=== PATIENT | male | born 1965 | race Caucasian/White ===

== ENCOUNTER 2022-04-07 00:26 | Inpatient (IN) | payer MEDICARE ==
[~2022-04-07] VITALS: Ht 172.7 cm; Wt 123.1 kg
[2022-04-07] MEDS ORDERED: LABETALOL HCL 5 MG/ML 4ML SYRINGE IV ONE ×3 (01:30→03:15)
[2022-04-07] MEDS ORDERED: FUROSEMIDE 100 MG/10ML VIAL IV ONE (01:30)
[2022-04-07 02:12] LABS: Basophils # (auto) 0.1 10 ^3/uL (0-0.2); Basophils % (auto) 0.8 % (0.0-2.0); Eosinophils # (auto) 0.1 10 ^3/uL (0-0.8); Eosinophils % (auto) 1.2 % (0.0-7.0); Hemoglobin 14.5 g/dL (13.5-17.5); Lymphocytes # (auto) 1.3 10 ^3/uL (0.4-5.4); Lymphocytes % (auto) 12.7 % (10.0-50.0); Mean Corpuscular Hemoglobin 31.2 pg (28.0-32.0); Mean Corpuscular Hgb Conc. 33.6 g/dL (32.0-36.0); Mean Corpuscular Volume 92.7 fL (80.0-100.0); Monocytes # (auto) 0.8 10 ^3/uL (0-1.3); Monocytes % (auto) 8.4 % (0.0-12.0); Neutrophils # (auto) 7.6 10 ^3/uL (1.6-8.6); Neutrophils % (auto) 76.9 % (37.0-80.0); Nucleated Red Blood Cells % 0.1 %; Red Blood Cells 4.64 10^6/uL (4.5-5.90); Red Cell Distribution Width 13.9 % (11.8-14.3); White Blood Cell 9.9 10^3/uL (4.4-10.8)
[2022-04-07 02:33] LABS: Albumin 3.2 g/dL (3.4-5.0); Calcium 8.9 mg/dL (8.5-10.1); Potassium 4.3 mmol/L (3.5-5.1)
[2022-04-07 02:35] LABS: BUN/Creatinine Ratio 17.5
[2022-04-07 02:38] LABS: Bilirubin, Total 0.9 mg/dL (0.2-1.0); Total Protein 6.8 g/dL (6.4-8.2)
[2022-04-07] MEDS ORDERED: cloNIDine HCL 0.1 MG TAB PO ONE (03:15)
[2022-04-07] MEDS ORDERED: hydrALAZINE HCL 20 MG/ML VL IV ONE (03:15)
[2022-04-07] MEDS ORDERED: ASPirin-EC 325mg tab PO ONE (03:30)
[2022-04-07] MEDS ORDERED: MORPHINE SULFATE INJ 2 MG/ml SYRG IV PRN (04:15)
[2022-04-07] MEDS ORDERED: ONDANSETRON HCL 4 MG/2 ML VIAL IV PRN (04:15)
[2022-04-07] MEDS ORDERED: cloNIDine HCL 0.1 MG TAB PO PRN (04:15)
[2022-04-07] MEDS ORDERED: NITROGLYCERIN 0.4 MG SL TAB SL PRN (04:15)
[2022-04-07 05:02] LABS: Urine Bacteria FEW /hpf (None Seen); Urine Blood Negative /uL (Negative); Urine Specific Gravity 1.008 (1.001-1.035); Urine Sperm PRESENT /hpf (None Seen); Urine WBC 1 /hpf (0 - 3)
[2022-04-07] MEDS: FUROSEMIDE 20 MG/2 ML VIAL IV SCH ×2 (09:02→17:58)
[2022-04-07] MEDS: ENOXAPARIN SOD 40 MG/0.4 ML SYRINGE SC SCH (10:26)
[2022-04-07] MEDS: LISINOPRIL 10 MG TAB PO SCH (10:27)
[2022-04-07] MEDS: PANTOPRAZOLE 40 MG TAB PO SCH (10:27)
[2022-04-07] MEDS: ASPirin 81 mg TAB PO SCH (10:27)
[2022-04-07] MEDS: CARVEDILOL 3.125 MG TAB PO SCH ×2 (10:28→22:32)
[2022-04-07 18:08] VITALS: BP 138/82
[2022-04-07 22:00] VITALS: BP 134/69
[2022-04-07] MEDS ORDERED: ATORVASTATIN 20 MG TAB PO SCH (22:00)
[2022-04-08 05:00] VITALS: BP 149/117
[2022-04-08] MEDS: FUROSEMIDE 20 MG/2 ML VIAL IV SCH (05:29)
[2022-04-08 06:03] LABS: Basophils # (auto) 0.1 10 ^3/uL (0-0.2); Eosinophils # (auto) 0.2 10 ^3/uL (0-0.8); Eosinophils % (auto) 1.9 % (0.0-7.0); Hematocrit 43.7 % (41.0-53.0); Hemoglobin 14.3 g/dL (13.5-17.5); Lymphocytes # (auto) 1.3 10 ^3/uL (0.4-5.4); Lymphocytes % (auto) 14.4 % (10.0-50.0); Mean Corpuscular Hemoglobin 30.4 pg (28.0-32.0); Mean Corpuscular Hgb Conc. 32.8 g/dL (32.0-36.0); Mean Corpuscular Volume 92.7 fL (80.0-100.0); Monocytes # (auto) 0.8 10 ^3/uL (0-1.3); Monocytes % (auto) 8.5 % (0.0-12.0); Neutrophils # (auto) 6.8 10 ^3/uL (1.6-8.6); Neutrophils % (auto) 74.2 % (37.0-80.0); Nucleated Red Blood Cells % 0.1 %; Red Blood Cells 4.72 10^6/uL (4.5-5.90); Red Cell Distribution Width 14.1 % (11.8-14.3); White Blood Cell 9.1 10^3/uL (4.4-10.8)
[2022-04-08 06:18] LABS: Magnesium 2.1 mg/dL (1.6-2.6)
[2022-04-08 06:21] LABS: BUN/Creatinine Ratio 19.8; Calcium 8.3 mg/dL (8.5-10.1); Potassium 3.8 mmol/L (3.5-5.1)
[2022-04-08 06:24] LABS: Bilirubin, Total 0.6 mg/dL (0.2-1.0); Total Protein 6.5 g/dL (6.4-8.2)
[2022-04-08 08:00] VITALS: BP 175/131
[2022-04-08] MEDS: PANTOPRAZOLE 40 MG TAB PO SCH (08:19)
[2022-04-08] MEDS: ENOXAPARIN SOD 40 MG/0.4 ML SYRINGE SC SCH (08:19)
[2022-04-08] MEDS: ASPirin 81 mg TAB PO SCH (08:19)
[2022-04-08] MEDS: LISINOPRIL 10 MG TAB PO SCH (08:20)
[2022-04-08] MEDS: CARVEDILOL 3.125 MG TAB PO SCH (08:22)
[2022-04-08 09:20] VITALS: BP 175/131
[2022-04-08 12:50] VITALS: BP 121/79
[2022-04-08] MEDS ORDERED: ATORVASTATIN 20 MG TAB PO SCH (22:00)
[2022-04-09] MEDS ORDERED: LISINOPRIL 20 MG TAB PO SCH (10:00)
== END 2022-04-08 16:00 | disposition left against medical advice (07) | DRG 291 ==
LOC: ER 00:29 → TELE 05:22 → TELE-CENTR 16:45
PROVIDERS: ADMIT Nurse Practitioner; ATTEND Nurse Practitioner Acute Care
DX: I11.0 Hypertensive heart disease with heart failure (principal); I50.23 Acute on chronic systolic (congestive) heart failure; J96.01 Acute respiratory failure with hypoxia; Z68.41 Body mass index [BMI] 40.0-44.9, adult; Z53.29 Procedure and treatment not carried out because of patient's decision for other reasons; Z20.822 Contact with and (suspected) exposure to COVID-19; E66.9 Obesity, unspecified; F17.210 Nicotine dependence, cigarettes, uncomplicated; G47.33 Obstructive sleep apnea (adult) (pediatric); Z91.14 Patient's other noncompliance with medication regimen
CPT/HCPCS: 36415; 71045; 80053; 80061; 81001; 82962; 83735; 83880; 84484; 85025; 87426; 93005; 93306; 96372; 96374; 96375; 96376; 99291; G0378; J3490

== ENCOUNTER 2022-06-17 07:11 | Day surgery (SDC) | payer MEDICARE ==
[~2022-06-17] VITALS: Ht 172.7 cm; Wt 104.3 kg
[2022-06-17] VITALS (7 sets, daily range): BP systolic 118–147; BP diastolic 79–99
[~2022-06-17 07:11] MED LIST: AMLO-489 PO; ATOR20TA50 PO; CLON0.1T PO; FURO40TA4 PO; LISI-706 PO; LORA-622 PO; METF-370 PO; METO-159 PO; MONT-8 PO; POTA-180 PO; QUET1TAB11 PO
[2022-06-17] MEDS ORDERED: ANGIOMAX 250 MG VIAL IV ONE (09:09)
[2022-06-17] MEDS ORDERED: fentaNYL CITRATE 100 MCG/2 ML VL ONE (09:09)
[2022-06-17] MEDS ORDERED: MIDAZOLAM HCL 2MG/2ML 2ml VIAL (1mg/ml) ONE (09:09)
[2022-06-17] MEDS ORDERED: HEPARIN SODIUM (PORCINE) 5000 UNITS/ML 1ML VIAL ONE (09:09)
[2022-06-17] MEDS ORDERED: VERAPAMIL 2.5MG/ML INJ 2ML VIAL IV ONE (09:09)
[2022-06-17] MEDS ORDERED: SODIUM CHL 0.9% 0 ML ONE (09:09)
[2022-06-17] MEDS ORDERED: LIDOCAINE 2%HCL (LOCAL ANESTH.) INJ 10ml MDV ONE (09:10)
[2022-06-17] MEDS ORDERED: IODIXANOL 320MG/ML 100ML BTL IV ONE (09:10)
== END 2022-06-17 12:05 | disposition home or self-care (01) ==
LOC: CATH 07:11
PROVIDERS: ATTEND Internal Medicine Cardiovascular Disease
DX: I25.10 Atherosclerotic heart disease of native coronary artery without angina pectoris (principal); I42.8 Other cardiomyopathies; I50.20 Unspecified systolic (congestive) heart failure; J44.9 Chronic obstructive pulmonary disease, unspecified; E66.01 Morbid (severe) obesity due to excess calories; Z98.890 Other specified postprocedural states; Z79.899 Other long term (current) drug therapy; E11.9 Type 2 diabetes mellitus without complications; Z79.84 Long term (current) use of oral hypoglycemic drugs; Z20.822 Contact with and (suspected) exposure to COVID-19
CPT/HCPCS: 93458; C1769; C1887; C1894; C9803; J1644; J2001; J2250; J3010; J7030; Q9967; U0003; 99152

== ENCOUNTER 2024-07-31 19:38 | Inpatient (IN) | payer MEDICARE ==
[~2024-07-31] VITALS: Ht 167.6 cm; Wt 116.8 kg
[~2024-07-31 19:38] MED LIST changes: -AMLO-489 PO; +AMLO1TAB22 PO
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
[2024-07-31 20:26] LABS: Basophils # (auto) 0.1 10 ^3/uL (0-0.2); Basophils % (auto) 0.4 % (0.0-2.0); Eosinophils # (auto) 0.1 10 ^3/uL (0-0.8); Eosinophils % (auto) 0.6 % (0.0-7.0); Hematocrit 40.3 % (41.0-53.0); Lymphocytes # (auto) 0.4 10 ^3/uL (0.4-5.4); Lymphocytes % (auto) 2.3 % (10.0-50.0); Mean Corpuscular Hemoglobin 27.6 pg (28.0-32.0); Mean Corpuscular Hgb Conc. 32.1 g/dL (32.0-36.0); Mean Corpuscular Volume 85.8 fL (80.0-100.0); Monocytes # (auto) 1.4 10 ^3/uL (0-1.3); Neutrophils # (auto) 13.8 10 ^3/uL (1.6-8.6); Neutrophils % (auto) 87.7 % (37.0-80.0); Nucleated Red Blood Cells % 0.1 %; Platelet Count (auto) 292 10^3/uL (140-450); Red Cell Distribution Width 16.4 % (11.8-14.3); White Blood Cell 15.8 10^3/uL (4.4-10.8)
[2024-07-31] MEDS: ACETAMINOPHEN 325 MG TAB PO ONE (20:30)
[2024-07-31 20:41] LABS: INR 1.19 (0.9-1.15); Partial Thromboplastin Time 26.9 SEC (24.5-34.5); Prothrombin Time 12.4 sec (9.3-11.8)
[2024-07-31 20:42] LABS: Alanine Aminotransferase 28 U/L (7-40); Albumin 3.8 g/dL (3.2-4.8); Anion Gap 5 (5-15); Aspartate Aminotransferase 34 U/L (13-40); BUN/Creatinine Ratio 23.5 (10.0-20.0); Calcium 8.9 mg/dL (8.7-10.4); Potassium 4.1 mmol/L (3.5-5.1)
[2024-07-31 20:43] LABS: Alkaline Phosphatase 162 U/L (46-116); Blood Alcohol < 3.0 mg/dL (<10); Blood Urea Nitrogen 23 mg/dL (9-23); Carbon Dioxide 32 mmol/L (20-31); Chloride 94 mmol/L (98-107); Glucose 192 mg/dL (74-106); Sodium 131 mmol/L (136-145); Total Protein 6.8 g/dL (5.7-8.2)
--- NOTE | 2024-07-31 20:56 | DVH ---
CHEST RADIOGRAPH Indication: sob Technique: Single frontal view of the chest was obtained COMPARISON: EKG on DOS: 04/07/22, EKG on DOS: 04/07/22, CXRP on DOS: 04/07/22, CHEST PORTABLE on DOS: 04/07/22, EKG on DOS: 04/06/22 FINDINGS: Lines and Tubes: None Lungs: Low lung volumes. Bibasilar atelectasis/consolidation. Pleura: No effusion. No pneumothorax. Cardiomediastinal contours: Moderate cardiomegaly. IMPRESSION: Low lung volumes. Bibasilar atelectasis/consolidation. Moderate cardiomegaly.
--- NOTE | 2024-07-31 21:13 | DVH ---
Exam: CT CT AB PEL WO CON-NO ORAL OR IV History: abd pain Comparison Study: None available at time of dictation. TECHNIQUE: Multidetector CT of the abdomen and pelvis without contrast. Axial, coronal and sagittal m ultiplanar reformats were obtained from the axial data set by the technologist. Radiation Dose Information: CT Dose: CTDI volume is 24.86 mGy. Dose-length product is 1393.05 mGy*cm FINDINGS: Partially imaged right lower lobe consolidation with trace right-sided pleural effusion. Ogxr-na-qyrd rate cardiomegaly. Mild ascites. Mild hepatomegaly. No focal hepatic lesion. Spleen, pancreas and adrenal glands are u nremarkable. Gallbladder is decompressed with mild nonspecific wall thickening and surrounding ascite s limiting evaluation for acute cholecystitis. Mild to moderate nonspecific bilateral perirenal fat stranding. No hydronephrosis bilaterally. Punct ate nonobstructing left renal calculus. Urinary bladder is unremarkable. Prostate measures 3.6 x 3.7 by 3.4 cm. Mild gastric wall thickening. Mild wall thickening of proximal small bowel loops. The remainder of t he small bowel loops unremarkable. Appendix is not definitely visualized. Mild distal rectal wall thi ckening colonic diverticulosis with limited evaluation for diverticulitis given ascites. Moderate marianne unt of fecal material within the colon. No evidence of intraperitoneal free air. No evidence of aortic aneurysm. Cevw-qs-idyrnelr atheroscler otic calcification of the aorta and bilateral iliacs. Shotty para-aortic lymph nodes. Small to moderate fat containing bilateral inguinal hernias. Multiple small and moderate sized fat an d ascitic fluid containing periumbilical hernias. Mild soft tissue edema. Appears to be old fracture deformity of the left pelvic bone. No evidence of acute fractures. Punctate hyperdensities within th e soft tissues of the left posterior pelvic region. IMPRESSION: Mild ascites. Mild gastric and proximal small bowel wall thickening which may be due to inadequate distention with/ gastroenteritis. Dayu-ox-[id number] nonspecific bilateral perinephric fat stranding. Infectious process can not be excl uded. Decompressed gallbladder with no evidence of cholelithiasis and nonspecific gallbladder wall thickeni ng. Right upper quadrant ultrasound may be considered for further evaluation if clinically indicated . Punctate nonobstructing left renal calculus. Moderate amount of fecal material within the colon. Colonic diverticulosis without diverticulitis. Mild distal rectal wall thickening which may be due to inadequate distention with neoplasm not exclud ed. Right lower lobe pneumonia with trace ascites. Additional findings as above.
[2024-07-31 21:30] VITALS: PULSE 71; RESP 18; O2SAT 92
[2024-07-31] MEDS: cefTRIAXone 1GM/50ML D5W 50 ML IV ONE (22:04)
[2024-07-31 22:50] LABS: Base Excess 4.5 mmol/L (-2.0-3.0)
[2024-07-31 23:08] VITALS: PULSE 78; O2SAT 98
[2024-07-31 23:12] VITALS: BP 169/94; PULSE 93; RESP 16; TEMP 100.9; O2SAT 98
--- NOTE | 2024-07-31 23:27 | DVH ---
CT HEAD WITHOUT CONTRAST INDICATION: LETHARGY COMPARISON: None TECHNIQUE: CT of the head without intravenous contrast. RADIATION DOSE: CTDIvol: 69.01 mGy, DLP: 2265.47 mGy*cm FINDINGS: There is no evidence of intracranial hemorrhage, infarct, extra-axial collection, mass effect, midli ne shift, herniation or hydrocephalus. The ventricles, sulci and cisterns are normal. The luque-whit e differentiation is normal. Probable old fracture of inferior wall of left orbit. No calvarial abnormality/fracture. Circumferent ial mucosal thickening in bilateral maxillary sinuses, mild mucosal thickening in left sphenoid sinus . Nonspecific right-sided mastoid effusion. IMPRESSION: No intracranial abnormality identified.
[2024-08-01] VITALS (7 sets, daily range): BP systolic 97–148; BP diastolic 73–87; PULSE 64–77; RESP 20; TEMP 97.6; O2SAT 96–100
[2024-08-01] MEDS ORDERED: CLON0.1T PO (03:49)
[2024-08-01] MEDS ORDERED: AMLO1TAB22 PO (03:49)
[2024-08-01] MEDS ORDERED: BUME1TAB3 PO (03:49)
[2024-08-01] MEDS ORDERED: POTA-220 PO (03:49)
[2024-08-01] MEDS ORDERED: CARV12.544 PO (03:49)
[2024-08-01] MEDS ORDERED: LOSA-535 PO (03:49)
[2024-08-01 06:18] LABS: Amphetamine Screen, Urine Pos (NEGATIVE); Barbiturate Scree,Urine Neg (NEGATIVE); Benzodiazephine Screen, Urine Neg (NEGATIVE); Cannabinoid Screen, Urine Neg (NEGATIVE); Cocaine Screen, Urine Neg (NEGATIVE); Opiate Scree,Urine Neg (NEGATIVE); Phencyclidine Screen, Urine Neg (NEGATIVE)
[2024-08-01 08:07] LABS: Basophils # (auto) 0.1 10 ^3/uL (0-0.2); Basophils % (auto) 0.5 % (0.0-2.0); Eosinophils # (auto) 0.1 10 ^3/uL (0-0.8); Eosinophils % (auto) 0.3 % (0.0-7.0); Hematocrit 39.5 % (41.0-53.0); Lymphocytes # (auto) 0.7 10 ^3/uL (0.4-5.4); Lymphocytes % (auto) 4.7 % (10.0-50.0); Mean Corpuscular Hemoglobin 28.1 pg (28.0-32.0); Mean Corpuscular Hgb Conc. 32.9 g/dL (32.0-36.0); Mean Corpuscular Volume 85.5 fL (80.0-100.0); Monocytes # (auto) 1.2 10 ^3/uL (0-1.3); Monocytes % (auto) 7.8 % (0.0-12.0); Neutrophils # (auto) 12.9 10 ^3/uL (1.6-8.6); Neutrophils % (auto) 86.7 % (37.0-80.0); Nucleated Red Blood Cells % 0.1 %; Platelet Count (auto) 269 10^3/uL (140-450); Red Blood Cells 4.62 10^6/uL (4.5-5.90); Red Cell Distribution Width 16.3 % (11.8-14.3); White Blood Cell 14.9 10^3/uL (4.4-10.8)
[2024-08-01 08:10] LABS: Alanine Aminotransferase 24 U/L (7-40); Albumin 3.6 g/dL (3.2-4.8); Anion Gap 2 (5-15); Aspartate Aminotransferase 24 U/L (13-40); BUN/Creatinine Ratio 22.7 (10.0-20.0); Blood Urea Nitrogen 20 mg/dL (9-23); Calcium 9.1 mg/dL (8.7-10.4); Potassium 4.5 mmol/L (3.5-5.1)
[2024-08-01 08:11] LABS: Total Protein 6.4 g/dL (5.7-8.2)
[2024-08-01 08:15] LABS: Alkaline Phosphatase 141 U/L (46-116); Carbon Dioxide 38 mmol/L (20-31); Chloride 96 mmol/L (98-107); Glucose 161 mg/dL (74-106); Sodium 136 mmol/L (136-145)
[2024-08-01] MEDS ORDERED: DOCUSATE SOD 100 MG CAP PO PRN (09:00)
[2024-08-01] MEDS ORDERED: HYDROcodone-ACET 5/325MG TAB PO PRN (09:00)
[2024-08-01] MEDS ORDERED: NITROGLYCERIN 0.4 MG SL TAB SL PRN (09:00)
[2024-08-01] MEDS ORDERED: ONDANSETRON HCL 4 MG/2 ML VIAL IV PRN (09:00)
--- NOTE | 2024-08-01 09:13 | DVHHP2 ---
History of Present Illness Reason for Visit: Shortness of breath History of Present Illness Howard Sanders Jr is a 58-year-old male with past medical history of CHF, hypertension, diabetes, and COPD with home oxygen use, who came in due to shortness of breath. Patient states has had shortness of breath for years, but it worsened over the last 2 days prompting him to come to the hospital. Patient appears to have sever sleep apnea. BiPAP orders for while sleeping in place, patient tolerates it well. Cardiovascular: CHF, HTN Pulmonary: COPD Endocrine: Diabetes Smoke: Quit (1 month ago) ALCOHOL: none Drugs: Other (Denies drug use, UDS positive for methamphetamines) Lives: with Family Domestic Violence: Neg Review of Systems Constitutional: Yes: Malaise; No: Fever, Chills, Sweats, Weakness, Other Eyes: No: Pain, Vision change, Conjunctivae inflammation, Eyelid inflammation, Other, Redness ENT: No: Ear pain, Ear discharge, Nose pain, Nose discharge, Nose congestion, Mouth pain, Mouth swelling, Throat pain, Throat swelling, Other Respiratory: Cough, Shortness of breath, SOB with excertion, Wheezing; No: Dry, Hemoptysis, Pleuritic Pain, Sputum, Wheezing, Other Cardiovascular: No: Chest Pain, Palpitations, Orthopnea, Paroxysmal Noc. Dyspnea, Edema, Lt Headedness, Other Gastrointestinal: No: Nausea, Vomiting, Abdominal Pain, Diarrhea, Constipation, Melena, Hematochezia, Other Genitourinary: No Dysuria, No Frequency, No Incontinence, No Hematuria, No Retention, No Other Musculoskeletal: No: other, neck pain, shoulder pain, arm pain, back pain, hand pain, leg pain, foot pain Skin: No: Rash, Lesions, Jaundice, Bruising, Other Neurological: No: Weakness, Numbness, Incoordination, Change in speech, Confusion, Seizures, Other Allergies: Coded Allergies: Gabapentin (Verified Allergy, Severe, 04/07/22) Hydrocodone (Verified Allergy, Severe, 06/13/22) Pt states he can take [place] no problem. It's only the brand name vicodin, also no problem with tylenol. Medications Current Medications Medications Dose Ordered Sig/Carlos Alberto Route Start Time Stop Time Status Last Admin Dose Admin Sodium Chloride 10 ml Q8HR IV 08/01/24 14:00 UNV Acetaminophen/ Hydrocodone Bitart 1 tab Q4HP PRN PO 08/01/24 09:00 UNV Ondansetron HCl 4 mg Q4HP PRN IV 08/01/24 09:00 UNV Docusate Sodium 100 mg BIDPRN PRN PO 08/01/24 09:00 UNV Acetaminophen 650 mg Q6HP PRN PO 08/01/24 09:00 UNV Nitroglycerin 0.4 mg Q5MINP PRN SL 08/01/24 09:00 UNV Morphine Sulfate 2 mg Q30M PRN IV 08/01/24 09:00 UNV Amlodipine Besylate 5 mg DAILY PO 08/01/24 10:00 UNV Atorvastatin Calcium 20 mg HS PO 08/01/24 22:00 UNV Bumetanide 1 mg BID PO 08/01/24 10:00 UNV Carvedilol 12.5 mg BID PO 08/01/24 10:00 UNV Patient Own Medication 100 mg DAILY PO 08/01/24 10:00 UNV Exam Vital Signs Vital Signs Date Time Temp Pulse Resp B/P (MAP) Pulse Ox O2 Delivery O2 Flow Rate FiO2 08/01/24 08:00 97.4 76 24 128/66 (86) 95 97.4 08/01/24 07:54 Nasal Cannula* 5 40 General Appearance: Alert, Oriented X3, Cooperative, moderate distress HEENT: Atraumatic, PERRLA Respiratory: Other (bilateral diminshed breath sounds, bilateral wheezing) Cardiovascular: Regular rate, Normal S1, Normal S2 Abdominal: Normal bowel sounds, Soft, No tenderness Extremities: No clubbing, No cyanosis, Other (Bilateral lower extremity edema. Left lower extremity +4 edema, discolored, diminished cap refill, dry flaky skin) Skin: No rashes, No breakdown Neuro: Normal speech Psych/Mental Status: Mental status NL, Mood NL Labs/Xrays Labs Test 08/01/24 07:40 08/01/24 05:00 07/31/24 22:41 07/31/24 20:16 Range/Units White Blood Count 14.9 H 4.4-10.8 10^3/uL Red Blood Count 4.62 4.5-5.90 10^6/uL Hemoglobin 13.0 L 13.5-17.5 g/dL Hematocrit 39.5 L 41.0-53.0 % Mean Corpuscular Volume 85.5 80.0-100.0 fL Mean Corpuscular Hemoglobin 28.1 28.0-32.0 pg Mean Corpuscular Hemoglobin Concent 32.9 32.0-36.0 g/dL Red Cell Distribution Width 16.3 H 11.8-14.3 % Platelet Count 269 140-450 10^3/uL Mean Platelet Volume 7.9 6.9-10.8 fL Neutrophils (%) (Auto) 86.7 H 37.0-80.0 % Lymphocytes (%) (Auto) 4.7 L 10.0-50.0 % Monocytes (%) (Auto) 7.8 0.0-12.0 % Eosinophils (%) (Auto) 0.3 0.0-7.0 % Basophils (%) (Auto) 0.5 0.0-2.0 % Neutrophils # (Auto) 12.9 H 1.6-8.6 10 ^3/uL Lymphocytes # (Auto) 0.7 0.4-5.4 10 ^3/uL Monocytes # (Auto) 1.2 0-1.3 10 ^3/uL Eosinophils # (Auto) 0.1 0-0.8 10 ^3/uL Basophils # (Auto) 0.1 0-0.2 10 ^3/uL Nucleated Red Blood Cells 0.1 % Sodium Level 136 # 136-145 mmol/L Potassium Level 4.5 3.5-5.1 mmol/L Chloride Level 96 L 98-107 mmol/L Carbon Dioxide Level 38 H 20-31 mmol/L Anion Gap 2 L 5-15 Blood Urea Nitrogen 20 9-23 mg/dL Creatinine 0.88 0.700-1.30 mg/dL Glomerular Filtration Rate Calc 98 >90 mL/min BUN/Creatinine Ratio 22.7 H 10.0-20.0 Serum Glucose 161 H 74-106 mg/dL Calcium Level 9.1 8.7-10.4 mg/dL Total Bilirubin 1.0 0.2-1.0 mg/dL Aspartate Amino Transferase (AST) 24 13-40 U/L Alanine Aminotransferase (ALT) 24 7-40 U/L Alkaline Phosphatase 141 H 46-116 U/L Total Protein 6.4 5.7-8.2 g/dL Albumin 3.6 3.2-4.8 g/dL Urine Opiates Screen Neg NEGATIVE Urine Fentanyl Screen Neg NEGATIVE Urine Barbiturates Screen Neg NEGATIVE Urine Phencyclidine Screen Neg NEGATIVE Urine Amphetamines Screen Pos NEGATIVE Urine Benzodiazepines Screen Neg NEGATIVE Urine Cocaine Screen Neg NEGATIVE Urine Cannabinoids Screen Neg NEGATIVE Blood Gas Specimen Type Arterial Blood Gas Sample Site Right radial Blood Gas Patient Temperature 37.0 Arterial Blood Date Drawn [id number] Arterial Blood pH 7.366 7.350-7.450 Arterial Blood Partial Pressure CO2 56.0 H 35.0-48.0 mmHg Arterial Blood Partial Pressure O2 66.7 L 83.0-108.0 mmHg Arterial Blood HCO3 31.4 H 21.0-28.0 mmol/L Arterial Blood Oxygen Saturation 91.8 L 94.0-98.0 % Arterial Blood Base Excess 4.5 H -2.0-3.0 mmol/L Arterial Blood Oxyhemoglobin 90.1 L 94.0-98.0 % Arterial Blood Carboxyhemoglobin 1.7 H 0.5-1.5 % Arterial Blood Methemoglobin 0.2 0.0-1.5 % Sumeet Test Modified Blood Gas Total Hemoglobin 13.80 13.5-17.5 g/dL Blood Gas Liter Flow 10.00 Blood Gas Modality Mask - simple FiO2 % 60.0 Prothrombin Time 12.4 H 9.3-11.8 sec Prothrombin Time INR 1.19 H 0.9-1.15 Activated Partial Thromboplast Time 26.9 24.5-34.5 SEC Lactic Acid Level 1.7 0.4-2.0 mmol/L Ammonia 32 11-32 umol/L Plasma/Serum Blood Alcohol < 3.0 <10 mg/dL Exam: CT CT AB PEL WO CON-NO ORAL OR IV FINDINGS: Partially imaged right lower lobe consolidation with trace right-sided pleural effusion. Akre-yw-hmoflnne cardiomegaly. Mild ascites. Mild hepatomegaly. No focal hepatic lesion. Spleen, pancreas and adrenal glands are unremarkable. Gallbladder is decompressed with mild nonspecific wall thickening and surrounding ascites limiting evaluation for acute cholecystitis. Mild to moderate nonspecific bilateral perirenal fat stranding. No hyd ronephrosis bilaterally. Punctate nonobstructing left renal calculus. Urinary bladder is unremarkable. Prostate measures 3.6 x 3.7 by 3.4 cm. Mild gastric wall thickening. Mild wall thickening of proximal small bowel loops. The remainder of the small bowel loops unremarkable. Appendix is not definitely visualized. Mild distal rectal wall thickening colonic diverticulosis with limited evaluation for diverticulitis given ascites. Moderate amount of fecal material within the colon. No evidence of intraperitoneal free air. No evidence of aortic aneurysm. Atzq-au-fkbbrxxl atherosclerotic calcification of the aorta and bilateral iliac s. Shotty para-aortic lymph nodes. Small to moderate fat containing bilateral inguinal hernias. Multiple small and moderate sized fat and ascitic fluid containing periumbilical hernias. Mild soft tissue edema. Appears to be old fracture deformity of the left pelvic bone. No evidence of acute fractures. Punctate hyperdensities within the soft tissues of the left posterior pelvic region. IMPRESSION: Mild ascites. Mild gastric and proximal small bowel wall thickening which may be due to inadequate distention with/gastroenteritis. Yxqi-jm-keolftek nonspecific bilateral perinephric fat stranding. Infectious process can not be excluded. Decompressed gallbladder with no evidence of cholelithiasis and nonspecific gallbladder wall thickening. Right upper quadrant ultrasound may be considered for further evaluation if clinically indicated. Punctate nonobstructing left renal calculus. Moderate amount of fecal material within the colon. Colonic diverticulosis without diverticulitis. Mild distal rectal wall thickening which may be due to inadequate distention with neoplasm not excluded. Right lower lobe pneumonia with trace ascites. Additional findings as above. CHEST RADIOGRAPH FINDINGS: Lines and Tubes: None Lungs: Low lung volumes. Bibasilar atelectasis/consolidation. Pleura: No effusion. No pneumothorax. Cardiomediastinal contours: Moderate cardiomegaly. IMPRESSION: Low lung volumes. Bibasilar atelectasis/consolidation. Moderate cardiomegaly. CT HEAD WITHOUT CONTRAST FINDINGS: There is no evidence of intracranial hemorrhage, infarct, extra-axial collection, mass effect, midline shift, herniation or hydrocephalus. The ventricles, sulci and cisterns are normal. The luque-white differentiation is normal. Probable old fracture of inferior wall of left orbit. No calvarial abnormality/fracture. Circumferential mucosal thickening in bilateral maxillary sinuses, mild mucosal thickening in left sphenoid sinus. Nonspecific right-sided mastoid effusion. IMPRESSION: No intracranial abnormality identified. Assessment/Plan Assessment/Plan Assessment: Right lower lobe pneumonia, Diabetes, COPD, Hypertension, Hyperglycemia, Plan: Admit to Tele, BiPAP when sleeping, Supplemental oxygen as needed, IV antibiotics, IV hydration, Follow up X-ray in am, A1c in am, Home medications reconciled, Plan discussed with: Patient My Orders Orders - LUIS PAIZ Procedure Category Date Status Time Admit ADMIT 08/01/24 Transmitted 08:54 Code Status CODE 08/01/24 Transmitted 08:54 Sodium Chloride Lock PHA 08/01/24 Logged (Saline Lock Ns) 14:00 Hydrocodone-Acet PHA 08/01/24 Logged 5/325mg Tab ([place] 09:00 Ondansetron Hcl PHA 08/01/24 Logged (Zofran) 09:00 Docusate Sodium PHA 08/01/24 Logged Capsule (Colace 09:00 Complete Blood Count LAB 08/02/24 Verified 04:00 Comprehensive LAB 08/02/24 Verified Metabolic Panel 04:00 Cardiac DIET 08/01/24 Transmitted Diet-2gna,Lofat,Lochol Breakfast Condition: Serious LUIS 08/01/24 In Process 08:54 Acetaminophen Tablet PHA 08/01/24 Logged (Tylenol Tablet) 09:00 Nitroglycerin PHA 08/01/24 Logged Sublingual (Ntrostat 09:00 Morphine Sulfate PHA 08/01/24 Logged Injection 09:00 Stat Ekg For Chest LUIS 08/01/24 In Process Pain 08:54 Notify Md Of Changes LUIS 08/01/24 In Process From Base 08:54 Duplex Trimmer For LUIS 08/01/24 In Process 24 Hours 08:54 Emergency Dysrhythmia LUIS 08/01/24 In Process Protocol 08:54 Rhythm Strips Once LUIS 08/01/24 In Process Every Shift 08:54 Oxygen By Nasal RT 08/01/24 Transmitted Cannula 08:54 Amlodipine Tablet PHA 08/01/24 Logged (Norvasc Tablet) 10:00 Atorvastatin (Lipitor) PHA 08/01/24 Logged 22:00 Bumetanide Tablet PHA 08/01/24 Logged (Bumex Tablet) 10:00 Carvedilol Tablet PHA 08/01/24 Logged (Coreg Tablet) 10:00 (Nf) Losartan PHA 08/01/24 Logged Potassium 10:00 Chest Portable XY 08/02/24 Verified 04:00 Date of Service: Aug 01, 2024 Billing Provider: LUIS PAIZ Common Visit Codes: [id number] INP/OBS CARE (MOD) LUIS PAIZ Aug 01, 2024 09:13
[2024-08-01] MEDS ORDERED: DEXTROSE (50%) 50ML SYRG IV PRN (09:15)
[2024-08-01] MEDS: BUMETANIDE 1 MG TAB PO SCH (11:03)
[2024-08-01] MEDS: amLODIPine BESYLATE 5 MG TAB PO SCH (11:04)
[2024-08-01] MEDS: LOSARTAN POTASSIUM 50 MG TAB PO SCH (11:04)
[2024-08-01] MEDS: CARVEDILOL 12.5 MG TAB PO SCH (11:05)
[2024-08-01] MEDS: ACCU-CHEK COMFORT CURVE STRIP VI SCH (11:30)
[2024-08-01] MEDS: InsuLIN REG 1unit/0.01ml Soln (100units/ml) SC SCH ×2 (12:12→22:27)
--- NOTE | 2024-08-01 13:44 | ECG ---
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
[2024-08-01] MEDS: SODIUM CHLOR 0.9% PF (SALINE LOCK) 10ML VIAL/SYR IV SCH (14:00)
[2024-08-01] MEDS: ACETAMINOPHEN 325 MG TAB PO PRN (16:44)
[2024-08-01] MEDS: MORPHINE SULFATE INJ 2 MG/ml SYRG IV PRN (18:41)
[2024-08-01] MEDS: ATORVASTATIN 20 MG TAB PO SCH (22:25)
[2024-08-02] VITALS (13 sets, daily range): BP systolic 100–126; BP diastolic 72–87; PULSE 65–77; RESP 17–20; TEMP 97.5–98.1; O2SAT 93–100
--- NOTE | 2024-08-02 06:56 | DVH ---
EXAM: XR Chest, 1 View CLINICAL INDICATION: SOB TECHNIQUE: Frontal view of the chest. COMPARISON: None FINDINGS: LUNGS AND PLEURAL SPACES: See below. HEART: Cardiomegaly with pulmonary congestion and edema. Superimposed pneumonia cannot be excluded. MEDIASTINUM: Unremarkable. Normal mediastinal contour. BONES/JOINTS: Unremarkable. No acute fracture. OTHER FINDINGS: . None. . .. IMPRESSION: Cardiomegaly with pulmonary congestion and edema. Superimposed pneumonia cannot be excluded.
[2024-08-02 07:51] LABS: Alanine Aminotransferase 24 U/L (7-40); Albumin 3.4 g/dL (3.2-4.8); Anion Gap 6 (5-15); Aspartate Aminotransferase 26 U/L (13-40); BUN/Creatinine Ratio 25.7 (10.0-20.0); Bilirubin, Total 0.7 mg/dL (0.2-1.0); Calcium 9.4 mg/dL (8.7-10.4); Potassium 4.2 mmol/L (3.5-5.1)
[2024-08-02 07:52] LABS: Total Protein 6.2 g/dL (5.7-8.2)
[2024-08-02 07:59] LABS: Alkaline Phosphatase 177 U/L (46-116); Blood Urea Nitrogen 28 mg/dL (9-23); Carbon Dioxide 33 mmol/L (20-31); Chloride 96 mmol/L (98-107); Glucose 143 mg/dL (74-106); Sodium 135 mmol/L (136-145)
[2024-08-02 08:01] LABS: Basophils # (auto) 0.1 10 ^3/uL (0-0.2); Basophils % (auto) 0.5 % (0.0-2.0); Eosinophils # (auto) 0.4 10 ^3/uL (0-0.8); Eosinophils % (auto) 3.2 % (0.0-7.0); Hemoglobin 12.6 g/dL (13.5-17.5); Lymphocytes # (auto) 0.9 10 ^3/uL (0.4-5.4); Lymphocytes % (auto) 7.2 % (10.0-50.0); Mean Corpuscular Hemoglobin 27.3 pg (28.0-32.0); Mean Corpuscular Hgb Conc. 31.6 g/dL (32.0-36.0); Mean Corpuscular Volume 86.4 fL (80.0-100.0); Monocytes # (auto) 1.4 10 ^3/uL (0-1.3); Monocytes % (auto) 11.3 % (0.0-12.0); Neutrophils # (auto) 9.4 10 ^3/uL (1.6-8.6); Neutrophils % (auto) 77.8 % (37.0-80.0); Nucleated Red Blood Cells % 0.1 %; Platelet Count (auto) 311 10^3/uL (140-450); Red Blood Cells 4.63 10^6/uL (4.5-5.90); Red Cell Distribution Width 16.3 % (11.8-14.3); White Blood Cell 12.1 10^3/uL (4.4-10.8)
[2024-08-02] MEDS ORDERED: HYDROcodone-ACET 5/325MG TAB PO PRN (10:00)
[2024-08-02] MEDS: KETOROLAC TROMETH 30 MG/ML 1ML VIAL IV ONE (17:45)
[2024-08-02] MEDS: cefTRIAXone 1GM/50ML D5W 50 ML IV ONE (17:45)
[2024-08-02] MEDS: AZITHROMYCIN 500MG/ 250ML 250 ML IV ONE (18:13)
[2024-08-02] MEDS: IPRATROPIUM BROM 0.5 MG/2.5ML INH SOL NEB SCH (18:55)
[2024-08-02] MEDS: ALBUTEROL SULF 2.5 MG/0.5ML(0.5%) NEB SOLN NEB SCH (18:55)
[2024-08-02 19:13] LABS: COVID19 ANTIGEN SOFIA FIA NEGATIVE (NEGATIVE); Rapid Influenza A Negative (Negative); Rapid Influenza B Negative (Negative)
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
[2024-08-03] VITALS (19 sets, daily range): BP systolic 129–157; BP diastolic 83–101; PULSE 67–100; RESP 16–24; TEMP 97.6–98.5; O2SAT 73–99
[2024-08-03 07:48] LABS: Basophils # (auto) 0.1 10 ^3/uL (0-0.2); Basophils % (auto) 0.7 % (0.0-2.0); Eosinophils # (auto) 0.5 10 ^3/uL (0-0.8); Hematocrit 40.1 % (41.0-53.0); Hemoglobin 12.8 g/dL (13.5-17.5); Lymphocytes # (auto) 0.8 10 ^3/uL (0.4-5.4); Lymphocytes % (auto) 8.7 % (10.0-50.0); Mean Corpuscular Hemoglobin 27.3 pg (28.0-32.0); Mean Corpuscular Hgb Conc. 31.9 g/dL (32.0-36.0); Mean Corpuscular Volume 85.7 fL (80.0-100.0); Monocytes # (auto) 1.1 10 ^3/uL (0-1.3); Monocytes % (auto) 12.1 % (0.0-12.0); Neutrophils # (auto) 6.9 10 ^3/uL (1.6-8.6); Neutrophils % (auto) 73.5 % (37.0-80.0); Platelet Count (auto) 356 10^3/uL (140-450); Red Blood Cells 4.68 10^6/uL (4.5-5.90); Red Cell Distribution Width 16.2 % (11.8-14.3); White Blood Cell 9.4 10^3/uL (4.4-10.8)
[2024-08-03] MEDS: cefTRIAXone 1GM/50ML D5W 50 ML IV SCH (08:39)
[2024-08-03 09:20] LABS: Alanine Aminotransferase 23 U/L (7-40); Anion Gap 8 (5-15); Calcium 9.6 mg/dL (8.7-10.4); Potassium 4.3 mmol/L (3.5-5.1)
[2024-08-03 09:22] LABS: Aspartate Aminotransferase 21 U/L (13-40); BUN/Creatinine Ratio 25.6 (10.0-20.0)
[2024-08-03 09:23] LABS: Alkaline Phosphatase 154 U/L (46-116); Blood Urea Nitrogen 30 mg/dL (9-23); Carbon Dioxide 33 mmol/L (20-31); Chloride 94 mmol/L (98-107); Glucose 127 mg/dL (74-106); Sodium 135 mmol/L (136-145)
[2024-08-03 09:24] LABS: Albumin 3.6 g/dL (3.2-4.8); Bilirubin, Total 0.8 mg/dL (0.2-1.0)
[2024-08-03 09:25] LABS: Total Protein 6.6 g/dL (5.7-8.2)
[2024-08-03] MEDS: AZITHROMYCIN 500MG/ 250ML 250 ML IV SCH (12:06)
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
[2024-08-03] MEDS: OXYCODONE W/ ACETAMINOPHEN 5/325MG TABLET PO PRN (21:42)
[2024-08-03] MEDS ORDERED: MORPHINE SULFATE INJ 2 MG/ml SYRG IV PRN (23:30)
[2024-08-04] VITALS (19 sets, daily range): BP systolic 120–158; BP diastolic 66–96; PULSE 60–89; RESP 18–22; TEMP 97.4–98.7; O2SAT 90–100
[2024-08-04] MEDS: methylPREDNISolone SOD SUCC 125 MG/2 ML VL IV ONE (13:15)
--- NOTE | 2024-08-04 14:22 | DVH ---
EXAM: CT HEAD WITHOUT CONTRAST INDICATION: R/O RT MASTOIDITIS TECHNIQUE: CT of the head without intravenous contrast. Coronal and sagittal reformatted images are submitted. Radiation Dose : 1. Head: CT Dose: CTDI volume is 61.77 mGy. Dose-length product is 989.97 mGy*cm The dose indicators for CT are the volume Computed Tomography (CT) Dose Index (CTDIvol) and the Dose Length Product (DLP), and are measured in units of mGy and mGy-cm, respectively. These indicators are not patient dose, but values generated from the CT scanner acquisition factors. The report includes radiation exposure data for exposures received during this examination. All CT scans at this medical facility are performed using dose modulation techniques as appropriate to a performed exam including the following: Automated exposure control was utilized; adjustment of the MA and/or KV according to patient size; and use of iterative reconstruction technique. COMPARISON: CT HEAD WITHOUT CONTRAST on DOS: 07/31/24 FINDINGS: There is no evidence of acute intracranial hemorrhage, extra-axial collection, mass effect, midline s hift, herniation or hydrocephalus. The ventricles, sulci and cisterns are age appropriate. The luque-white differentiation is intact. Mucosal thickening in the bilateral maxillary sinuses and sphenoid sinus. Opacification of the right mastoid air cells. Findings are similar to prior CT from 07/31/2024 No depressed calvarial fracture. The surrounding soft tissues are unremarkable. IMPRESSION: 1. No evidence of acute intracranial abnormality. 2. Paranasal sinus opacification and right mastoid air cell opacification similar to prior CT. HS:Y
[2024-08-04] MEDS: DOXYCYCLINE 100MG/100ML 100 ML IV ONE (18:03)
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
[2024-08-04] MEDS: DOXYCYCLINE 100 MG TAB/CAP PO SCH (21:58)
[2024-08-04] MEDS ORDERED: DEXTROSE (50%) 50ML SYRG IV PRN (22:45)
[2024-08-05] VITALS (16 sets, daily range): BP systolic 120–148; BP diastolic 65–96; PULSE 69–94; RESP 18–20; TEMP 97.4–98.7; O2SAT 91–100
[2024-08-05] MEDS: ACCU-CHEK COMFORT CURVE STRIP VI SCH (06:00)
[2024-08-05 06:55] LABS: Basophils # (auto) 0 10 ^3/uL (0-0.2); Basophils % (auto) 0.3 % (0.0-2.0); Eosinophils # (auto) 0 10 ^3/uL (0-0.8); Hemoglobin 12.6 g/dL (13.5-17.5); Neutrophils # (auto) 10.9 10 ^3/uL (1.6-8.6)
[2024-08-05 07:00] LABS: Hematocrit 38.8 % (41.0-53.0); Lymphocytes # (auto) 0.6 10 ^3/uL (0.4-5.4); Lymphocytes % (auto) 4.9 % (10.0-50.0); Mean Corpuscular Hemoglobin 27.3 pg (28.0-32.0); Mean Corpuscular Hgb Conc. 32.6 g/dL (32.0-36.0); Mean Corpuscular Volume 83.9 fL (80.0-100.0); Monocytes # (auto) 0.5 10 ^3/uL (0-1.3); Monocytes % (auto) 4.4 % (0.0-12.0); Neutrophils % (auto) 90.4 % (37.0-80.0); Platelet Count (auto) 418 10^3/uL (140-450); Red Blood Cells 4.63 10^6/uL (4.5-5.90); Red Cell Distribution Width 16.2 % (11.8-14.3)
[2024-08-05 07:06] LABS: Alanine Aminotransferase 25 U/L (7-40); Albumin 3.7 g/dL (3.2-4.8); Anion Gap 6 (5-15); Aspartate Aminotransferase 20 U/L (13-40); BUN/Creatinine Ratio 23.9 (10.0-20.0); Blood Urea Nitrogen 21 mg/dL (9-23); Calcium 9.9 mg/dL (8.7-10.4); Sodium 137 mmol/L (136-145)
[2024-08-05 07:07] LABS: Bilirubin, Total 0.8 mg/dL (0.2-1.0); Total Protein 6.8 g/dL (5.7-8.2)
[2024-08-05 07:12] LABS: Alkaline Phosphatase 169 U/L (46-116); Carbon Dioxide 39 mmol/L (20-31); Chloride 92 mmol/L (98-107); Glucose 187 mg/dL (74-106)
[2024-08-05] MEDS: BUMETANIDE 2.5mg/10ml (0.25 mg/ml) INJ IV ONE (10:25)
[2024-08-05] MEDS ORDERED: DOXY1CAP58 PO (14:35)
--- NOTE | 2024-08-05 15:09 | DVHDS2 ---
Discharge Summary Date of Admission Aug 01, 2024 at 08:54 Date of Discharge: Aug 05, 2024 Admitting Diagnosis sob Labs/Diagnostic Data: Laboratory Results Test 08/05/24 06:18 08/05/24 05:31 08/02/24 18:27 08/02/24 06:28 White Blood Count 12.0 10^3/uL (4.4-10.8) Red Blood Count 4.63 10^6/uL (4.5-5.90) Hemoglobin 12.6 g/dL (13.5-17.5) Hematocrit 38.8 % (41.0-53.0) Mean Corpuscular Volume 83.9 fL (80.0-100.0) Mean Corpuscular Hemoglobin 27.3 pg (28.0-32.0) Mean Corpuscular Hemoglobin Concent 32.6 g/dL (32.0-36.0) Red Cell Distribution Width 16.2 % (11.8-14.3) Platelet Count 418 10^3/uL (140-450) Mean Platelet Volume 7.3 fL (6.9-10.8) Neutrophils (%) (Auto) 90.4 % (37.0-80.0) Lymphocytes (%) (Auto) 4.9 % (10.0-50.0) Monocytes (%) (Auto) 4.4 % (0.0-12.0) Eosinophils (%) (Auto) 0.0 % (0.0-7.0) Basophils (%) (Auto) 0.3 % (0.0-2.0) Neutrophils # (Auto) 10.9 10 ^3/uL (1.6-8.6) Lymphocytes # (Auto) 0.6 10 ^3/uL (0.4-5.4) Monocytes # (Auto) 0.5 10 ^3/uL (0-1.3) Eosinophils # (Auto) 0 10 ^3/uL (0-0.8) Basophils # (Auto) 0 10 ^3/uL (0-0.2) Nucleated Red Blood Cells 0.0 % Sodium Level 137 mmol/L (136-145) Potassium Level 4.0 mmol/L (3.5-5.1) Chloride Level 92 mmol/L (98-107) Carbon Dioxide Level 39 mmol/L (20-31) Anion Gap 6 (5-15) Blood Urea Nitrogen 21 mg/dL (9-23) Creatinine 0.88 mg/dL (0.700-1.30) Glomerular Filtration Rate Calc 98 mL/min (>90) BUN/Creatinine Ratio 23.9 (10.0-20.0) Serum Glucose 187 mg/dL (74-106) Calcium Level 9.9 mg/dL (8.7-10.4) Total Bilirubin 0.8 mg/dL (0.2-1.0) Aspartate Amino Transferase (AST) 20 U/L (13-40) Alanine Aminotransferase (ALT) 25 U/L (7-40) Alkaline Phosphatase 169 U/L (46-116) Total Protein 6.8 g/dL (5.7-8.2) Albumin 3.7 g/dL (3.2-4.8) POC Glucose 178 mg/dl (70-106) Influenza Type A Antigen Negative (Negative) Influenza Type B Antigen Negative (Negative) SARS-CoV-2 Antigen (Rapid) Negative (NEGATIVE) Hemoglobin A1c 8.5 % A1C (<5.7) Test 08/01/24 05:00 07/31/24 22:41 07/31/24 20:16 Urine Opiates Screen Neg (NEGATIVE) Urine Fentanyl Screen Neg (NEGATIVE) Urine Barbiturates Screen Neg (NEGATIVE) Urine Phencyclidine Screen Neg (NEGATIVE) Urine Amphetamines Screen Pos (NEGATIVE) Urine Benzodiazepines Screen Neg (NEGATIVE) Urine Cocaine Screen Neg (NEGATIVE) Urine Cannabinoids Screen Neg (NEGATIVE) Blood Gas Specimen Type Arterial Blood Gas Sample Site Right radial Blood Gas Patient Temperature 37.0 Arterial Blood Date Drawn [id number] Arterial Blood pH 7.366 (7.350-7.450) Arterial Blood Partial Pressure CO2 56.0 mmHg (35.0-48.0) Arterial Blood Partial Pressure O2 66.7 mmHg (83.0-108.0) Arterial Blood HCO3 31.4 mmol/L (21.0-28.0) Arterial Blood Oxygen Saturation 91.8 % (94.0-98.0) Arterial Blood Base Excess 4.5 mmol/L (-2.0-3.0) Arterial Blood Oxyhemoglobin 90.1 % (94.0-98.0) Arterial Blood Carboxyhemoglobin 1.7 % (0.5-1.5) Arterial Blood Methemoglobin 0.2 % (0.0-1.5) Sumeet Test Modified Blood Gas Total Hemoglobin 13.80 g/dL (13.5-17.5) Blood Gas Liter Flow 10.00 Blood Gas Modality Mask - simple FiO2 % 60.0 Prothrombin Time 12.4 sec (9.3-11.8) Prothrombin Time INR 1.19 (0.9-1.15) Activated Partial Thromboplast Time 26.9 SEC (24.5-34.5) Lactic Acid Level 1.7 mmol/L (0.4-2.0) Ammonia 32 umol/L (11-32) Plasma/Serum Blood Alcohol < 3.0 mg/dL (<10) Other Laboratory Tests 08/05/24 06:18 Brief Hx & Hospital Course: HPI: 58-year-old male with past medical history of CHF, hypertension, diabetes, tobacco abuse, substance abuse (meth) and COPD with home oxygen use, who came in due to shortness of breath. Patient states has had shortness of breath for years, but it worsened over the last 2 days prompting him to come to the hospital. Patient appears to have sever sleep apnea. BiPAP orders for while sleeping in place, patient tolerates it well. summary: work up shows CT with RLL pneumonia, gastroenterirs. CThead w/o acute mastoiditis. CXR with pulmonary vascular congestion. ABG with hypoxia and hypercapnia. labs show leukocytosis, and neutrophilia. vitals tachycardia, tachypniea, febrile 103F. uds with meth+. on exam he has rales, wheezing, systlic murmur, right TM inflammd. last echo 2022 with EF 35%, pitting edema+2 BL. admit for pneumonia, chf and copd. started on ctx/zpac upgraded later to ctx/doxy. bumex bid po and iv, duonebs q4h wa and 1x solumedrol, denied bipap, lovenox and protonix iv for ppx. he improves and weaned off oxygen to RA. patient stable to continue po treatment outpatient. VS stable and ready for discharge with plan below. diagnosis: acute hypoxic hypercarbic respiratory failure acute pneumona, gram-/gram+ likely acute on chronic diastolic and systolic CHF exacerbation COPD exacerbation possible Right Otitis media leukocytosis neutrophilia substance abuse, methamphetamine discharge plan: - continue doxycycline 100mg 2x/day for x10 days - take bumex 1mg 3x/day for x5 days, then back to 2x/day. - continue home inhalers - follow-up with PCP in 1 week. will need check BMP Cr. determine course of ear pain and if ENT needed - avoid any illicit drugs and/or tobacco. - continue other home medications. Condition at Discharge: Guarded Final Diagnosis/Problems List acute hypoxic hypercarbic respiratory failure acute pneumona, gram-/gram+ likely acute on chronic diastolic and systolic CHF exacerbation COPD exacerbation possible Right Otitis media leukocytosis neutrophilia substance abuse, methamphetamine Discharge Disposition: Home Discharge Instruct/Medications Diet: Cardiac 2g Na,low cholest Activity: No Restrictions, As Tolerated Follow Up/Referral: pcp Medications: below Discharge Statement: "Patient was advised to return to the ER or call 911 if any headaches, dizziness, shortness of breath, chest pain, abdominal pain, bleeding, fevers, or worsening of medical condition. Patient was counseled about treatment plan, medications, possible side effects, patientverbalized understanding. All questions were answered to the best of my ability. This discharge took greater then 30 minutes in planning, reviewing documentation, counseling the patient, and discussing with other team members." Date of Service: Aug 05, 2024 Billing Provider: CONOR CHAO MD Common Visit Codes: [id number] DISCH DAY >30min CONOR CHAO MD Aug 05, 2024 15:09
[2024-08-05] MEDS ORDERED: InsuLIN REG 1unit/0.01ml Soln (100units/ml) SC SCH (22:00)
== END 2024-08-05 15:25 | disposition home or self-care (01) | DRG 871 ==
LOC: ER 19:38 → EDBD 19:38 → TELE 08-01 08:54 → TELE-WESTW 08-01 22:05 → OVERFLOW 08-02 15:55 → WEST WING 08-02 16:00 → OVERFLOW 08-03 13:37 → TELE-WESTW 08-03 13:44
PROVIDERS: ADMIT Student in an Organized Health Care Education/Training Program; ATTEND Student in an Organized Health Care Education/Training Program
PROC: 5A09357 Assistance with Respiratory Ventilation, Less than 24 Consecutive Hours, Continuous Positive Airway Pressure (ICD-10-PCS; principal; 2024-07-31)
PROC: 5A09357 Assistance with Respiratory Ventilation, Less than 24 Consecutive Hours, Continuous Positive Airway Pressure (ICD-10-PCS; 2024-08-01)
PROC: 5A09357 Assistance with Respiratory Ventilation, Less than 24 Consecutive Hours, Continuous Positive Airway Pressure (ICD-10-PCS; 2024-08-02)
DX: A41.9 Sepsis, unspecified organism (principal); I50.43 Acute on chronic combined systolic (congestive) and diastolic (congestive) heart failure; J15.69 Pneumonia due to other Gram-negative bacteria; J96.02 Acute respiratory failure with hypercapnia; J96.01 Acute respiratory failure with hypoxia; J44.1 Chronic obstructive pulmonary disease with (acute) exacerbation; J44.0 Chronic obstructive pulmonary disease with (acute) lower respiratory infection; E11.65 Type 2 diabetes mellitus with hyperglycemia; F17.210 Nicotine dependence, cigarettes, uncomplicated; I11.0 Hypertensive heart disease with heart failure; G47.30 Sleep apnea, unspecified; F15.10 Other stimulant abuse, uncomplicated; H66.91 Otitis media, unspecified, right ear; K74.60 Unspecified cirrhosis of liver; Z88.5 Allergy status to narcotic agent; Z79.4 Long term (current) use of insulin; Z79.899 Other long term (current) drug therapy
CPT/HCPCS: 36415; 36600; 70450; 71045; 74176; 80053; 80307; 80320; 82140; 82805; 82962; 83036; 83605; 85025; 85610; 85730; 87040; 87081; 87426; 87804; 93005; 94640; 94660; 96365; 99291; G0378; J1815; J1885

== ENCOUNTER 2025-02-20 02:41 | Inpatient (IN) | payer MEDICARE, OTHER ==
[2025-02-20] VITALS (11 sets, daily range): BP systolic 125–128; BP diastolic 74–101; PULSE 86–117; RESP 18–21; TEMP 97.8–98.1; O2SAT 93–97
[~2025-02-20] VITALS: Ht 172.7 cm; Wt 132.0 kg
[~2025-02-20 02:41] MED LIST changes: -ATOR20TA50 PO; +BUME1TAB3 PO; +CARV12.544 PO; +DOXY1CAP58 PO; -FURO40TA4 PO; -LORA-622 PO; +LOSA-535 PO; -QUET1TAB11 PO
--- NOTE | 2025-02-20 03:33 | ED.PDOC ---
History of Present Illness HPI Comments 59 y/o obese M presents with c/c abdominal distension and shortness of breath. Patient endorses on progressively worsening symptoms for over the past 2x weeks following unprovoked and atraumatic onset. Denial of any chest pain, abdominal pain, nausea, vomiting, or further associated symptoms. Chief Complaint: Shortness of Breath Time Seen by MD: 03:15 Reviewed Notes: Nurses Notes, Medications, Allergies Allergies: Coded Allergies: Gabapentin (Verified Allergy, Severe, 04/07/22) Hydrocodone (Verified Allergy, Severe, 06/13/22) Pt states he can take Floyd no problem. It's only the brand name vicodin, also no problem with tylenol. Home Meds Active Scripts Doxycycline (Monohydrate) (Doxycycline) 100 Mg Cap, 100 MG PO BID for 10 Days, #20 CAP 0 Refills Prov:CONOR CHAO MD 08/05/24 Reported Medications Carvedilol (Carvedilol) 12.5 Mg Tab, 12.5 MG PO BID, TAB 08/01/24 Bumetanide (Bumetanide) 1 Mg Tab, 1 MG PO BID, MG 08/01/24 Losartan Potassium (Losartan Potassium) 100 Mg Tab, 100 MG PO DAILY for 30 Days, MG 08/01/24 Clonidine Hydrochloride (Clonidine Hcl) 0.1 Mg Tab, 0.1 MG PO Q6HR PRN for SBP>160 or DBP>105 06/13/22 Potassium Chloride (Potassium Chloride ER) 20 Meq Tab, 20 MEQ PO DAILY for supplement, TAB 06/13/22 Lisinopril & Hydrochlorothiazi (Zestoretic 20-12.5 mg) 1 Tab Tab, 1 TAB PO DAILY for htn, TAB 06/13/22 Amlodipine Besylate (Amlodipine Besylate) 5 Mg Tab, 5 MG PO DAILY for htn 06/13/22 Montelukast Sodium (MONTELUKAST SODIUM) 10 Mg Tab, 1 TAB PO DAILY for mild asthma 06/13/22 Metoprolol Tartrate (Metoprolol Tartrate) 100 Mg Tab, 100 MG PO BID for htn 06/13/22 Metformin Hydrochloride (Metformin Hcl) 500 Mg Tab, 500 MG PO IBID for diabetes 06/13/22 Information Source: Patient Mode of Arrival: Ambulatory Past Medical History PAST MEDICAL HISTORY: CHF, COPD, DM, HTN, Liver Family History Family History: Reviewed,noncontributory to illness Social History Smoker: Cigarettes, Less Than 1 Pack/Day Alcohol: Heavy Drugs: Marijuana Lives In: Home All Other Systems: Reviewed and Negative (Comprehensive systems review obtained and negative except for what is stated in the HPI.) Physical Exam General Appearance: No Apparent Distress, Obese HEENT: Normal ENT Inspection, Pharynx Normal, TMs Normal Neck: Full Range of Motion, Non-Tender, Normal, Normal Inspection Respiratory: Chest Non-Tender, Lungs Clear, No Accessory Muscle Use, No Respiratory Distress, Normal Breath Sounds Cardiovascular: No Edema, No JVD, No Murmur, No Gallop, Normal Peripheral Pulses, Regular Rate/Rhythm Breast Exam: Deferred Gastrointestinal: No Organomegaly, Non Tender, No Pulsatile Mass, Normal Bowel Sounds, Soft Genitalia: Deferred Pelvic: Deferred Rectal: Deferred Extremities: No calf tenderness, Normal capillary refill, Normal inspection, Normal range of motion, Non-tender, No pedal edema Musculoskeletal : Apperance: Normal Neurologic: Alert, 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 Was a procedure done?: No Differential Dx Considerations may include: Acute CHF/COPD exacerbation, URI, PNA, PE, IL, fluid retention, ascites, among others X-Ray, Labs, Meds, VS Vital Signs Date Time Temp Pulse Resp B/P (MAP) Pulse Ox O2 Delivery O2 Flow Rate FiO2 02/20/25 02:43 99.0 77 20 116/66 96 99.0 Lab Test 02/20/25 03:18 Range/Units White Blood Count 8.6 4.4-10.8 10^3/uL Red Blood Count 4.90 4.5-5.90 10^6/uL Hemoglobin 14.6 13.5-17.5 g/dL Hematocrit 44.4 41.0-53.0 % Mean Corpuscular Volume 90.7 80.0-100.0 fL Mean Corpuscular Hemoglobin 29.8 28.0-32.0 pg Mean Corpuscular Hemoglobin Concent 32.8 32.0-36.0 g/dL Red Cell Distribution Width 16.0 H 11.8-14.3 % Platelet Count 268 140-450 10^3/uL Mean Platelet Volume 7.8 6.9-10.8 fL Neutrophils (%) (Auto) 73.1 37.0-80.0 % Lymphocytes (%) (Auto) 12.5 10.0-50.0 % Monocytes (%) (Auto) 11.5 0.0-12.0 % Eosinophils (%) (Auto) 1.9 0.0-7.0 % Basophils (%) (Auto) 1.0 0.0-2.0 % Neutrophils # (Auto) 6.3 1.6-8.6 10 ^3/uL Lymphocytes # (Auto) 1.1 0.4-5.4 10 ^3/uL Monocytes # (Auto) 1.0 0-1.3 10 ^3/uL Eosinophils # (Auto) 0.2 0-0.8 10 ^3/uL Basophils # (Auto) 0.1 0-0.2 10 ^3/uL Nucleated Red Blood Cells 0.0 % Sodium Level 140 136-145 mmol/L Potassium Level 4.2 3.5-5.1 mmol/L Chloride Level 100 98-107 mmol/L Carbon Dioxide Level 35 H 20-31 mmol/L Anion Gap 5 5-15 Blood Urea Nitrogen 21 9-23 mg/dL Creatinine 1.26 0.700-1.30 mg/dL Glomerular Filtration Rate Calc 65 >90 mL/min BUN/Creatinine Ratio 16.7 10.0-20.0 Serum Glucose 106 74-106 mg/dL Calcium Level 9.2 8.7-10.4 mg/dL Total Bilirubin 1.1 H 0.2-1.0 mg/dL Aspartate Amino Transferase (AST) 29 13-40 U/L Alanine Aminotransferase (ALT) 31 7-40 U/L Alkaline Phosphatase 132 H 46-116 U/L Troponin I High Sensitivity 23 </=54 ng/L B-Type Natriuretic Peptide 467.60 0-100 pg/mL Total Protein 6.5 5.7-8.2 g/dL Albumin 3.9 3.2-4.8 g/dL Time of 1ST Reevaluation: 03:45 Reevaluation 1ST: Unchanged Patient Education/Counseling: Diagnosis, Treatment Family Education/Counseling: Diagnosis, Treatment SEPSIS Sepsis Screen Date sepsis recognized/suspect: Feb 20, 2025 Time Sepsis recognized/suspect: 0248 Recent Procedure: No On Antibiotic Therapy: No Respiratory Rate >20: No Heart Rate >90: No Temp<36 C (96.8 F) or >38.3 C: No SBP <90 or MAP <65 mmHG: No New Acute Mental Status Change: No Is the patient on CPAP, BIPAP,: No Physician Orders Chest Portable (02/20/25 02:54) Electrocardigram (02/20/25 02:54) Troponin-I Hs (02/20/25 03:54) Troponin-I Hs (02/20/25 05:54) Vital Signs Date Time Temp Pulse Resp B/P (MAP) Pulse Ox O2 Delivery O2 Flow Rate FiO2 02/20/25 02:43 99.0 77 20 116/66 96 99.0 Laboratory Tests Test 02/20/25 03:18 White Blood Count 8.6 10^3/uL (4.4-10.8) Departure 1 Departure Time of Disposition: 04:12 Impression: Primary Impression: Diastolic heart failure Additional Impressions: Pulmonary hypertension Intermediate coronary syndrome Disposition: ADMITTED INPATIENT Admit to: Tele Condition: Guarded Comments 59-year-old male with a history of CHF and morbid obesity now with some shortness of breath. Lab results reviewed. Borderline renal insufficiency and BNP is elevated. I suspect diastolic congestive heart failure. I suspect pulmonary hypertension. Patient will need admission for supportive care and further workup. Critical Care Note Critical Care Time?: Yes (35 min-critical care time only) Critical care comment: Total critical care time: Approximately 36 minutes Due to a high probability of clinically significant, life threatening deterioration, the patient required my highest level of preparedness to intervene emergently and I personally spent this critical care time directly and personally managing the patient. This critical care time included obtaining a history; examining the patient; pulse oximetry; ordering and review of studies; arranging urgent treatment with development of a management plan; evaluation of patient's response to treatment; frequent reassessment; and, discussions with other providers. This critical care time was performed to assess and manage the high probability of imminent, life-threatening deterioration that could result in multi-organ failure. It was exclusive of separately billable procedures and treating other patients. Stability Stability form required: No Heart Score Heart Score: Heart Score Response (Comments) Value History Moderate Suspicious 1 EKG Normal 0 Age 45-64 1 Risk Factors >3 or Hx ASHD 2 Troponin N/A 0 Total 4 I personally scribed for CARLOS MEJIA MD ([email or web address]) on 02/20/25 at 03:33. Electronically submitted by Olegario Keen ([email or web address]). CARLOS MEJIA MD Feb 20, 2025 03:33
[2025-02-20 03:44] LABS: Hematocrit 44.4 % (41.0-53.0); Hemoglobin 14.6 g/dL (13.5-17.5); Mean Corpuscular Hemoglobin 29.8 pg (28.0-32.0); Mean Corpuscular Volume 90.7 fL (80.0-100.0); Nucleated Red Blood Cells % 0.0 %
--- NOTE | 2025-02-20 03:44 | DVH ---
CHEST RADIOGRAPH Indication: sob Technique: Single frontal view of the chest was obtained COMPARISON: XY CHEST PORTABLE on DOS: 08/02/24, XY CHEST PORTABLE on DOS: 07/31/24, EKG on DOS: 04/07/22 , EKG on DOS: 04/07/22, CXRP on DOS: 04/07/22 FINDINGS: Lines and Tubes: None Lungs: Mild diffuse increased prominence of the pulmonary vasculature. No evidence of focal consolid ation. Pleura: No effusion. No pneumothorax. Cardiomediastinal contours: Cardiomegaly. Bones: Unremarkable IMPRESSION: 1. Cardiomegaly and mild diffuse increased prominence of the pulmonary vasculature.
[2025-02-20 03:46] LABS: Alanine Aminotransferase 31 U/L (7-40); Albumin 3.9 g/dL (3.2-4.8); Anion Gap 5 (5-15); BUN/Creatinine Ratio 16.7 (10.0-20.0); Blood Urea Nitrogen 21 mg/dL (9-23); Calcium 9.2 mg/dL (8.7-10.4); Chloride 100 mmol/L (98-107); Glucose 106 mg/dL (74-106); Potassium 4.2 mmol/L (3.5-5.1); Sodium 140 mmol/L (136-145); Total Protein 6.5 g/dL (5.7-8.2)
[2025-02-20 03:47] LABS: Alkaline Phosphatase 132 U/L (46-116); Bilirubin, Total 1.1 mg/dL (0.2-1.0); Carbon Dioxide 35 mmol/L (20-31)
[2025-02-20] MEDS: FUROSEMIDE 40 MG/4 ML VIAL IV ONE (05:20)
[2025-02-20] MEDS ORDERED: GLIP5TAB21 PO (06:50)
[2025-02-20] MEDS ORDERED: MORPHINE SULFATE INJ 2 MG/ml SYRG IV PRN (11:30)
[2025-02-20] MEDS ORDERED: HYDROcodone-ACET 5/325MG TAB PO PRN (11:30)
[2025-02-20] MEDS ORDERED: ONDANSETRON HCL 4 MG/2 ML VIAL IV PRN (11:30)
[2025-02-20] MEDS ORDERED: NITROGLYCERIN 0.4 MG SL TAB SL PRN (11:30)
[2025-02-20] MEDS: LISINOPRIL 20 MG TAB PO SCH (11:45)
--- NOTE | 2025-02-20 12:25 | DVH ---
CLINICAL HISTORY: abd distention TECHNIQUE: Limited ultrasound exam of the abdomen was performed. COMPARISON: CT CT AB PEL WO CON-NO ORAL OR IV on DOS: 07/31/24 FINDINGS: There is trace ascites at the right upper quadrant. IMPRESSION: Trace ascites at the right upper quadrant.
--- NOTE | 2025-02-20 12:37 | DVHHP2 ---
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 Patient was given Lasix in the ER and has been urinating. Patient denies any chest pain, abdominal pain, nausea, vomiting or any other related symptoms. BNP 467. Abdominal ultrasound pending for possible ascites. Patient will be admitted to telemetry for further christine atment and management. Past Medical History CHF, copd (patient states he was never told he had COPD), DM, HTN, Liver Past Surgical History Denies Family History Denies Smoke: <1 pack per day (Times 15 years) ALCOHOL: none (History of drinking last drink approximately 6 years+ ago, states it was not heavy drinking) Lives: Alone Review of Systems Constitutional: No: Fever, Chills, Sweats, Weakness, Malaise, Other Eyes: No: Pain, Vision change, Conjunctivae inflammation, Eyelid inflammation, Other, Redness ENT: No: Ear pain, Ear discharge, Nose pain, Nose discharge, Nose congestion, Mouth pain, Mouth swelling, Throat pain, Throat swelling, Other Respiratory: Shortness of breath, Wheezing; No: Cough, Dry, SOB with excertion, Hemoptysis, Pleuritic Pain, Sputum, Wheezing, Other Cardiovascular: No: Chest Pain, Palpitations, Orthopnea, Paroxysmal Noc. Dyspnea, Edema, Lt Headedness, Other Gastrointestinal: Other (Abdomen distention, skin taut); No: Nausea, Vomiting, Abdominal Pain, Diarrhea, Constipation, Melena, Hematochezia Genitourinary: No Dysuria, No Frequency, No Incontinence, No Hematuria, No Retention, No Other Musculoskeletal: No: other, neck pain, shoulder pain, arm pain, back pain, hand pain, leg pain, foot pain Skin: Other (Discoloration to bilateral lower extremities, bilateral lower extremities are edematous, nonpitting); No: Rash, Lesions, Jaundice, Bruising Neurological: No: Weakness, Numbness, Incoordination, Change in speech, Confusion, Seizures, Other Allergies: Coded Allergies: Gabapentin (Verified Allergy, Severe, 04/07/22) Hydrocodone (Verified Allergy, Severe, 06/13/22) Pt states he can take [place] no problem. It's only the brand name vicodin, also no problem with tylenol. Medications Current Medications Medications Dose Ordered Sig/Carlos Alberto Route Start Time Stop Time Status Last Admin Dose Admin Acetaminophen 325 mg Q4HP PRN PO 02/20/25 11:30 UNV Acetaminophen/ Hydrocodone Bitart 1 tab Q4HP PRN PO 02/20/25 11:30 UNV Ondansetron HCl 4 mg Q4HP PRN IV 02/20/25 11:30 UNV Enoxaparin Sodium 40 mg DAILY SC 02/20/25 11:30 UNV Nitroglycerin 0.4 mg Q5MINP PRN SL 02/20/25 11:30 UNV Morphine Sulfate 2 mg Q30M PRN IV 02/20/25 11:30 UNV Furosemide 40 mg BIDD IV 02/20/25 18:00 UNV Carvedilol 12.5 mg BID PO 02/20/25 22:00 UNV Clonidine HCl 0.1 mg Q6HR PRN PO 02/20/25 11:30 UNV Potassium Chloride 20 meq DAILY PO 02/21/25 10:00 UNV Amlodipine Besylate 5 mg DAILY PO 02/20/25 11:45 UNV Lisinopril 20 mg DAILY PO 02/20/25 11:45 UNV Montelukast Sodium 10 mg DAILY PO 02/20/25 11:45 UNV Albuterol 2.5 mg Q8HR NEB 02/20/25 14:00 UNV Exam Vital Signs Vital Signs Date Time Temp Pulse Resp B/P (MAP) Pulse Ox O2 Delivery O2 Flow Rate FiO2 02/20/25 12:02 98.0 98 18 125/101 94 3.0 32 98.0 02/20/25 08:40 Nasal Cannula* General Appearance: Alert, Oriented X3, Cooperative, No acute distress HEENT: Atraumatic, PERRLA, EOMI, Mucous membr. moist/pink Respiratory: Normal air movement, Other (Slight wheeze bilateral lower lungs) Cardiovascular: Regular rate, Normal S1, Normal S2, No murmurs Abdominal: Normal bowel sounds, Soft, No tenderness, No hepatospenomegaly, No masses, Other (Distended) Extremities: No clubbing, No cyanosis, Other (Bilateral Lower extremity edema) Skin: No rashes, No breakdown, No significant lesion Neuro: Normal gait, Normal speech, Normal tone, Sensation intact, Cranial nerv es 3-12 NL, Reflexes 2+, Other (Left leg chronic weakness) Psych/Mental Status: Mental status NL, Mood NL Labs/Xrays Reviewed with patient Labs Test 02/20/25 07:30 02/20/25 03:18 Range/Units Troponin I High Sensitivity 24 </=54 ng/L White Blood Count 8.6 4.4-10.8 10^3/uL Red Blood Count 4.90 4.5-5.90 10^6/uL Hemoglobin 14.6 13.5-17.5 g/dL Hematocrit 44.4 41.0-53.0 % Mean Corpuscular Volume 90.7 80.0-100.0 fL Mean Corpuscular Hemoglobin 29.8 28.0-32.0 pg Mean Corpuscular Hemoglobin Concent 32.8 32.0-36.0 g/dL Red Cell Distribution Width 16.0 H 11.8-14.3 % Platelet Count 268 140-450 10^3/uL Mean Platelet Volume 7.8 6.9-10.8 fL Neutrophils (%) (Auto) 73.1 37.0-80.0 % Lymphocytes (%) (Auto) 12.5 10.0-50.0 % Monocytes (%) (Auto) 11.5 0.0-12.0 % Eosinophils (%) (Auto) 1.9 0.0-7.0 % Basophils (%) (Auto) 1.0 0.0-2.0 % Neutrophils # (Auto) 6.3 1.6-8.6 10 ^3/uL Lymphocytes # (Auto) 1.1 0.4-5.4 10 ^3/uL Monocytes # (Auto) 1.0 0-1.3 10 ^3/uL Eosinophils # (Auto) 0.2 0-0.8 10 ^3/uL Basophils # (Auto) 0.1 0-0.2 10 ^3/uL Nucleated Red Blood Cells 0.0 % Sodium Level 140 136-145 mmol/L Potassium Level 4.2 3.5-5.1 mmol/L Chloride Level 100 98-107 mmol/L Carbon Dioxide Level 35 H 20-31 mmol/L Anion Gap 5 5-15 Blood Urea Nitrogen 21 9-23 mg/dL Creatinine 1.26 0.700-1.30 mg/dL Glomerular Filtration Rate Calc 65 >90 mL/min BUN/Creatinine Ratio 16.7 10.0-20.0 Serum Glucose 106 74-106 mg/dL Calcium Level 9.2 8.7-10.4 mg/dL Total Bilirubin 1.1 H 0.2-1.0 mg/dL Aspartate Amino Transferase (AST) 29 13-40 U/L Alanine Aminotransferase (ALT) 31 7-40 U/L Alkaline Phosphatase 132 H 46-116 U/L B-Type Natriuretic Peptide 467.60 0-100 pg/mL Total Protein 6.5 5.7-8.2 g/dL Albumin 3.9 3.2-4.8 g/dL SEPSIS Sepsis Screen Date sepsis recognized/suspect: Feb 20, 2025 Time Sepsis recognized/suspect: 629 Recent Procedure: No On Antibiotic Therapy: No Respiratory Rate >20: No Heart Rate >90: No Temp<36 C (96.8 F) or >38.3 C: No SBP <90 or MAP <65 mmHG: No New Acute Mental Status Change: No Is the patient on CPAP, BIPAP,: No Physician Orders Admit (02/20/25 11:19) Allergies (02/20/25 11:19) Code Status (02/20/25 11:19) Acetaminophen Tablet (Tylenol Tablet) (02/20/25 11:30) Hydrocodone-Acet 5/325mg Tab ([place] 5/32 (02/20/25 11:30) Ondansetron Hcl (Zofran) (02/20/25 11:30) Fall Risk Precautions In Place QSHIFT (02/20/25 11:19) Complete Blood Count (02/21/25 04:00) Comprehensive Metabolic Panel (02/21/25 04:00) Cardiac Diet-2gna,Lofat,Lochol (02/20/25 Lunch) Condition: Serious (02/20/25 11:19) Enoxaparin Sodium (Lovenox) (02/20/25 11:30) Nitroglycerin Sublingual (Ntrostat Subli (02/20/25 11:30) Morphine Sulfate Injection (02/20/25 11:30) Stat Ekg For Chest Pain (02/20/25 11:19) Notify Of Changes From Base (02/20/25 11:19) Locomotive Engineer Diesel For 24 Hours (02/20/25 11:19) Emergency Dysrhythmia Protocol (02/20/25 11:19) Rhythm Strips Once Every Shift (02/20/25 11:19) Oxygen By Nasal Cannula (02/20/25 11:19) Furosemide Injection (Lasix Injection) (02/20/25 18:00) Carvedilol Tablet (Coreg Tablet) (02/20/25 22:00) Clonidine Hcl Tablet (Catapres Tablet) (02/20/25 11:30) Potassium Er Tablet (Klor-Con Tablet) (02/21/25 10:00) Abdomen Complete Sonogram (02/20/25 11:31) Amlodipine Tablet (Norvasc Tablet) (02/20/25 11:45) Lisinopril Tablet (Zestril Tablet) (02/20/25 11:45) Montelukast Tablet (Singulair Tablet) (02/20/25 11:45) * Cardiology Consult (02/20/25 11:36) Albuterol Medneb (Ventolin Medneb) (02/20/25 14:00) Vital Signs Date Time Temp Pulse Resp B/P (MAP) Pulse Ox O2 Delivery O2 Flow Rate FiO2 02/20/25 12:02 98.0 98 18 125/101 94 3.0 32 98.0 02/20/25 08:49 94 02/20/25 08:40 Nasal Cannula* 3 32 02/20/25 08:00 98.0 95 12 125/101 (109) 94 98.0 02/20/25 06:30 96 21 95 Nasal Cannula* 3 32 02/20/25 06:30 96 21 112/81 (91) 94 02/20/25 05:53 98.1 99 20 128/101 (110) 95 98.1 02/20/25 05:30 99 18 95 Nasal Cannula* 2 28 02/20/25 05:20 128/101 Laboratory Tests Test 02/20/25 03:18 White Blood Count 8.6 10^3/uL (4.4-10.8) Medications Medications Dose Ordered Sig/Carlos Alberto Route Start Time Stop Time Status Last Admin Dose Admin Aspirin 162 mg ONCE ONCE PO 02/20/25 04:15 02/20/25 04:16 DC 02/20/25 05:20 162 MG Furosemide 40 mg ONCE ONCE IV 02/20/25 04:15 02/20/25 04:16 DC 02/20/25 05:20 40 MG Assessment/Plan Assessment/Plan CHF exacerbation Admit to telemetry Consult cardiology Lasix b.i.d. Resume home medications Last echo that we have on file was noted in 2021 EF at that time was less than 35% Acute hypoxic respiratory failure Supplemental oxygen p.r.n. to keep SpO2 greater than 92% Albuterol p.r.n. shortness of breath/wheezing Ascites/abdominal distention Abdominal ultrasound If abdominal ultrasound positive for ascites patient may need thoracentesis Diabetes mellitus type 2- per patient borderline Last hemoglobin A1c to was 8.5 Insulin sliding scale, mild Accu-Cheks a.c. HS Diabetic education recommended Chronic hypertension Continue home medications Nicotine dependence Discussed smoking cessation with patient for at least 10 minutes Patient declined nicotine patches PPX/diet Cardiac diet Lovenox No indication for GI prophylaxis Plan discussed with: Patient My Orders Orders - BLU MARQUEZ Procedure Category Date Status Time Admit ADMIT 02/20/25 Transmitted 11:19 Allergies LUIS 02/20/25 In Process 11:19 Code Status CODE 02/20/25 Transmitted 11:19 Acetaminophen Tablet PHA 02/20/25 Logged (Tylenol Tablet) 11:30 Hydrocodone-Acet PHA 02/20/25 Logged 5/325mg Tab ([place] 11:30 Ondansetron Hcl PHA 02/20/25 Logged (Zofran) 11:30 Fall Risk Precautions LUIS 02/20/[address] 11:19 Complete Blood Count LAB 02/21/25 Verified 04:00 Comprehensive LAB 02/21/25 Verified Metabolic Panel 04:00 Cardiac DIET 02/20/25 Transmitted Diet-2gna,Lofat,Lochol Lunch Condition: Serious LUIS 02/20/25 In Process 11:19 Enoxaparin Sodium PHA 02/20/25 Logged (Lovenox) 11:30 Nitroglycerin PHA 02/20/25 Logged Sublingual (Ntrostat 11:30 Morphine Sulfate PHA 02/20/25 Logged Injection 11:30 Stat Ekg For Chest [facility] 02/20/25 In Process Pain 11:19 Notify Md Of Changes [facility] 02/20/25 In Process From Base 11:19 Locomotive Engineer Diesel For [facility] 02/20/25 In Process 24 Hours 11:19 Emergency Dysrhythmia [facility] 02/20/25 In Process Protocol 11:19 Rhythm Strips Once [facility] 02/20/25 In Process Every Shift 11:19 Oxygen By Nasal RT 02/20/25 Transmitted Cannula 11:19 Furosemide Injection PHA 02/20/25 Logged (Lasix Injection) 18:00 Carvedilol Tablet PHA 02/20/25 Logged (Coreg Tablet) 22:00 Clonidine Hcl Tablet PHA 02/20/25 Logged (Catapres Tablet) 11:30 Potassium Er Tablet PHA 02/21/25 Logged (Klor-Con Tablet) 10:00 Abdomen Complete US 02/20/25 Taken Sonogram 11:31 Amlodipine Tablet PHA 02/20/25 Logged (Norvasc Tablet) 11:45 Lisinopril Tablet PHA 02/20/25 Logged (Zestril Tablet) 11:45 Montelukast Tablet PHA 02/20/25 Logged (Singulair Tablet) 11:45 * Cardiology Consult CONS 02/20/25 Transmitted 11:36 Albuterol Medneb PHA 02/20/25 Logged (Ventolin Medneb) 14:00 Date of Service: Feb 20, 2025 Billing Provider: BLU MARQUEZ Common Visit Codes: [id number] INP/OBS CARE (HIGH) Secondary Visit Codes: 08878-FQPFX CHNG SMOKING 3-10m BLU MARQUEZ Feb 20, 2025 12:37
[2025-02-20] MEDS ORDERED: DEXTROSE (50%) 50ML SYRG IV PRN (12:45)
[2025-02-20] MEDS: ALBUTEROL SULF 2.5 MG/0.5ML(0.5%) NEB SOLN NEB SCH (13:57)
[2025-02-20] MEDS: MONTELUKAST SODIUM 10 MG TAB PO SCH (14:56)
[2025-02-20] MEDS: ENOXAPARIN SOD 40 MG/0.4 ML SYRINGE SC SCH (14:56)
--- NOTE | 2025-02-20 16:33 | DVHINCON2 ---
Date Seen: Feb 20, 2025 Referring Physician DYLON Shrestha Reason for Consultation CHF History of Present Illness This is a 59-year-old man who presented to the emergency room with a chief complaint of shortness of breath for two weeks. Patient complains of progressive shortness of breath associated with PND, BAINS, orthopnea, and increased abdominal girth. There was no twelve-lead electrocardiogram found on hard chart neither in cardio client server programmer. Serial troponin levels are negative. Follows up in the outpatient setting with an unknown primary vehicle glass technician. Significant medical history includes nonobstructive/drug-induced cardiomyopathy, HFrEF, hypertension, COPD, diabetes mellitus, recent history of methamphetamine abuse, current tobacco use including 11 pack-years, morbid obesity, and history of noncompliance. Past Medical History Past medical history reviewed. No other significant than mentioned above. Past Surgical History Past surgical history reviewed. No other significant than mentioned above. Family History: Diabetes mellitus G8 MOTHER, Onset:Unknown FH: CHF (congestive heart failure) G8 MOTHER, Onset:Unknown FH: lung cancer G8 SISTER FHx: cancer of ovary G8 MOTHER, Onset:Unknown FHx: cancer of ovary G8 MOTHER, Onset:Unknown Hypertension G8 MOTHER, Onset:Unknown G8 FATHER, Onset:Unknown Family History Family history reviewed. Social History Admits to recent history of methamphetamine abuse, currently denies. Admits to current tobacco use including 11 pack-years. Denies the use of tobacco. Allergies: Coded Allergies: Gabapentin (Verified Allergy, Severe, 04/07/22) Hydrocodone (Verified Allergy, Severe, 06/13/22) Pt states he can take [place] no problem. It's only the brand name vicodin, also no problem with tylenol. Home Meds Active Scripts Doxycycline (Monohydrate) (Doxycycline) 100 Mg Cap, 100 MG PO BID for 10 Days, #20 CAP 0 Refills Prov:CONOR CHAO MD 08/05/24 Reported Medications Glipizide (Glipizide) 5 Mg Tab, 5 MG PO BID for 30 Days, MG 02/20/25 Carvedilol (Carvedilol) 12.5 Mg Tab, 12.5 MG PO BID, TAB 08/01/24 Bumetanide (Bumetanide) 1 Mg Tab, 1 MG PO BID, MG 08/01/24 Losartan Potassium (Losartan Potassium) 100 Mg Tab, 100 MG PO DAILY for 30 Days, MG 08/01/24 Clonidine Hydrochloride (Clonidine Hcl) 0.1 Mg Tab, 0.1 MG PO Q6HR PRN for SBP>160 or DBP>105 06/13/22 Potassium Chloride (Potassium Chloride ER) 20 Meq Tab, 20 MEQ PO DAILY for supplement, TAB 06/13/22 Lisinopril & Hydrochlorothiazi (Zestoretic 20-12.5 mg) 1 Tab Tab, 1 TAB PO DAILY for htn, TAB 06/13/22 Amlodipine Besylate (Amlodipine Besylate) 5 Mg Tab, 5 MG PO DAILY for htn 06/13/22 Montelukast Sodium (MONTELUKAST SODIUM) 10 Mg Tab, 1 TAB PO DAILY for mild asthma 06/13/22 Metoprolol Tartrate (Metoprolol Tartrate) 100 Mg Tab, 100 MG PO BID for htn 06/13/22 Metformin Hydrochloride (Metformin Hcl) 500 Mg Tab, 500 MG PO IBID for diabetes 06/13/22 Home Meds Home medications reviewed. Current Medications Current Medications Medications (Trade) Dose Ordered Sig/Carlos Alberto Route PRN Reason Start Time Stop Time Status Last Admin Acetaminophen (Tylenol Tablet) 325 mg Q4HP PRN PO MILD PAIN (1-3 PAIN SCALE) 02/20/25 11:30 Acetaminophen/ Hydrocodone Bitart ([place] 5/325MG Tab) 1 tab Q4HP PRN PO MODERATE PAIN (4-6 PAIN SCALE) 02/20/25 11:30 Ondansetron HCl (Zofran) 4 mg Q4HP PRN IV NAUSEA / VOMITING 02/20/25 11:30 Enoxaparin Sodium (Lovenox) 40 mg DAILY SC 02/20/25 11:30 02/20/25 14:56 Nitroglycerin (Ntrostat Sublingual) 0.4 mg Q5MINP PRN SL FOR CHEST PAIN 02/20/25 11:30 Morphine Sulfate 2 mg Q30M PRN IV FOR CHEST PAIN 02/20/25 11:30 Furosemide (Lasix Injection) 40 mg BIDD IV 02/20/25 18:00 Amlodipine Besylate (Norvasc Tablet) 5 mg DAILY PO 02/21/25 10:00 02/20/25 11:36 DC Carvedilol (Coreg Tablet) 12.5 mg BID PO 02/20/25 22:00 Clonidine HCl (Catapres Tablet) 0.1 mg Q6HR PRN PO SBP>160 or DBP>105 02/20/25 11:30 Montelukast Sodium (Singulair Tablet) 10 mg DAILY PO 02/21/25 10:00 02/20/25 11:36 DC Lisinopril (Zestril Tablet) 20 mg DAILY PO 02/21/25 10:00 02/20/25 11:36 DC Potassium Chloride (Klor-Con Tablet) 20 meq DAILY PO 02/21/25 10:00 Amlodipine Besylate (Norvasc Tablet) 5 mg DAILY PO 02/20/25 11:45 02/20/25 14:56 Lisinopril (Zestril Tablet) 20 mg DAILY PO 02/20/25 11:45 02/20/25 11:45 Montelukast Sodium (Singulair Tablet) 10 mg DAILY PO 02/20/25 11:45 02/20/25 14:56 Albuterol (Ventolin Medneb) 2.5 mg Q8HR NEB 02/20/25 14:00 02/20/25 13:57 Diagnostic Test (Pha) (Accu-Chek Comfort Curve T) 1 strip ACHS 02/20/25 17:00 Insulin Human Regular (InsuLIN R) ACHS SC 02/20/25 17:00 Dextrose 50 ml UD PRN IV Blood Sugar LESS THAN 60 02/20/25 12:45 Fluticasone Propionate (Flonase [place]) 50 mcg Q12HR EACHNOSTRI 02/20/25 22:00 Review of Systems Constitutional: No symptom reported Ears, Nose, & Throat: No symptom reported Eyes: No symptom reported Neurological: No symptoms reported Pulmonary/Respiratory: SOB Cardiovascular: No symptom reported Gastrointestinal: No symptom reported Genitourinary: No symptom reported Musculoskeletal: No symptom reported Skin: No symptom reported Psychiatric: No symptom reported Endocrine: No symptom reported Hemotologic/Lymphatic: No symptom reported Vital Signs Vital Signs Date Time Temp Pulse Resp B/P (MAP) Pulse Ox O2 Delivery O2 Flow Rate FiO2 02/20/25 14:56 126/87 02/20/25 13:57 96 Nasal Cannula* 2 28 02/20/25 13:57 86 19 02/20/25 12:30 98.1 98.1 Physical Exam General Appearance: Cooperative. Well developed. Morbidly obese. Moderate acute respiratory distress Head Exam: Normal inspection Neck Exam: Normal inspection. Non-tender. Normal alignment Pulmonary/Respiratory: Chest non-tender. Crackles to bilateral breath sounds. Tachypneic Cardiovascular/Chest: Irregularly irregular rate and rhythm. No murmurs. No JVD. Peripheral Pulses: 2+ Radial (R). 2+ Radial (L). 2+ Pedal (R). 2+ Pedal (L) Abdominal Exam: Normal bowel sounds. Soft. Nontender. No hepatospenomegaly. No masses Ankle Exam: Positive ankle edema Lower extremities: Positive lower extremity edema Neuro/Mental Status: A&O x4. Coherent Thoughts/Psych: Normal thought pattern. Appropriate mood and affect. Good judgement and insight Appearance: Moderate respiratory acute distress Skin Exam: Normal inspection. Normal color. Warm. Dry Labs/Diagnostic Data Labs Test 02/20/25 07:30 02/20/25 03:18 Range/Units Troponin I High Sensitivity 24 </=54 ng/L White Blood Count 8.6 4.4-10.8 10^3/uL Red Blood Count 4.90 4.5-5.90 10^6/uL Hemoglobin 14.6 13.5-17.5 g/dL Hematocrit 44.4 41.0-53.0 % Mean Corpuscular Volume 90.7 80.0-100.0 fL Mean Corpuscular Hemoglobin 29.8 28.0-32.0 pg Mean Corpuscular Hemoglobin Concent 32.8 32.0-36.0 g/dL Red Cell Distribution Width 16.0 H 11.8-14.3 % Platelet Count 268 140-450 10^3/uL Mean Platelet Volume 7.8 6.9-10.8 fL Neutrophils (%) (Auto) 73.1 37.0-80.0 % Lymphocytes (%) (Auto) 12.5 10.0-50.0 % Monocytes (%) (Auto) 11.5 0.0-12.0 % Eosinophils (%) (Auto) 1.9 0.0-7.0 % Basophils (%) (Auto) 1.0 0.0-2.0 % Neutrophils # (Auto) 6.3 1.6-8.6 10 ^3/uL Lymphocytes # (Auto) 1.1 0.4-5.4 10 ^3/uL Monocytes # (Auto) 1.0 0-1.3 10 ^3/uL Eosinophils # (Auto) 0.2 0-0.8 10 ^3/uL Basophils # (Auto) 0.1 0-0.2 10 ^3/uL Nucleated Red Blood Cells 0.0 % Sodium Level 140 136-145 mmol/L Potassium Level 4.2 3.5-5.1 mmol/L Chloride Level 100 98-107 mmol/L Carbon Dioxide Level 35 H 20-31 mmol/L Anion Gap 5 5-15 Blood Urea Nitrogen 21 9-23 mg/dL Creatinine 1.26 0.700-1.30 mg/dL Glomerular Filtration Rate Calc 65 >90 mL/min BUN/Creatinine Ratio 16.7 10.0-20.0 Serum Glucose 106 74-106 mg/dL Calcium Level 9.2 8.7-10.4 mg/dL Total Bilirubin 1.1 H 0.2-1.0 mg/dL Aspartate Amino Transferase (AST) 29 13-40 U/L Alanine Aminotransferase (ALT) 31 7-40 U/L Alkaline Phosphatase 132 H 46-116 U/L B-Type Natriuretic Peptide 467.60 0-100 pg/mL Total Protein 6.5 5.7-8.2 g/dL Albumin 3.9 3.2-4.8 g/dL Assessment Acute on chronic decompensated HFrEF, NYHA Class IV Nonischemic/drug-induced cardiomyopathy [id number] diabetes mellitus Hypertension Rule out acute methamphetamine intoxication Nicotine dependence Medical non-compliance Morbid obesity Plan/Recommendation (Dr. Conner) We will continue further cardiac evaluation with a transthoracic echocardiogram to evaluate cardiac function. The patient presents with a nonischemic cardiomyopathy underwent a cardiac catheterization without catheter based intervention given normal coronaries on . Initiate GDMT for CHF and up-titrate as tolerated. Initiate preload and afterload reduction, strict I&Os, daily weight, and fluid restrictions. Obtain a twelve-lead electrocardiogram. Complete UDS given recent history of drug abuse. Initiate nicotine patch. Further orders per clinical course. Thank you for allowing us to participate in this patient's care. Please call if you have any questions or concerns. Critical care time: 40 min. This medical document was created using an electronic medical record system with voice recognition software and computerized dictation system. Although this document has been carefully reviewed, there might still be some phonetic and typographical errors. Occasional wrong-word or ``sound-alike substitutions may have occurred due to the inherent limitations of voice recognition software. These areas are purely typographical due to imperfections of the software programs and do not reflect any compromise in the patient's medical care. Please read the chart carefully and recognize, using context, where these substitutions have occurred. Plan discussed with: Patient, Other NYHA Physical activity limitations: Class4(Severe)discomfort (w any activit,symptoms at rest) Date of Service: Feb 20, 2025 Billing Provider: ALBANIA SANDOVAL Cardiology Common Codes: 59215-[id number] CARE 30-74 MIN ALBANIA SANDOVAL Feb 20, 2025 16:33
[2025-02-20] MEDS: ACCU-CHEK COMFORT CURVE STRIP VI SCH (17:10)
[2025-02-20] MEDS: InsuLIN REG 1unit/0.01ml Soln (100units/ml) SC SCH (17:11)
[2025-02-20] MEDS: FUROSEMIDE 40 MG/4 ML VIAL IV SCH (17:28)
[2025-02-20 19:17] LABS: Amphetamine Screen, Urine Pos (NEGATIVE); Barbiturate Scree,Urine Neg (NEGATIVE); Benzodiazephine Screen, Urine Neg (NEGATIVE); Cannabinoid Screen, Urine Neg (NEGATIVE); Cocaine Screen, Urine Neg (NEGATIVE); Opiate Scree,Urine Neg (NEGATIVE); Phencyclidine Screen, Urine Neg (NEGATIVE)
[2025-02-20 19:18] LABS: Urine Protein, UAD TRACE (Negative)
--- NOTE | 2025-02-20 19:24 | DVHSR ---
APPROVED REPORT EXAM: Two-dimensional and M-mode echocardiogram with Doppler and color Doppler. Blood Pressure: 126/87 mmHg INDICATION CHF RISK FACTORS Obesity: Height: 5'8", Weight: 240 DIMENSIONS LVDd4.4 (3.8-5.7cm)LA (2D)4.4 (1.9-4.0cm)Aortic Root3.7 (2.0-3.7cm) LVDs3.5 (2.5-4.0cm)LA (MM) (1.9-4.0cm)Aortic Cusp Exc1.9 (1.5-2.0cm) EF (%) 35.0 (55-70%)Rt. Atrium6.7 (1.9-4.0cm)Asc. Aorta cm IVSd1.3 (0.7-1.1cm)RV (D)5.8 (1.8-2.4cm) PWd1.3 (0.7-1.1cm) Mitral Valve MitralMitral Stenosis E wave1.01m/sMV Mean GR.mmHg A wave0.86m/sMV Peak GR.mmHg E/A ratio1.22D MVAcm2 DECEL [id number] 1/2 Timems Aortic Valve Aortic ValveAortic Stenosis V10.81m/Lilia Mean GR.3mmHg V21.00m/Lilia Peak GR.4mmHg LVOT Diameter2.1 (1.8-2.4cm)Doppler AVA2.80cm2 Pulmonic Valve V20.69m/s Tricuspid Valve TR Velocity3.41m/s [id number] Other Information Technically limited study due to body habitus, patient sitting up. Conclusion Technically good study. Undetermined rhythm. Chamber dimension evaluation shows an enlarged right ventricle. Left atrial enlargement with concent ryan LVH. Mild LV enlargement. Right atrial enlargement noted. Valves are normal. EF is diminished at 30% with predominant anterior hypokinesis. Interventricular septal doming consis tent with pulmonary hypertension and RV pressure overload. There is [id number] TR. Mild MR. Moderate pulmonic insufficiency. Pulmonary hypertension not ed. RVSP at 60-65 mmHg. Clinical correlation recommended. No pericardial effusion masses or vegetations.
[2025-02-20] MEDS: CARVEDILOL 12.5 MG TAB PO SCH (21:03)
[2025-02-20] MEDS ORDERED: CARVEDILOL 12.5 MG TAB PO SCH (22:00)
[2025-02-20] MEDS: FLUTICASONE PROP NASAL SPR 0.05 % (50MCG) 16GM EACHNOSTRI SCH (22:24)
[2025-02-21] VITALS (15 sets, daily range): BP systolic 107–150; BP diastolic 82–109; PULSE 52–121; RESP 15–22; TEMP 97.7–98.3; O2SAT 91–100
[2025-02-21] MEDS: ACETAMINOPHEN 325 MG TAB PO PRN (03:36)
[2025-02-21 05:43] LABS: Hematocrit 44.7 % (41.0-53.0); Hemoglobin 14.8 g/dL (13.5-17.5); Mean Corpuscular Hemoglobin 30.1 pg (28.0-32.0); Mean Corpuscular Volume 91.0 fL (80.0-100.0); Nucleated Red Blood Cells % 0.1 %
[2025-02-21 05:52] LABS: Alanine Aminotransferase 32 U/L (7-40); Albumin 4.2 g/dL (3.2-4.8); Anion Gap 6 (5-15); BUN/Creatinine Ratio 16.1 (10.0-20.0); Bilirubin, Total 1.2 mg/dL (0.2-1.0); Blood Urea Nitrogen 19 mg/dL (9-23); Calcium 9.1 mg/dL (8.7-10.4); Chloride 100 mmol/L (98-107); Glucose 102 mg/dL (74-106); Potassium 3.6 mmol/L (3.5-5.1); Sodium 140 mmol/L (136-145); Total Protein 7.0 g/dL (5.7-8.2)
[2025-02-21 05:57] LABS: Alkaline Phosphatase 138 U/L (46-116); Carbon Dioxide 34 mmol/L (20-31)
--- NOTE | 2025-02-21 06:22 | DVH ---
CHEST RADIOGRAPH Indication: CHF Technique: Single frontal view of the chest was obtained COMPARISON: XY CHEST PORTABLE on DOS: 02/20/25, XY CHEST PORTABLE on DOS: 08/02/24, XY CHEST PORTABLE on DOS: 07/31/24, EKG on DOS: 04/07/22, EKG on DOS: 04/07/22 FINDINGS: Lines and Tubes: None Lungs: Moderate diffuse increased prominence of the pulmonary vasculature without evidence of focal c onsolidation. Pleura: No effusion. No pneumothorax. Cardiomediastinal contours: Cardiomegaly. Bones: Unremarkable IMPRESSION: 1. Cardiomegaly and moderate diffuse increased prominence of the pulmonary vasculature.
--- NOTE | 2025-02-21 07:35 | ECG ---
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
--- NOTE | 2025-02-21 08:50 | DVHPN2 ---
Consult Progress Note Date Seen: Feb 21, 2025 Subjective Patient reports: Feels better Review of Systems: CVS:Normal, RESPIRATORY:Abnormal, NEURO:Normal Other Systems: C/o mild SOB, improving Objective vital signs Vital Sign Date Time Temp Pulse Resp B/P (MAP) Pulse Ox O2 Delivery O2 Flow Rate FiO2 02/21/25 07:55 108 15 98 Nasal Cannula* 4 36 02/21/25 07:30 97.9 129/85 (100) 97.9 Total Intake and Output 02/20/25 02/20/25 02/21/25 15:00 23:00 07:00 Intake Total 400 ml Output Total 100 ml 300 ml Balance -100 ml 100 ml medications Current Medications Medications Dose Ordered Sig/Carlos Alberto Route Start Time Stop Time Status Last Admin Dose Admin Acetaminophen 325 mg Q4HP PRN PO 02/20/25 11:30 02/21/25 03:36 325 MG Acetaminophen/ Hydrocodone Bitart 1 tab Q4HP PRN PO 02/20/25 11:30 Ondansetron HCl 4 mg Q4HP PRN IV 02/20/25 11:30 Enoxaparin Sodium 40 mg DAILY SC 02/20/25 11:30 02/20/25 14:56 40 MG Nitroglycerin 0.4 mg Q5MINP PRN SL 02/20/25 11:30 Morphine Sulfate 2 mg Q30M PRN IV 02/20/25 11:30 Furosemide 40 mg BIDD IV 02/20/25 18:00 02/21/25 05:22 40 MG Potassium Chloride 20 meq DAILY PO 02/21/25 10:00 Montelukast Sodium 10 mg DAILY PO 02/20/25 11:45 02/20/25 14:56 10 MG Albuterol 2.5 mg Q8HR NEB 02/20/25 14:00 02/21/25 06:59 2.5 MG Diagnostic Test (Pha) 1 strip ACHS 02/20/25 17:00 02/21/25 06:25 1 STRIP Insulin Human Regular ACHS SC 02/20/25 17:00 02/20/25 21:05 3 UNITS Dextrose 50 ml UD PRN IV 02/20/25 12:45 Fluticasone Propionate 50 mcg Q12HR EACHNOSTRI 02/20/25 22:00 02/20/25 22:24 50 MCG Carvedilol 6.25 mg BID PO 02/20/25 22:00 02/20/25 21:03 6.25 MG Lisinopril 10 mg DAILY PO 02/21/25 10:00 Empaglifozin 10 mg DAILY PO 02/21/25 10:00 Spironolactone 12.5 mg DAILY PO 02/21/25 10:00 Examination: GENERAL:Abnormal, LUNGS:Abnormal (Bilateral crackles), CVS:Normal (A-flutter, controlled rate), MSK:Abnormal (BLE/pedal edema ++), NEURO:Normal laboratory and microbiology Laboratory Tests 02/21/25 04:48 Test 02/21/25 04:48 Range/Units Serum Glucose 102 74-106 mg/dL Problem List/Assessment/Plan Problem List/Assessment/Plan Acute on chronic decompensated HFrEF, NYHA Class IV Nonischemic/drug-induced cardiomyopathy Pulmonary hypertension, severe, Group I Atrial flutter with controlled rate, Stage III, newly diagnosed [id number] diabetes mellitus Hypertension Acute methamphetamine intoxication Nicotine dependence Medical non-compliance Morbid obesity Plan/Recommendation (Dr. Conner) Transthoracic echocardiogram revealed LVEF 30% with anterior hypokinesis, RVSP 60-65 mmHg. The patient presents with a nonischemic cardiomyopathy underwent a cardiac catheterization without catheter based intervention given normal coronaries on . Continue GDMT for CHF and up-titrate as tolerated. Continue preload and afterload reduction, strict I&Os, daily weight, and fluid restrictions. Multiple twelve-lead electrocardiograms revealed an atrial flutter rhythm with a variable block, new onset. Initiate therapeutic Lovenox and transition to DOAC when appropriate ([id number] Score, 3 points. HAS-BLED Score 0 points). Continue nicotine patch. Strongly counseled on drug abuse and nicotine use cessation. Further orders per clinical course. Thank you for allowing us to participate in this patient's care. Please call if you have any questions or concerns. This medical document was created using an electronic medical record system with voice recognition software and computerized dictation system. Although this document has been carefully reviewed, there might still be some phonetic and typographical errors. Occasional wrong-word or ``sound-alike substitutions may have occurred due to the inherent limitations of voice recognition software. These areas are purely typographical due to imperfections of the software programs and do not reflect any compromise in the patient's medical care. Please read the chart carefully and recognize, using context, where these substitutions have occurred. Plan discussed with: Patient, Other Date of Service: Feb 21, 2025 Billing Provider: ALBANIA SANDOVAL Cardiology Common Codes: [id number] HOSP CARE(High ALBANIA SANDOVAL Feb 21, 2025 08:50
[2025-02-21] MEDS: POTASSIUM CHL 20 Meq TABLET PO ONE (09:20)
[2025-02-21] MEDS: MAGNESIUM SULFATE 1GM/100ML 100 ML IV ONE (09:20)
[2025-02-21] MEDS ORDERED: POTASSIUM CHL 20 Meq TABLET PO SCH (10:00)
[2025-02-21] MEDS ORDERED: MONTELUKAST SODIUM 10 MG TAB PO SCH (10:00)
[2025-02-21] MEDS ORDERED: LISINOPRIL 20 MG TAB PO SCH (10:00)
[2025-02-21] MEDS: ENOXAPARIN SOD 100 MG/1 ML SYRINGE SC SCH (11:29)
[2025-02-21] MEDS: LISINOPRIL 20 MG TAB PO SCH (11:30)
[2025-02-21] MEDS: EMPAGLIFLOZIN 10 MG TAB PO SCH (11:31)
[2025-02-21] MEDS: SPIRONOLACTONE 25 MG TAB PO SCH (11:31)
--- NOTE | 2025-02-21 12:53 | ECG ---
[facility] Test Date: 2025-02-20 Test Time: 20:00:06 Pat Name: IRMA BARRIENTOS Department: Room: 0276T Gender: M Human Service Coordinator: : 1965 Requested By: CARLOS MEJIA Order Number: [id number] Reading MD: Sixto Conner Measurements Intervals [place] Rate: 99 P: 237 [place]: 0 QRS: 81 QRSD: 90 T: 247 QT: 438 QTc: 562 Interpretive Statements Atrial flutter with variable AV block Low voltage QRS Cannot rule out Anterior infarct , age undetermined ST & T wave abnormality, consider inferior ischemia Prolonged QT Electronically Signed On 02-23-2025 14:31:31 PDT by Sixto Conner Please click the below link to view image of tracing.
--- NOTE | 2025-02-21 15:28 | DVHPN2 ---
Subjective Patient continues to report having shortness of breaths. Reviewed: Care Plan, H&P, Labs, Medications, Previous Orders Changes from previous H/P or p: No Changes General: Per HPI Eyes: No Pain, No Vision change, No Conjunctivae inflammation, No Eyelid inflammation, No Other, No Redness ENT: No Ear pain, No Ear discharge, No Nose pain, No Nose discharge, No Nose congestion, No Mouth pain, No Mouth swelling, No Throat pain, No Throat swelling, No Other Cardiovascular: No Chest Pain, No Palpitations, No Orthopnea, No Paroxysmal Noc. Dyspnea, No Edema, No Lt Headedness, No Other Respiratory: No Cough, No Dry; Shortness of breath; No SOB with excertion; W heezing; No Hemoptysis, No Pleuritic Pain, No Sputum, No Other Gastrointestinal: No Nausea, No Vomiting, No Abdominal Pain, No Diarrhea, No Constipation, No Melena, No Hematochezia; Other (Abdomen distention, skin taut) Genitourinary: No Dysuria, No Frequency, No Incontinence, No Hematuria, No Retention, No Other Musculoskeletal: No other, No neck pain, No shoulder pain, No arm pain, No back pain, No hand pain, No leg pain, No foot pain Skin: No Rash, No Lesions, No Jaundice, No Bruising; Other (Discoloration to bilateral lower extremities, bilateral lower extremities are edematous, nonpitting) Objective Vitals Vital Signs Date Time Temp Pulse Resp B/P (MAP) Pulse Ox O2 Delivery O2 Flow Rate FiO2 02/21/25 13:00 98.3 52 16 123/82 (96) 93 98.3 02/21/25 07:55 Nasal Cannula* 4 36 Intake/Output Intake and Output 02/21/25 07:00 Intake Total 400 ml Output Total 400 ml Balance 0 ml Intake Oral 400 ml Output Urine Total 400 ml General Appearance: Alert, Oriented X3, Cooperative, mild distress HEENT: Atraumatic, PERRLA Lungs: Clear to auscultation, Normal air movement Cardiovascular: Normal S1, Normal S2 Abdomen: Normal bowel sounds, Soft, No tenderness, No hepatospenomegaly Genitourinary: No Apparent Abnormalities Musculoskeletal: Normal sensory function, Normal motor function Extremities: No clubbing, No cyanosis, No edema, Normal pulses, No tenderness/swelling Neuro: Normal gait, Normal speech Skin: Dry, Intact Psych/Mental Status: Mental status NL, Mood NL Medications Current Medications Medications Dose Ordered Sig/Carlos Alberto Route Start Time Stop Time Status Last Admin Dose Admin Acetaminophen 325 mg Q4HP PRN PO 02/20/25 11:30 02/21/25 03:36 325 MG Acetaminophen/ Hydrocodone Bitart 1 tab Q4HP PRN PO 02/20/25 11:30 Ondansetron HCl 4 mg Q4HP PRN IV 02/20/25 11:30 Nitroglycerin 0.4 mg Q5MINP PRN SL 02/20/25 11:30 Morphine Sulfate 2 mg Q30M PRN IV 02/20/25 11:30 Furosemide 40 mg BIDD IV 02/20/25 18:00 02/21/25 05:22 40 MG Montelukast Sodium 10 mg DAILY PO 02/20/25 11:45 02/21/25 11:31 10 MG Albuterol 2.5 mg Q8HR NEB 02/20/25 14:00 02/21/25 06:59 2.5 MG Diagnostic Test (Pha) 1 strip ACHS 02/20/25 17:00 02/21/25 11:49 1 STRIP Insulin Human Regular ACHS SC 02/20/25 17:00 02/21/25 11:49 3 UNITS Dextrose 50 ml UD PRN IV 02/20/25 12:45 Fluticasone Propionate 50 mcg Q12HR EACHNOSTRI 02/20/25 22:00 02/21/25 11:28 50 MCG Carvedilol 6.25 mg BID PO 02/20/25 22:00 02/21/25 11:32 6.25 MG Lisinopril 10 mg DAILY PO 02/21/25 10:00 02/21/25 11:30 10 MG Empaglifozin 10 mg DAILY PO 02/21/25 10:00 02/21/25 11:31 10 MG Spironolactone 12.5 mg DAILY PO 02/21/25 10:00 02/21/25 11:31 12.5 MG Enoxaparin Sodium 110 mg Q12HR SC 02/21/25 10:00 02/21/25 11:29 110 MG Laboratory Results Laboratory Tests 02/21/25 04:48 Chemistry Test 02/21/25 04:48 Albumin 4.2 g/dL (3.2-4.8) Calcium Level 9.1 mg/dL (8.7-10.4) Total Protein 7.0 g/dL (5.7-8.2) Cardiac Markers Test 02/21/25 04:48 B-Type Natriuretic Peptide 339.14 pg/mL (0-100) LFT Test 02/21/25 04:48 Alanine Aminotransferase (ALT) 32 U/L (7-40) Alkaline Phosphatase 138 U/L (46-116) H Aspartate Amino Transferase (AST) 29 U/L (13-40) Total Bilirubin 1.2 mg/dL (0.2-1.0) H Urinalysis Test 02/20/25 04:10 Urine Color Yellow (Yellow) Urine Clarity Clear (Clear) Urine pH 6.0 (5.0-9.0) Urine Specific [place] 1.014 (1.001-1.035) Urine Protein Trace (Negative) H Urine Ketones Negative (Negative) Urine Blood Negative /uL (Negative) Urine Nitrite Negative (Negative) Urine Bilirubin Negative (Negative) Urine Urobilinogen Normal mg/dL (Negative) Urine Leukocyte Esterase Trace /uL (Negative) Urine RBC 2 /hpf (0 - 3) Urine Microscopic WBC 7 /HPF (0-3) H Urine Squamous Epithelial Cells Few /hpf (<5) Urine Calcium Oxalate Crystals Mod (None Seen) Urine Bacteria Few /hpf (None Seen) H Urine Hyaline Casts Few /lpf (0 - 2) Urine Mucus Few (None Seen) Urine Glucose Normal mg/dL (Normal) Labs and/or images reviewed: Labs reviewed by me, Image(s) reviewed by me Assessment/Plan Assessment/Plan Impression: -acute on chronic hypoxic respiratory failure -acute on chronic systolic and diastolic heart failure -obstructive sleep apnea -morbid obesity -amphetamine use -pulmonary hypertension -primary hypertension -diabetes mellitus Plan: -cardiology consultation: Recommendations reviewed. Continue guideline directed medical therapy -increase IV diuresis. Change from Lasix to Bumex b.i.d. -fluid restriction -regular insulin sliding scale -Lifestyle modification education: 10 minutes spent with the patient discussing the need to abstain from drug use -CPAP at night -bronchodilators as needed -repeat labs in a.m. Total time spent with patient discussing and formulating plan of care: 35 minutes. This medical document was created using an electronic medical record system with Dragon computerized dictation system. Although this document has been carefully reviewed, there may still be some phonetic and typographical errors. These areas are purely typographical due to imperfections of the software programs, and do not reflect any compromise in the patient's medical care. Plan discussed with: Patient, Spouse, Other (RN) My Orders Orders - KEYLA GASTELUM NP Procedure Category Date Status Time Bumetanide Injection PHA 02/21/25 Transmitted (Bumex Injection) 18:00 Date of Service: Feb 21, 2025 Billing Provider: KEYLA GASTELUM NP Common Visit Codes: [id number] INP/OBS CARE(HIGH) Secondary Visit Codes: [id number] CHNG SMOKING >10MIN, [id number]-[id number] CARE PLAN 30 MINUTES KEYLA GASTELUM NP Feb 21, 2025 15:28
[2025-02-21] MEDS: BUMETANIDE 2.5mg/10ml (0.25 mg/ml) INJ IV SCH (17:07)
[2025-02-21] MEDS: ENOXAPARIN SOD 120 MG/0.8 ML SYRINGE SC SCH (22:00)
[2025-02-22] VITALS (17 sets, daily range): BP systolic 119–157; BP diastolic 79–108; PULSE 56–122; RESP 17–23; TEMP 97.8–98.4; O2SAT 88–100
[2025-02-22] MEDS: LORazepam 0.5 MG TAB PO ONE (04:59)
[2025-02-22 07:39] LABS: Chloride 98 mmol/L (98-107); Potassium 3.8 mmol/L (3.5-5.1); Sodium 141 mmol/L (136-145)
[2025-02-22 07:40] LABS: Anion Gap 8 (5-15); Calcium 8.7 mg/dL (8.7-10.4)
[2025-02-22 07:46] LABS: BUN/Creatinine Ratio 16.8 (10.0-20.0); Blood Urea Nitrogen 20 mg/dL (9-23); Magnesium 2.1 mg/dL (1.6-2.6)
[2025-02-22 07:51] LABS: Carbon Dioxide 35 mmol/L (20-31); Glucose 125 mg/dL (74-106)
--- NOTE | 2025-02-22 10:59 | DVHPN2 ---
Consult Progress Note Date Seen: Feb 22, 2025 Subjective Review of Systems: CVS:Normal, RESPIRATORY:Abnormal, NEURO:Normal Other Systems: C/o mild SOB, improving Objective vital signs Vital Sign Date Time Temp Pulse Resp B/P (MAP) Pulse Ox O2 Delivery O2 Flow Rate FiO2 02/22/25 09:19 117 157/100 02/22/25 08:39 98.4 18 98 98.4 02/22/25 05:49 Nasal Cannula* 3 32 Total Intake and Output 02/21/25 02/21/25 02/22/25 15:00 23:00 07:00 Intake Total 550 ml 1020 ml Output Total 950 ml Balance 550 ml 70 ml medications Current Medications Medications Dose Ordered Sig/Carlos Alberto Route Start Time Stop Time Status Last Admin Dose Admin Acetaminophen 325 mg Q4HP PRN PO 02/20/25 11:30 02/21/25 03:36 325 MG Ondansetron HCl 4 mg Q4HP PRN IV 02/20/25 11:30 Nitroglycerin 0.4 mg Q5MINP PRN SL 02/20/25 11:30 Montelukast Sodium 10 mg DAILY PO 02/20/25 11:45 02/22/25 09:19 10 MG Albuterol 2.5 mg Q8HR NEB 02/20/25 14:00 02/22/25 05:48 2.5 MG Diagnostic Test (Pha) 1 strip ACHS 02/20/25 17:00 02/22/25 06:23 1 STRIP Insulin Human Regular ACHS SC 02/20/25 17:00 02/21/25 22:22 3 UNITS Dextrose 50 ml UD PRN IV 02/20/25 12:45 Fluticasone Propionate 50 mcg Q12HR EACHNOSTRI 02/20/25 22:00 02/21/25 22:00 50 MCG Carvedilol 6.25 mg BID PO 02/20/25 22:00 02/22/25 09:19 6.25 MG Lisinopril 10 mg DAILY PO 02/21/25 10:00 02/22/25 09:18 10 MG Empaglifozin 10 mg DAILY PO 02/21/25 10:00 02/22/25 09:19 10 MG Spironolactone 12.5 mg DAILY PO 02/21/25 10:00 02/22/25 09:19 12.5 MG Bumetanide 2.5 mg BIDD IV 02/21/25 18:00 02/22/25 05:02 2.5 MG Enoxaparin Sodium 110 mg Q12HR SC 02/21/25 22:00 02/22/25 09:18 110 MG laboratory and microbiology Laboratory Tests 02/22/25 07:13 02/21/25 04:48 Test 02/22/25 07:13 Range/Units Serum Glucose 125 H 74-106 mg/dL Problem List/Assessment/Plan Problem List/Assessment/Plan Acute on chronic decompensated HFrEF, NYHA Class IV Nonischemic/drug-induced cardiomyopathy Pulmonary hypertension, severe, Group I Atrial flutter with controlled rate, Stage III, newly diagnosed Dhy-zenjnyd-tbdcwsnxs diabetes mellitus Hypertension Acute methamphetamine intoxication Nicotine dependence Medical non-compliance Morbid obesity Plan/Recommendation (Dr. Conner) Transthoracic echocardiogram revealed LVEF 30% with anterior hypokinesis, RVSP 60-65 mmHg. The patient presents with a nonischemic cardiomyopathy, underwent a cardiac catheterization without catheter based intervention given normal coronaries on . Continue GDMT for CHF and up-titrate as tolerated. Continue preload and afterload reduction, strict I&Os, daily weight, and fluid restrictions. Multiple twelve-lead electrocardiograms revealed an atrial flutter rhythm with a variable block, new onset. Transition to DOAC with Eliquis ([id number] Score, 3 points. HAS-BLED Score 0 points). Follow-up with primary hangar attendant (patient forgot name) within 1-2 weeks post-discharge. Patient could benefit from a cardiac ablation given A-flutter rhythm. Strongly counseled on drug abuse/nicotine use cessation, compliance with medical therapy, and regular follow-ups with Cardiology. Kindly call if in need of further recommendations. We will sign off at this time. Thank you for allowing us to participate in this patient's care. This medical document was created using an electronic medical record system with voice recognition software and computerized dictation system. Although this document has been carefully reviewed, there might still be some phonetic and typographical errors. Occasional wrong-word or ``sound-alike substitutions may have occurred due to the inherent limitations of voice recognition software. These areas are purely typographical due to imperfections of the software programs and do not reflect any compromise in the patient's medical care. Please read the chart carefully and recognize, using context, where these substitutions have occurred. Plan discussed with: Patient, Other Date of Service: Feb 22, 2025 Billing Provider: ALBANIA SANDOVAL Cardiology Common Codes: [id number] HOSP CARE(High ALBANIA SANDOVAL Feb 22, 2025 10:59
--- NOTE | 2025-02-22 11:27 | DVHPN2 ---
Subjective Patient continues to report having shortness of breaths. Reviewed: Care Plan, H&P, Labs, Medications, Previous Orders Changes from previous H/P or p: No Changes General: Per HPI Eyes: No Pain, No Vision change, No Conjunctivae inflammation, No Eyelid inflammation, No Other, No Redness ENT: No Ear pain, No Ear discharge, No Nose pain, No Nose discharge, No Nose congestion, No Mouth pain, No Mouth swelling, No Throat pain, No Throat swelling, No Other Cardiovascular: No Chest Pain, No Palpitations, No Orthopnea, No Paroxysmal Noc. Dyspnea, No Edema, No Lt Headedness, No Other Respiratory: No Cough, No Dry; Shortness of breath; No SOB with excertion; W heezing; No Hemoptysis, No Pleuritic Pain, No Sputum, No Other Gastrointestinal: No Nausea, No Vomiting, No Abdominal Pain, No Diarrhea, No Constipation, No Melena, No Hematochezia; Other (Abdomen distention, skin taut) Genitourinary: No Dysuria, No Frequency, No Incontinence, No Hematuria, No Retention, No Other Musculoskeletal: No other, No neck pain, No shoulder pain, No arm pain, No back pain, No hand pain, No leg pain, No foot pain Skin: No Rash, No Lesions, No Jaundice, No Bruising; Other (Discoloration to bilateral lower extremities, bilateral lower extremities are edematous, nonpitting) Objective Vitals Vital Signs Date Time Temp Pulse Resp B/P (MAP) Pulse Ox O2 Delivery O2 Flow Rate FiO2 02/22/25 09:19 117 157/100 02/22/25 08:39 98.4 18 98 98.4 02/22/25 05:49 Nasal Cannula* 3 32 Intake/Output Intake and Output 02/22/25 07:00 Intake Total 1570 ml Output Total 950 ml Balance 620 ml Intake Oral 1570 ml Output Urine Total 950 ml # Voids 8 General Appearance: Alert, Oriented X3, Cooperative, mild distress HEENT: Atraumatic, PERRLA Lungs: Clear to auscultation, Normal air movement Cardiovascular: Normal S1, Normal S2 Abdomen: Normal bowel sounds, Soft, No tenderness, No hepatospenomegaly Genitourinary: No Apparent Abnormalities Musculoskeletal: Normal sensory function, Normal motor function Extremities: No clubbing, No cyanosis, No edema, Normal pulses, No tenderness/swelling Neuro: Normal gait, Normal speech Skin: Dry, Intact Psych/Mental Status: Mental status NL, Mood NL Medications Current Medications Medications Dose Ordered Sig/Carlos Alberto Route Start Time Stop Time Status Last Admin Dose Admin Acetaminophen 325 mg Q4HP PRN PO 02/20/25 11:30 02/21/25 03:36 325 MG Ondansetron HCl 4 mg Q4HP PRN IV 02/20/25 11:30 Nitroglycerin 0.4 mg Q5MINP PRN SL 02/20/25 11:30 Montelukast Sodium 10 mg DAILY PO 02/20/25 11:45 02/22/25 09:19 10 MG Albuterol 2.5 mg Q8HR NEB 02/20/25 14:00 02/22/25 05:48 2.5 MG Diagnostic Test (Pha) 1 strip ACHS 02/20/25 17:00 02/22/25 06:23 1 STRIP Insulin Human Regular ACHS SC 02/20/25 17:00 02/21/25 22:22 3 UNITS Dextrose 50 ml UD PRN IV 02/20/25 12:45 Fluticasone Propionate 50 mcg Q12HR EACHNOSTRI 02/20/25 22:00 02/21/25 22:00 50 MCG Lisinopril 10 mg DAILY PO 02/21/25 10:00 02/22/25 09:18 10 MG Empaglifozin 10 mg DAILY PO 02/21/25 10:00 02/22/25 09:19 10 MG Spironolactone 12.5 mg DAILY PO 02/21/25 10:00 02/22/25 09:19 12.5 MG Bumetanide 2.5 mg BIDD IV 02/21/25 18:00 02/22/25 05:02 2.5 MG Carvedilol 12.5 mg BID PO 02/22/25 22:00 UNV Apixaban 5 mg BID PO 02/22/25 22:00 UNV Laboratory Results Laboratory Tests 02/21/25 04:48 02/22/25 07:13 Chemistry Test 02/22/25 07:13 Calcium Level 8.7 mg/dL (8.7-10.4) Magnesium Level 2.1 mg/dL (1.6-2.6) Cardiac Markers Test 02/22/25 07:13 B-Type Natriuretic Peptide 391.70 pg/mL (0-100) Urinalysis Test 02/20/25 04:10 Urine Color Yellow (Yellow) Urine Clarity Clear (Clear) Urine pH 6.0 (5.0-9.0) Urine Specific [place] 1.014 (1.001-1.035) Urine Protein Trace (Negative) H Urine Ketones Negative (Negative) Urine Blood Negative /uL (Negative) Urine Nitrite Negative (Negative) Urine Bilirubin Negative (Negative) Urine Urobilinogen Normal mg/dL (Negative) Urine Leukocyte Esterase Trace /uL (Negative) Urine RBC 2 /hpf (0 - 3) Urine Microscopic WBC 7 /HPF (0-3) H Urine Squamous Epithelial Cells Few /hpf (<5) Urine Calcium Oxalate Crystals Mod (None Seen) Urine Bacteria Few /hpf (None Seen) H Urine Hyaline Casts Few /lpf (0 - 2) Urine Mucus Few (None Seen) Urine Glucose Normal mg/dL (Normal) Labs and/or images reviewed: Labs reviewed by me, Image(s) reviewed by me Assessment/Plan Assessment/Plan Impression: -acute on chronic hypoxic respiratory failure -acute on chronic systolic and diastolic heart failure -obstructive sleep apnea -morbid obesity -amphetamine use -pulmonary hypertension -primary hypertension -diabetes mellitus Plan: Events: Patient continues to be in a flutter with variable rate. -cardiology consultation: Recommendations reviewed. -continue IV diuresis with Bumex -fluid restriction -regular insulin sliding scale -change anticoagulation from Lovenox to Eliquis -CPAP at night -bronchodilators as needed -increase carvedilol -repeat labs in a.m. Total time spent with patient discussing and formulating plan of care: 35 minutes. This medical document was created using an electronic medical record system with [employer] dictation system. Although this document has been carefully reviewed, there may still be some phonetic and typographical errors. These areas are purely typographical due to imperfections of the software programs, and do not reflect any compromise in the patient's medical care. Plan discussed with: Patient, Other (RN) My Orders Orders - KEYLA GASTELUM SALES AND SERVICE AGENT Procedure Category Date Status Time Bumetanide Injection PHA 02/21/25 In Process (Bumex Injection) 18:00 Levalbuterol Hcl PHA 02/22/25 Transmitted (Xopenex Medneb) 12:00 Ipratropium Medneb PHA 02/22/25 Transmitted (Atrovent Medneb) 12:00 Basic Metabolic Panel LAB 02/23/25 Verified 04:00 Magnesium LAB 02/23/25 Verified 04:00 Date of Service: Feb 22, 2025 Billing Provider: KEYLA GASTELUM NP Common Visit Codes: [id number] INP/OBS CARE(HIGH) KEYLA GASTELUM NP Feb 22, 2025 11:27
[2025-02-22] MEDS: LEVALBUTEROL HCL 1.25 MG/3 ML NEB NEB SCH (12:06)
[2025-02-22] MEDS: IPRATROPIUM BROM 0.5 MG/2.5ML INH SOL NEB SCH (12:06)
--- NOTE | 2025-02-22 13:58 | ECG ---
[facility] Test Date: 2025-02-21 Test Time: 08:52:42 Pat Name: IRMA BARRIENTOS Department: er Room: [facility]6T B Gender: M Improvement Lead: gissel : 1965 Requested By: ALBANIA SANDOVAL Order Number: [id number] Reading MD: Sixto Conner Measurements Intervals [place] Rate: 114 P: 269 AL: 133 QRS: 91 QRSD: 95 T: 263 QT: 307 QTc: 423 Interpretive Statements Sinus or ectopic atrial tachycardia Right axis deviation Low voltage, precordial leads Repol abnrm, severe global ischemia (LM/MVD) Electronically Signed On 02-23-2025 17:00:42 PDT by Sixto Conner Please click the below link to view image of tracing.
[2025-02-22] MEDS: ALPRAZolam 0.25 MG TAB PO PRN (16:01)
[2025-02-22] MEDS: ALPRAZolam 0.25 MG TAB PO ONE (21:28)
[2025-02-22] MEDS: APIXABAN 5 MG TAB PO SCH (21:28)
[2025-02-22] MEDS: CARVEDILOL 12.5 MG TAB PO SCH (21:29)
[2025-02-23] VITALS (20 sets, daily range): BP systolic 112–168; BP diastolic 76–105; PULSE 56–118; RESP 17–21; TEMP 97.8–98.2; O2SAT 10–100
[2025-02-23] MEDS: MELATONIN 5 MG TAB PO ONE (00:21)
[2025-02-23] MEDS: IPRATROPIUM BROM 0.5 MG/2.5ML INH SOL NEB PRN (00:25)
[2025-02-23 06:52] LABS: Anion Gap 7 (5-15); Chloride 99 mmol/L (98-107); Potassium 3.9 mmol/L (3.5-5.1); Sodium 142 mmol/L (136-145)
[2025-02-23 06:53] LABS: Calcium 8.7 mg/dL (8.7-10.4)
[2025-02-23 06:57] LABS: Carbon Dioxide 36 mmol/L (20-31)
[2025-02-23 06:58] LABS: Base Excess 6.5 mmol/L (-2.0-3.0)
[2025-02-23 06:58] LABS: BUN/Creatinine Ratio 16.1 (10.0-20.0); Blood Urea Nitrogen 18 mg/dL (9-23); Glucose 137 mg/dL (74-106); Magnesium 2.3 mg/dL (1.6-2.6)
--- NOTE | 2025-02-23 13:19 | DVHPN2 ---
Subjective Patient continues to report having shortness of breaths. Reviewed: Care Plan, H&P, Labs, Medications, Previous Orders Changes from previous H/P or p: No Changes General: Per HPI Eyes: No Pain, No Vision change, No Conjunctivae inflammation, No Eyelid inflammation, No Other, No Redness ENT: No Ear pain, No Ear discharge, No Nose pain, No Nose discharge, No Nose congestion, No Mouth pain, No Mouth swelling, No Throat pain, No Throat swelling, No Other Cardiovascular: No Chest Pain, No Palpitations, No Orthopnea, No Paroxysmal Noc. Dyspnea, No Edema, No Lt Headedness, No Other Respiratory: No Cough, No Dry; Shortness of breath; No SOB with excertion; W heezing; No Hemoptysis, No Pleuritic Pain, No Sputum, No Other Gastrointestinal: No Nausea, No Vomiting, No Abdominal Pain, No Diarrhea, No Constipation, No Melena, No Hematochezia; Other (Abdomen distention, skin taut) Genitourinary: No Dysuria, No Frequency, No Incontinence, No Hematuria, No Retention, No Other Musculoskeletal: No other, No neck pain, No shoulder pain, No arm pain, No back pain, No hand pain, No leg pain, No foot pain Skin: No Rash, No Lesions, No Jaundice, No Bruising; Other (Discoloration to bilateral lower extremities, bilateral lower extremities are edematous, nonpitting) Objective Vitals Vital Signs Date Time Temp Pulse Resp B/P (MAP) Pulse Ox O2 Delivery O2 Flow Rate FiO2 02/23/25 11:45 113 18 96 02/23/25 11:37 Nasal Cannula 2.0 02/23/25 11:37 28 02/23/25 08:35 98.0 168/94 (118) 98.0 Intake/Output Intake and Output 02/23/25 07:00 Intake Total 2110 ml Output Total 3650 ml Balance -1540 ml Intake Oral 2110 ml Output Urine Total 3650 ml General Appearance: Alert, Oriented X3, Cooperative, mild distress HEENT: Atraumatic, PERRLA Lungs: Clear to auscultation, Normal air movement Cardiovascular: Normal S1, Normal S2 Abdomen: Normal bowel sounds, Soft, No tenderness, No hepatospenomegaly Genitourinary: No Apparent Abnormalities Musculoskeletal: Normal sensory function, Normal motor function Extremities: No clubbing, No cyanosis, No edema, Normal pulses, No tenderness/swelling Neuro: Normal gait, Normal speech Skin: Dry, Intact Psych/Mental Status: Mental status NL, Mood NL Medications Current Medications Medications Dose Ordered Sig/Carlos Alberto Route Start Time Stop Time Status Last Admin Dose Admin Acetaminophen 325 mg Q4HP PRN PO 02/20/25 11:30 02/22/25 13:44 325 MG Ondansetron HCl 4 mg Q4HP PRN IV 02/20/25 11:30 Nitroglycerin 0.4 mg Q5MINP PRN SL 02/20/25 11:30 Montelukast Sodium 10 mg DAILY PO 02/20/25 11:45 02/23/25 08:27 10 MG Diagnostic Test (Pha) 1 strip ACHS 02/20/25 17:00 02/23/25 11:33 1 STRIP Insulin Human Regular ACHS SC 02/20/25 17:00 02/22/25 21:43 3 UNITS Dextrose 50 ml UD PRN IV 02/20/25 12:45 Fluticasone Propionate 50 mcg Q12HR EACHNOSTRI 02/20/25 22:00 02/23/25 08:29 50 MCG Lisinopril 10 mg DAILY PO 02/21/25 10:00 02/23/25 08:28 10 MG Empaglifozin 10 mg DAILY PO 02/21/25 10:00 02/23/25 08:28 10 MG Spironolactone 12.5 mg DAILY PO 02/21/25 10:00 02/23/25 08:28 12.5 MG Bumetanide 2.5 mg BIDD IV 02/21/25 18:00 02/23/25 05:12 2.5 MG Carvedilol 12.5 mg BID PO 02/22/25 22:00 02/23/25 08:27 12.5 MG Apixaban 5 mg BID PO 02/22/25 22:00 02/23/25 08:29 5 MG Levalbuterol HCl 0.625 mg Q6HWA NEB 02/22/25 12:00 02/23/25 11:37 0.625 MG Ipratropium [place] 0.5 mg Q6HWA NEB 02/22/25 12:00 02/23/25 11:37 0.5 MG Ondansetron HCl 4 mg Q6HPRN PRN IV 02/22/25 15:15 Tramadol HCl 50 mg Q6HP PRN PO 02/22/25 15:15 Alprazolam 0.25 mg Q8HP PRN PO 02/22/25 15:15 02/22/25 16:01 0.25 MG Ipratropium [place] 0.5 mg Q4HPRN PRN NEB 02/22/25 23:45 02/23/25 00:25 0.5 MG Laboratory Results Laboratory Tests 02/21/25 04:48 02/23/25 05:28 Chemistry Test 02/23/25 05:28 Calcium Level 8.7 mg/dL (8.7-10.4) Magnesium Level 2.3 mg/dL (1.6-2.6) Urinalysis Test 02/20/25 04:10 Urine Color Yellow (Yellow) Urine Clarity Clear (Clear) Urine pH 6.0 (5.0-9.0) Urine Specific [place] 1.014 (1.001-1.035) Urine Protein Trace (Negative) H Urine Ketones Negative (Negative) Urine Blood Negative /uL (Negative) Urine Nitrite Negative (Negative) Urine Bilirubin Negative (Negative) Urine Urobilinogen Normal mg/dL (Negative) Urine Leukocyte Esterase Trace /uL (Negative) Urine RBC 2 /hpf (0 - 3) Urine Microscopic WBC 7 /HPF (0-3) H Urine Squamous Epithelial Cells Few /hpf (<5) Urine Calcium Oxalate Crystals Mod (None Seen) Urine Bacteria Few /hpf (None Seen) H Urine Hyaline Casts Few /lpf (0 - 2) Urine Mucus Few (None Seen) Urine Glucose Normal mg/dL (Normal) Blood Gas Results Test 02/23/25 06:48 Arterial Blood pH 7.408 (7.350-7.450) FiO2 % 40.0 Labs and/or images reviewed: Labs reviewed by me, Image(s) reviewed by me Assessment/Plan Assessment/Plan Impression: -acute on chronic hypoxic respiratory failure -acute on chronic systolic and diastolic heart failure -obstructive sleep apnea -morbid obesity -amphetamine use -pulmonary hypertension -primary hypertension -diabetes mellitus Plan: Events: Patient continues to be in a flutter with variable rate. -cardiology consultation: Reconsult Cardiology to evaluate for possible MAURIZIO with cardioversion -start Bumex drip -fluid restriction -regular insulin sliding scale -change anticoagulation from Lovenox to Eliquis -CPAP at night -bronchodilators as needed -continue beta-kelsy therapy -repeat labs in a.m. Total time spent with patient discussing and formulating plan of care: 35 minutes. This medical document was created using an electronic medical record system with [employer] dictation system. Although this document has been carefully reviewed, there may still be some phonetic and typographical errors. These areas are purely typographical due to imperfections of the software programs, and do not reflect any compromise in the patient's medical care. Plan discussed with: Patient, Other (RN) My Orders Orders - KEYLA GASTELUM NP Procedure Category Date Status Time Ondansetron Hcl PHA 02/22/25 In Process (Zofran) 15:15 Tramadol Hcl (Ultram) PHA 02/22/25 In Process 15:15 Alprazolam Tablet PHA 02/22/25 In Process (Xanax Tablet) 15:15 Spironolactone PHA 02/24/25 Verified (Aldactone) 10:00 Bumex Drip PHA 02/23/25 Verified 13:15 * Cardiology Consult CONS 02/23/25 Verified 13:05 Basic Metabolic Panel LAB 02/24/25 Verified 05:00 Basic Metabolic Panel LAB 02/25/25 Verified 05:00 Basic Metabolic Panel LAB 02/26/25 Verified 05:00 Magnesium LAB 02/24/25 Verified 05:00 Magnesium LAB 02/25/25 Verified 05:00 Magnesium LAB 02/26/25 Verified 05:00 Date of Service: Feb 23, 2025 Billing Provider: KEYLA GASTELUM NP Common Visit Codes: [id number] INP/OBS CARE(HIGH) KEYLA GASTELUM NP Feb 23, 2025 13:19
--- NOTE | 2025-02-23 14:42 | DVHPN2 ---
Consult Progress Note Subjective Other Systems: Patient remains in atrial flutter with uncontrolled heart rate on threat monitoring analyst Objective vital signs Vital Sign Date Time Temp Pulse Resp B/P (MAP) Pulse Ox O2 Delivery O2 Flow Rate FiO2 02/23/25 13:19 98.2 109 18 133/93 (106) 97 98.2 02/23/25 11:37 Nasal Cannula 2.0 02/23/25 11:37 28 Total Intake and Output 02/22/25 02/22/25 02/23/25 15:00 23:00 07:00 Intake Total 840 ml 1270 ml Output Total 1250 ml 2400 ml Balance -410 ml -1130 ml medications Current Medications Medications Dose Ordered Sig/Carlos Alberto Route Start Time Stop Time Status Last Admin Dose Admin Acetaminophen 325 mg Q4HP PRN PO 02/20/25 11:30 02/22/25 13:44 325 MG Ondansetron HCl 4 mg Q4HP PRN IV 02/20/25 11:30 Cancel Nitroglycerin 0.4 mg Q5MINP PRN SL 02/20/25 11:30 Montelukast Sodium 10 mg DAILY PO 02/20/25 11:45 02/23/25 08:27 10 MG Diagnostic Test (Pha) 1 strip ACHS 02/20/25 17:00 02/23/25 11:33 1 STRIP Insulin Human Regular ACHS SC 02/20/25 17:00 02/22/25 21:43 3 UNITS Dextrose 50 ml UD PRN IV 02/20/25 12:45 Fluticasone Propionate 50 mcg Q12HR EACHNOSTRI 02/20/25 22:00 02/23/25 08:29 50 MCG Lisinopril 10 mg DAILY PO 02/21/25 10:00 02/23/25 08:28 10 MG Empaglifozin 10 mg DAILY PO 02/21/25 10:00 02/23/25 08:28 10 MG Carvedilol 12.5 mg BID PO 02/22/25 22:00 02/23/25 08:27 12.5 MG Apixaban 5 mg BID PO 02/22/25 22:00 02/23/25 08:29 5 MG Levalbuterol HCl 0.625 mg Q6HWA NEB 02/22/25 12:00 02/23/25 11:37 0.625 MG Ipratropium [place] 0.5 mg Q6HWA NEB 02/22/25 12:00 02/23/25 11:37 0.5 MG Ondansetron HCl 4 mg Q6HPRN PRN IV 02/22/25 15:15 Tramadol HCl 50 mg Q6HP PRN PO 02/22/25 15:15 Alprazolam 0.25 mg Q8HP PRN PO 02/22/25 15:15 02/22/25 16:01 0.25 MG Ipratropium [place] 0.5 mg Q4HPRN PRN NEB 02/22/25 23:45 02/23/25 00:25 0.5 MG Spironolactone 25 mg DAILY PO 02/24/25 10:00 Bumetanide 25 mg/ Miscellaneous 100 ml @ 4 mls/hr Q24H IV 02/23/25 13:15 Examination: GENERAL:Abnormal (Generalized weakness), LUNGS:Normal, CVS:Abnormal (Atrial flutter with a variable rate), NEURO:Normal laboratory and microbiology Laboratory Tests 02/23/25 05:28 02/21/25 04:48 Test 02/23/25 05:28 Range/Units Serum Glucose 137 H 74-106 mg/dL Problem List/Assessment/Plan Problem List/Assessment/Plan Acute on chronic decompensated HFrEF, NYHA Class IV Nonischemic/drug-induced cardiomyopathy Pulmonary hypertension, severe, Group I Atrial flutter with uncontrolled rate, Stage III, newly diagnosed Eri-xrhkbsq-tuashlvha diabetes mellitus Hypertension Acute methamphetamine intoxication Nicotine dependence Medical non-compliance Morbid obesity Plan/Recommendation (Dr. Payne): Case discussed with . Cardiology has been reconsulted at this time for atrial flutter with uncontrolled, variable rate. The patient also complains of feeling tired. The patient may benefit from a transesophageal echocardiogram with bubble study followed by a direct current cardioversion. Discussed plan with the patient and partner at bedside. The patient agreeable to undergo procedure. We will schedule the patient on 02/24/2025. A Transthoracic echocardiogram revealed LVEF 30% with anterior hypokinesis, RVSP 60-65 mmHg. The patient presents with a nonischemic cardiomyopathy, underwent a cardiac catheterization without catheter based intervention given normal coronaries on . Continue GDMT for CHF and up-titrate as tolerated. Continue preload and afterload reduction, strict I&Os, daily weight, and fluid restrictions. Continue DOAC with Eliquis ([id number] Score, 3 points. HAS-BLED Score 0 points). Continue beta-kelsy for rate control. Continue with close cardiac surveillance. Thank you for allowing us to participate in this patient's care. This medical document was created using an electronic medical record system with voice recognition software and computerized dictation system. Although this document has been carefully reviewed, there might still be some phonetic and typographical errors. Occasional wrong-word or ``sound-alike substitutions may have occurred due to the inherent limitations of voice recognition software. These areas are purely typographical due to imperfections of the software programs and do not reflect any compromise in the patient's medical care. Please read the chart carefully and recognize, using context, where these substitutions have occurred. Plan discussed with: Patient Date of Service: Feb 23, 2025 Billing Provider: ORLIN LEE Common Visit Codes: [id number] INP/OBS CARE(HIGH) ORLIN LEE Feb 23, 2025 14:42
[2025-02-23] MEDS: BUMETANIDE INJECTION 25 MG in GIVE UN-DILUTED 0 ML IV SCH (16:15)
[2025-02-23] MEDS ORDERED: MELATONIN 5 MG TAB PO ONE (22:00)
[2025-02-24] VITALS (23 sets, daily range): BP systolic 109–157; BP diastolic 76–110; PULSE 65–119; RESP 13–22; TEMP 98–98.5; O2SAT 86–100
[2025-02-24] MEDS: SPIRONOLACTONE 25 MG TAB PO SCH (10:00)
[2025-02-24 10:32] LABS: Potassium 3.6 mmol/L (3.5-5.1); Sodium 143 mmol/L (136-145)
[2025-02-24 10:33] LABS: Calcium 8.8 mg/dL (8.7-10.4)
[2025-02-24 10:38] LABS: BUN/Creatinine Ratio 16.2 (10.0-20.0); Blood Urea Nitrogen 17 mg/dL (9-23)
[2025-02-24 10:39] LABS: Magnesium 2.1 mg/dL (1.6-2.6)
[2025-02-24 11:14] LABS: Chloride 95 mmol/L (98-107)
[2025-02-24 11:16] LABS: Anion Gap 7.99999 (5-15); Carbon Dioxide > 40 mmol/L (20-31); Glucose 137 mg/dL (74-106)
--- NOTE | 2025-02-24 12:28 | DVHPN2 ---
Subjective Patient continues to report having shortness of breaths. Reviewed: Care Plan, H&P, Labs, Medications, Previous Orders Changes from previous H/P or p: No Changes General: Per HPI Eyes: No Pain, No Vision change, No Conjunctivae inflammation, No Eyelid inflammation, No Other, No Redness ENT: No Ear pain, No Ear discharge, No Nose pain, No Nose discharge, No Nose congestion, No Mouth pain, No Mouth swelling, No Throat pain, No Throat swelling, No Other Cardiovascular: No Chest Pain, No Palpitations, No Orthopnea, No Paroxysmal Noc. Dyspnea, No Edema, No Lt Headedness, No Other Respiratory: No Cough, No Dry; Shortness of breath; No SOB with excertion; W heezing; No Hemoptysis, No Pleuritic Pain, No Sputum, No Other Gastrointestinal: No Nausea, No Vomiting, No Abdominal Pain, No Diarrhea, No Constipation, No Melena, No Hematochezia; Other (Abdomen distention, skin taut) Genitourinary: No Dysuria, No Frequency, No Incontinence, No Hematuria, No Retention, No Other Musculoskeletal: No other, No neck pain, No shoulder pain, No arm pain, No back pain, No hand pain, No leg pain, No foot pain Skin: No Rash, No Lesions, No Jaundice, No Bruising; Other (Discoloration to bilateral lower extremities, bilateral lower extremities are edematous, nonpitting) Objective Vitals Vital Signs Date Time Temp Pulse Resp B/P (MAP) Pulse Ox O2 Delivery O2 Flow Rate FiO2 02/24/25 10:30 91 Nasal Cannula 3.0 02/24/25 10:30 32 02/24/25 08:30 115 02/24/25 07:30 18 02/24/25 05:00 98.1 141/110 (120) 98.1 Intake/Output Intake and Output 02/24/25 07:00 Intake Total 776 ml Output Total 2000 ml Balance -1224 ml Intake Oral 720 ml IV Total 56 ml Output Urine Total 2000 ml # Voids 3 General Appearance: Alert, Oriented X3, Cooperative, mild distress HEENT: Atraumatic, PERRLA Lungs: Clear to auscultation, Normal air movement Cardiovascular: Normal S1, Normal S2 Abdomen: Normal bowel sounds, Soft, No hepatospenomegaly, Other (Redness noted to abdominal area) Genitourinary: No Apparent Abnormalities Musculoskeletal: Normal sensory function, Normal motor function Extremities: No clubbing, No cyanosis, No edema, Normal pulses, No tenderness/swelling Neuro: Normal gait, Normal speech Skin: Dry, Intact Psych/Mental Status: Mental status NL, Mood NL Medications Current Medications Medications Dose Ordered Sig/Carlos Alberto Route Start Time Stop Time Status Last Admin Dose Admin Acetaminophen 325 mg Q4HP PRN PO 02/20/25 11:30 02/23/25 16:16 325 MG Ondansetron HCl 4 mg Q4HP PRN IV 02/20/25 11:30 Cancel Nitroglycerin 0.4 mg Q5MINP PRN SL 02/20/25 11:30 Montelukast Sodium 10 mg DAILY PO 02/20/25 11:45 02/23/25 08:27 10 MG Diagnostic Test (Pha) 1 strip ACHS 02/20/25 17:00 02/24/25 11:31 1 STRIP Insulin Human Regular ACHS SC 02/20/25 17:00 02/23/25 21:29 2 UNITS Dextrose 50 ml UD PRN IV 02/20/25 12:45 Fluticasone Propionate 50 mcg Q12HR EACHNOSTRI 02/20/25 22:00 02/24/25 11:28 50 MCG Lisinopril 10 mg DAILY PO 02/21/25 10:00 02/23/25 08:28 10 MG Empaglifozin 10 mg DAILY PO 02/21/25 10:00 02/23/25 08:28 10 MG Carvedilol 12.5 mg BID PO 02/22/25 22:00 02/23/25 08:27 12.5 MG Apixaban 5 mg BID PO 02/22/25 22:00 02/23/25 21:21 5 MG Levalbuterol HCl 0.625 mg Q6HWA NEB 02/22/25 12:00 02/24/25 06:34 0.625 MG Ipratropium [place] 0.5 mg Q6HWA NEB 02/22/25 12:00 02/24/25 06:35 0.5 MG Ondansetron HCl 4 mg Q6HPRN PRN IV 02/22/25 15:15 Tramadol HCl 50 mg Q6HP PRN PO 02/22/25 15:15 Alprazolam 0.25 mg Q8HP PRN PO 02/22/25 15:15 02/24/25 01:09 0.25 MG Ipratropium [place] 0.5 mg Q4HPRN PRN NEB 02/22/25 23:45 02/23/25 22:38 0.5 MG Spironolactone 25 mg DAILY PO 02/24/25 10:00 Bumetanide 25 mg/ Miscellaneous 100 ml @ 4 mls/hr Q24H IV 02/23/25 13:15 02/23/25 16:15 4 MLS/HR Laboratory Results Laboratory Tests 02/21/25 04:48 02/24/25 09:39 Chemistry Test 02/24/25 09:39 Calcium Level 8.8 mg/dL (8.7-10.4) Magnesium Level 2.1 mg/dL (1.6-2.6) Urinalysis Test 02/20/25 04:10 Urine Color Yellow (Yellow) Urine Clarity Clear (Clear) Urine pH 6.0 (5.0-9.0) Urine Specific [place] 1.014 (1.001-1.035) Urine Protein Trace (Negative) H Urine Ketones Negative (Negative) Urine Blood Negative /uL (Negative) Urine Nitrite Negative (Negative) Urine Bilirubin Negative (Negative) Urine Urobilinogen Normal mg/dL (Negative) Urine Leukocyte Esterase Trace /uL (Negative) Urine RBC 2 /hpf (0 - 3) Urine Microscopic WBC 7 /HPF (0-3) H Urine Squamous Epithelial Cells Few /hpf (<5) Urine Calcium Oxalate Crystals Mod (None Seen) Urine Bacteria Few /hpf (None Seen) H Urine Hyaline Casts Few /lpf (0 - 2) Urine Mucus Few (None Seen) Urine Glucose Normal mg/dL (Normal) Labs and/or images reviewed: Labs reviewed by me, Image(s) reviewed by me Assessment/Plan Assessment/Plan Impression: -acute on chronic hypoxic respiratory failure -acute on chronic systolic and diastolic heart failure -obstructive sleep apnea -morbid obesity -amphetamine use -pulmonary hypertension -primary hypertension -diabetes mellitus Plan: Events: Continues to be in a flutter with uncontrolled rate. Now reporting redness and burning to abdominal area. Questionable allergic reaction. Plans for MAURIZIO with cardioversion today. -IV Solu-Medrol, Pepcid, Benadryl -cardiology consultation: Recommendations reviewed -continue Bumex drip -fluid restriction -regular insulin sliding scale -change anticoagulation from Lovenox to Eliquis -CPAP at night -bronchodilators as needed -continue beta-kelsy therapy -repeat labs in a.m. Total time spent with patient discussing and formulating plan of care: 35 minutes. This medical document was created using an electronic medical record system with [employer] dictation system. Although this document has been carefully reviewed, there may still be some phonetic and typographical errors. These areas are purely typographical due to imperfections of the software programs, and do not reflect any compromise in the patient's medical care. Plan discussed with: Patient, Spouse, Other (RN) My Orders Orders - KEYLA GASTELUM NP Procedure Category Date Status Time Spironolactone PHA 02/24/25 In Process (Aldactone) 10:00 Give Un-Diluted PHA 02/23/25 In Process (Gi... W/Bumetanide 13:15 * Cardiology Consult CONS 02/23/25 Transmitted 13:05 Basic Metabolic Panel LAB 02/25/25 Verified 05:00 Basic Metabolic Panel LAB 02/26/25 Verified 05:00 Magnesium LAB 02/25/25 Verified 05:00 Magnesium LAB 02/26/25 Verified 05:00 Methylprednisolone PHA 02/24/25 Transmitted Sod Succ (Solu Medrol 12:30 Famotidine Injection PHA 02/24/25 Transmitted (Pepcid Injection) 12:30 Diphenhdramine PHA 02/24/25 Transmitted Injection (Benadryl 12:30 Complete Blood Count LAB 02/25/25 Verified 04:00 Date of Service: Feb 24, 2025 Billing Provider: KEYLA GASTELUM NP Common Visit Codes: [id number] INP/OBS CARE(HIGH) KEYLA GASTELUM NP Feb 24, 2025 12:28
[2025-02-24] MEDS: diphenhdrAMINE HCL 50 MG/1 ML VL IV ONE (12:30)
[2025-02-24] MEDS: FAMOTIDINE (10MG/ML) 2ML VL IV ONE (12:30)
[2025-02-24] MEDS: methylPREDNISolone SOD SUCC 125 MG/2 ML VL IV ONE (12:30)
--- NOTE | 2025-02-24 12:52 | DVHPN2 ---
Progress Note Date Seen: Feb 24, 2025 Medical Necessity Reason Pt with a Central, PICC or Fol: No Subjective Patient reports: Feels better Objective vital signs Vital Sign Date Time Temp Pulse Resp B/P (MAP) Pulse Ox O2 Delivery O2 Flow Rate FiO2 02/24/25 10:30 91 Nasal Cannula 3.0 02/24/25 10:30 32 02/24/25 08:30 115 02/24/25 07:30 18 02/24/25 05:00 98.1 141/110 (120) 98.1 Total Intake and Output 02/23/25 02/23/25 02/24/25 15:00 23:00 07:00 Intake Total 720 ml 56 ml Output Total 2000 ml Balance -1280 ml 56 ml medications Current Medications Medications Dose Ordered Sig/Carlos Alberto Route Start Time Stop Time Status Last Admin Dose Admin Acetaminophen 325 mg Q4HP PRN PO 02/20/25 11:30 02/23/25 16:16 325 MG Ondansetron HCl 4 mg Q4HP PRN IV 02/20/25 11:30 Cancel Nitroglycerin 0.4 mg Q5MINP PRN SL 02/20/25 11:30 Montelukast Sodium 10 mg DAILY PO 02/20/25 11:45 02/23/25 08:27 10 MG Diagnostic Test (Pha) 1 strip ACHS 02/20/25 17:00 02/24/25 11:31 1 STRIP Insulin Human Regular ACHS SC 02/20/25 17:00 02/23/25 21:29 2 UNITS Dextrose 50 ml UD PRN IV 02/20/25 12:45 Fluticasone Propionate 50 mcg Q12HR EACHNOSTRI 02/20/25 22:00 02/24/25 11:28 50 MCG Lisinopril 10 mg DAILY PO 02/21/25 10:00 02/23/25 08:28 10 MG Empaglifozin 10 mg DAILY PO 02/21/25 10:00 02/23/25 08:28 10 MG Carvedilol 12.5 mg BID PO 02/22/25 22:00 02/23/25 08:27 12.5 MG Apixaban 5 mg BID PO 02/22/25 22:00 02/23/25 21:21 5 MG Levalbuterol HCl 0.625 mg Q6HWA NEB 02/22/25 12:00 9/5/25 06:34 0.625 MG Ipratropium [place] 0.5 mg Q6HWA NEB 02/22/25 12:00 02/24/25 06:35 0.5 MG Ondansetron HCl 4 mg Q6HPRN PRN IV 02/22/25 15:15 Tramadol HCl 50 mg Q6HP PRN PO 02/22/25 15:15 Alprazolam 0.25 mg Q8HP PRN PO 02/22/25 15:15 02/24/25 01:09 0.25 MG Ipratropium [place] 0.5 mg Q4HPRN PRN NEB 02/22/25 23:45 02/23/25 22:38 0.5 MG Spironolactone 25 mg DAILY PO 02/24/25 10:00 Bumetanide 25 mg/ Miscellaneous 100 ml @ 4 mls/hr Q24H IV 02/23/25 13:15 02/23/25 16:15 4 MLS/HR Examination: GENERAL:Abnormal, HEENT:Abnormal, LUNGS:Abnormal, CVS:Abnormal, ABDOMEN:Abnormal laboratory and microbiology Laboratory Tests 02/24/25 09:39 02/21/25 04:48 Test 02/24/25 09:39 Range/Units Serum Glucose 137 H 74-106 mg/dL Problem List/Assessment/Plan Problem List/Assessment/Plan AFL --> SR s/p gee guided dccv cont doac recommend po amio and BB high bicarbo, chronic CO2 retention, copd morbid obesity 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
--- NOTE | 2025-02-24 12:54 | DVHOP2 ---
Operative Report Operative Report CARDIAC PARAMEDIC PROCEDURE REPORT [place], [place] Date of Service: 02/24/25 Wholesale Account Manager: Radha Oliva MD PROCEDURES PERFORMED: trans esophageal echocardiogram, conscious sedation <15 mins, doppler assesment complete MAURIZIO, DC cardioversion PREOPERATIVE DIAGNOSES: Aflutter POSTOP DIAGNOSIS: SR DESCRIPTION OF PROCEDURE: The patient or appropriate family signed informed consent understanding the risks, benefits and alternatives of the procedure, they wished to proceed. The patient was brought to the cardiac chemical lab technician in n.p.o. state. the patient was given 15 ml of oral viscous lidocaine. the patient was placed in a left lateral decubitus position with bite block in mouth. NExt conscious sedation was administered per chemical lab technician protocol with _1_ mg of versed and __50_ mcg of fentanyl. Next a MAURIZIO probe was advanced to the mid esophagus with ease and multiple planar images obtained. At the completion of the procedure , probe was removed and there were no immediate complications. FINDINGS: Left Ventricle: moderate dysfunction and tachycardia , LVEF estimated at 30% Right VentricleRV enlarged, dysfunction Left atrium: enlarged, Right atrium: moderate enlarged Left atrial appendage: no thrombus noted, decreased velocity on PW monitoring Aortic valve: trileaflet valve, no severe or AI Mitral Valve: structurally normal, mild to moderate mitral regurg, no MS Tricuspid Valve: mild to moderate tricuspid regurgitaiton, no TS Pulmonic Valve: strucutrally normal, no severe PIor PS Interatrial septum: negative color flow for R to L shunt Ascending aorta: no severe plaquing Next we sync'ed to 200 J and 1 shock delivered with successful jehovah's witness of Normal Sinus rhythm. CONCLUSIONS: 1. Successful MAURIZIO guided DCCV PLAN: cont doac cont amiodarone for now RADHA OLIVA MD Feb 24, 2025 12:54
[2025-02-24] MEDS: fentaNYL CITRATE 100 MCG/2 ML VL IV ONE (14:05)
[2025-02-24] MEDS: LIDOCAINE VISCOUS 2% 15ML UD PO ONE (14:05)
[2025-02-24] MEDS: MIDAZOLAM HCL 2MG/2ML 2ml VIAL (1mg/ml) IV ONE (14:05)
[2025-02-24] MEDS: diphenhdrAMINE HCL 50 MG/1 ML VL ONE (14:05)
--- NOTE | 2025-02-24 15:16 | ECG ---
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
--- NOTE | 2025-02-24 18:37 | DVH ---
Indication: post fall, patient hit his head. Comparison: CT HEAD WITHOUT CONTRAST on DOS: 08/04/24, CT HEAD WITHOUT CONTRAST on DOS: 07/31/24 Technique: Utilizing a multislice CT scanner, a CT scan of the brain was performed without intravenou s contrast. Coronal and sagittal reformatted images. All CT scans at this facility use dose modulation, iterative reconstruction, and/or weight based dosi ng when appropriate to reduce radiation dose to as low as reasonably achievable. Findings: There is no acute infarct, intracranial hemorrhage, or mass effect. There is no hydrocephalus or sign ificant midline shift. There is mild chronic microvascular ischemic changes and mild parenchymal volume loss. No acute, depressed calvarial fractures. Tiny left anterior frontal scalp contusion. Impression: 1. No acute intracranial hemorrhage or mass effect.
--- NOTE | 2025-02-24 21:34 | DVH ---
EXAM: CT CERVICAL WITHOUT CONTRAST HISTORY: FALL COMPARISON: CT HEAD WITHOUT CONTRAST on DOS: 02/24/25, CT HEAD WITHOUT CONTRAST on DOS: 08/04/24, CT HEA D WITHOUT CONTRAST on DOS: 07/31/24 CTDIvol 23.25 mGy, DLP 1.71 mGy*cm. TECHNIQUE: Multiple axial CT images of the spine were obtained using bone algorithm. Axial and coron al reformatting was done. Bone and soft tissue windows were reviewed. FINDINGS: No CT evidence of definite acute fracture, spinal dislocation, or significant appearing acute subluxa tion is seen. The visualized paraspinal soft tissues are grossly unremarkable. Multilevel degenerative changes of the spine, most pronounced at C5-C6 and C6-C7. Small bone island in the left mandibular condyle. Some of the right mastoid air cells are opacified. IMPRESSION: 1. No definite CT evidence of acute fracture or dislocation of the bony cervical spine.
[2025-02-25] VITALS (18 sets, daily range): BP systolic 103–135; BP diastolic 56–87; PULSE 67–84; RESP 15–22; TEMP 97.2–98.6; O2SAT 92–100
[2025-02-25] MEDS: ONDANSETRON HCL 4 MG/2 ML VIAL IV PRN (01:25)
[2025-02-25 07:43] LABS: Hematocrit 43.9 % (41.0-53.0); Hemoglobin 14.6 g/dL (13.5-17.5); Mean Corpuscular Hemoglobin 30.3 pg (28.0-32.0); Mean Corpuscular Volume 91.2 fL (80.0-100.0); Nucleated Red Blood Cells % 0.0 %; Sodium 141 mmol/L (136-145)
[2025-02-25 07:44] LABS: Anion Gap 9 (5-15)
[2025-02-25 07:47] LABS: Calcium 8.6 mg/dL (8.7-10.4); Carbon Dioxide 37 mmol/L (20-31); Chloride 95 mmol/L (98-107); Potassium 3.4 mmol/L (3.5-5.1)
[2025-02-25 07:49] LABS: Glucose 97 mg/dL (74-106)
[2025-02-25 07:50] LABS: BUN/Creatinine Ratio 15.0 (10.0-20.0); Blood Urea Nitrogen 16 mg/dL (9-23); Magnesium 2.3 mg/dL (1.6-2.6)
[2025-02-25] MEDS: POTASSIUM CHL 20 Meq TABLET PO ONE (14:51)
--- NOTE | 2025-02-25 17:43 | DVHPN2 ---
Progress Note Date Seen: Feb 25, 2025 Medical Necessity Reason Pt with a Central, PICC or Fol: No Subjective Patient reports: No new complaints, Feels better Review of Systems: HEENT:Normal, CVS:Normal, RESPIRATORY:Normal, GI:Normal, :Normal, MSK:Abnormal (+lower leg edema), NEURO:Normal Objective vital signs Vital Sign Date Time Temp Pulse Resp B/P (MAP) Pulse Ox O2 Delivery O2 Flow Rate FiO2 02/25/25 12:28 84 18 98 02/25/25 12:19 Nasal Cannula* 4 36 02/25/25 09:33 120/92 02/25/25 05:00 98.3 98.3 Total Intake and Output 02/24/25 02/24/25 02/25/25 15:00 23:00 07:00 Intake Total 480 ml 1240 ml Output Total 1300 ml Balance 480 ml -60 ml medications Current Medications Medications Dose Ordered Sig/Carlos Alberto Route Start Time Stop Time Status Last Admin Dose Admin Acetaminophen 325 mg Q4HP PRN PO 02/20/25 11:30 02/23/25 16:16 325 MG Ondansetron HCl 4 mg Q4HP PRN IV 02/20/25 11:30 Cancel Nitroglycerin 0.4 mg Q5MINP PRN SL 02/20/25 11:30 Montelukast Sodium 10 mg DAILY PO 02/20/25 11:45 02/25/25 09:11 10 MG Diagnostic Test (Pha) 1 strip ACHS 02/20/25 17:00 02/25/25 17:27 1 STRIP Insulin Human Regular ACHS SC 02/20/25 17:00 02/25/25 11:53 2 UNITS Dextrose 50 ml UD PRN IV 02/20/25 12:45 Fluticasone Propionate 50 mcg Q12HR EACHNOSTRI 02/20/25 22:00 02/25/25 09:10 50 MCG Lisinopril 10 mg DAILY PO 02/21/25 10:00 02/25/25 09:33 10 MG Empaglifozin 10 mg DAILY PO 02/21/25 10:00 02/25/25 09:11 10 MG Carvedilol 12.5 mg BID PO 02/22/25 22:00 02/25/25 09:33 12.5 MG Apixaban 5 mg BID PO 02/22/25 22:00 02/25/25 09:11 5 MG Levalbuterol HCl 0.625 mg Q6HWA NEB 02/22/25 12:00 02/25/25 12:17 0.625 MG Ipratropium [place] 0.5 mg Q6HWA NEB 02/22/25 12:00 02/25/25 12:18 0.5 MG Ondansetron HCl 4 mg Q6HPRN PRN IV 02/22/25 15:15 02/25/25 01:25 4 MG Tramadol HCl 50 mg Q6HP PRN PO 02/22/25 15:15 02/25/25 09:19 50 MG Alprazolam 0.25 mg Q8HP PRN PO 02/22/25 15:15 02/24/25 23:11 0.25 MG Ipratropium [place] 0.5 mg Q4HPRN PRN NEB 02/22/25 23:45 02/25/25 02:32 0.5 MG Spironolactone 25 mg DAILY PO 02/24/25 10:00 02/25/25 09:11 25 MG Bumetanide 25 mg/ Miscellaneous 100 ml @ 4 mls/hr Q24H IV 02/23/25 13:15 02/24/25 18:20 4 MLS/HR Examination: GENERAL:Normal, HEENT:Normal, NECK:Normal, LUNGS:Normal, CVS:Normal, ABDOMEN:Normal, MSK:Abnormal (lower leg + 2 pitting edema), SKIN:Normal, NEURO:Normal laboratory and microbiology Laboratory Tests 02/25/25 04:24 Test 02/25/25 04:24 Range/Units Serum Glucose 97 74-106 mg/dL Problem List/Assessment/Plan Problem List/Assessment/Plan -acute on chronic hypoxic respiratory failure -acute on chronic systolic and diastolic heart failure -obstructive sleep apnea -morbid obesity -amphetamine use -pulmonary hypertension -primary hypertension -diabetes mellitus Plan: Events: Continues to be in a flutter with uncontrolled rate. Now reporting redness and burning to abdominal area. Questionable allergic reaction. Plans for MAURIZIO with cardioversion today. -IV Solu-Medrol, Pepcid, Benadryl -cardiology rec appreciated -continue Bumex drip -fluid restriction -regular insulin sliding scale -change anticoagulation from Lovenox to Eliquis -CPAP at night -bronchodilators as needed -continue beta-kelsy therapy Plan discussed with: Patient My Orders My Orders Orders - SONG MOSQUERA MD Procedure Category Date Status Time Comprehensive LAB 02/25/25 Logged Metabolic Panel 12:06 Dietary Evaluation Review Comments: 1) Advnace to [facility] 60gm + cardiac diet 2) Monitor PO intake, lab values, weight trend, and I/O Expected Outcomes/Goals: To meet >75% estimated needs Fu 2-3 days Date of Service: Feb 25, 2025 Billing Provider: SONG MOSQUERA MD Common Visit Codes: [id number] INP/OBS CARE(HIGH) SONG MOSQUERA MD Feb 25, 2025 17:43
[2025-02-25 19:11] LABS: Alanine Aminotransferase 29 U/L (7-40); Albumin 4.0 g/dL (3.2-4.8); Alkaline Phosphatase 114 U/L (46-116); BUN/Creatinine Ratio 21.5 (10.0-20.0); Bilirubin, Total 1.0 mg/dL (0.2-1.0); Calcium 9.1 mg/dL (8.7-10.4); Potassium 4.1 mmol/L (3.5-5.1); Sodium 141 mmol/L (136-145); Total Protein 6.8 g/dL (5.7-8.2)
[2025-02-25 19:48] LABS: Anion Gap 8.99999 (5-15); Blood Urea Nitrogen 29 mg/dL (9-23); Chloride 92 mmol/L (98-107); Glucose 137 mg/dL (74-106)
[2025-02-25 19:52] LABS: Carbon Dioxide > 40 mmol/L (20-31)
[2025-02-26] VITALS (18 sets, daily range): BP systolic 100–119; BP diastolic 59–80; PULSE 65–79; RESP 15–20; TEMP 97.2–98.5; O2SAT 93–100
[2025-02-26 06:25] LABS: Alanine Aminotransferase 27 U/L (7-40); Albumin 3.9 g/dL (3.2-4.8); Alkaline Phosphatase 110 U/L (46-116); Anion Gap 7 (5-15); BUN/Creatinine Ratio 25.4 (10.0-20.0); Calcium 8.8 mg/dL (8.7-10.4); Glucose 91 mg/dL (74-106); Potassium 3.8 mmol/L (3.5-5.1); Sodium 140 mmol/L (136-145); Total Protein 6.5 g/dL (5.7-8.2)
[2025-02-26 06:27] LABS: Bilirubin, Total 0.8 mg/dL (0.2-1.0)
[2025-02-26 06:47] LABS: Blood Urea Nitrogen 29 mg/dL (9-23); Carbon Dioxide 39 mmol/L (20-31); Chloride 94 mmol/L (98-107)
--- NOTE | 2025-02-26 15:13 | DVHPN2 ---
Progress Note Date Seen: Feb 26, 2025 Medical Necessity Reason Pt with a Central, PICC or Fol: No Subjective Patient reports: No new complaints (Patient is voiding well, able to ambulate. No shortness a breath) Objective vital signs Vital Sign Date Time Temp Pulse Resp B/P (MAP) Pulse Ox O2 Delivery O2 Flow Rate FiO2 02/26/25 13:19 98.0 67 18 103/59 (74) 94 98.0 02/26/25 11:59 4.0 36 02/26/25 11:48 Nasal Cannula* Total Intake and Output 02/25/25 02/25/25 02/26/25 15:00 23:00 07:00 Intake Total 1160 ml 230 ml Output Total 1800 ml 600 ml Balance -640 ml -370 ml medications Current Medications Medications Dose Ordered Sig/Carlos Alberto Route Start Time Stop Time Status Last Admin Dose Admin Acetaminophen 325 mg Q4HP PRN PO 02/20/25 11:30 02/23/25 16:16 325 MG Ondansetron HCl 4 mg Q4HP PRN IV 02/20/25 11:30 Cancel Nitroglycerin 0.4 mg Q5MINP PRN SL 02/20/25 11:30 Montelukast Sodium 10 mg DAILY PO 02/20/25 11:45 02/26/25 09:26 10 MG Diagnostic Test (Pha) 1 strip ACHS 02/20/25 17:00 02/26/25 11:30 1 STRIP Insulin Human Regular ACHS SC 02/20/25 17:00 02/26/25 12:13 2 UNITS Dextrose 50 ml UD PRN IV 02/20/25 12:45 Fluticasone Propionate 50 mcg Q12HR EACHNOSTRI 02/20/25 22:00 02/26/25 09:26 50 MCG Lisinopril 10 mg DAILY PO 02/21/25 10:00 02/26/25 09:28 10 MG Empaglifozin 10 mg DAILY PO 02/21/25 10:00 02/26/25 09:26 10 MG Carvedilol 12.5 mg BID PO 02/22/25 22:00 02/26/25 09:27 12.5 MG Apixaban 5 mg BID PO 02/22/25 22:00 02/26/25 09:26 5 MG Levalbuterol HCl 0.625 mg Q6HWA NEB 02/22/25 12:00 02/26/25 11:49 0.625 MG Ipratropium [place] 0.5 mg Q6HWA NEB 02/22/25 12:00 02/26/25 11:48 0.5 MG Ondansetron HCl 4 mg Q6HPRN PRN IV 02/22/25 15:15 02/25/25 01:25 4 MG Tramadol HCl 50 mg Q6HP PRN PO 02/22/25 15:15 02/26/25 08:12 50 MG Alprazolam 0.25 mg Q8HP PRN PO 02/22/25 15:15 02/24/25 23:11 0.25 MG Ipratropium [place] 0.5 mg Q4HPRN PRN NEB 02/22/25 23:45 02/25/25 02:32 0.5 MG Spironolactone 25 mg DAILY PO 02/24/25 10:00 02/26/25 09:26 25 MG Bumetanide 25 mg/ Miscellaneous 100 ml @ 4 mls/hr Q24H IV 02/23/25 13:15 02/25/25 18:04 4 MLS/HR Examination Generally 59 years old male, morbidly obese, sitting on chair. No apparent distress HEENT-atraumatic normocephalic Heart-regular rate and rhythm lungs clear to auscultate Abdomen soft, nontender, nondistended Musculoskeletal-pedal edema and lower extremity Musculoskeletal-no edema cyanosis laboratory and microbiology Laboratory Tests 02/26/25 04:55 02/25/25 04:24 Test 02/26/25 04:55 Range/Units Serum Glucose 91 74-106 mg/dL Problem List/Assessment/Plan Problem List/Assessment/Plan -acute on chronic hypoxic respiratory failure -acute on chronic systolic and diastolic heart failure -obstructive sleep apnea -morbid obesity -amphetamine use -pulmonary hypertension -primary hypertension -diabetes mellitus Plan: Status post cardioversion with a MAURIZIO 02/24 -cardiology rec appreciated -continue Bumex drip -fluid restriction -daily weight -strict I/O -regular insulin sliding scale -change anticoagulation from Lovenox to Eliquis -CPAP at night -bronchodilators as needed -continue beta-kelsy therapy -Monitor U/O Plan discussed with: Patient My Orders My Orders Orders - SONG MOSQUERA MD Procedure Category Date Status Time Venous Blood Gas RT 02/26/25 Logged 10:49 Dietary Evaluation Review Comments: 1) [facility] + cardiac diet 2) Monitor PO intake, lab values, weight trend, and I/O Expected Outcomes/Goals: To meet >75% estimated needs Fu 2-3 days Date of Service: Feb 26, 2025 Billing Provider: SONG MOSQUERA MD Common Visit Codes: [id number] INP/OBS CARE(HIGH) SONG MOSQUERA MD Feb 26, 2025 15:12
[2025-02-27] VITALS (18 sets, daily range): BP systolic 90–131; BP diastolic 50–104; PULSE 69–80; RESP 14–20; TEMP 97.5–98.6; O2SAT 94–99
--- NOTE | 2025-02-27 12:11 | DVHPN2 ---
Progress Note Date Seen: Feb 27, 2025 Medical Necessity Reason Pt with a Central, PICC or Fol: No Subjective Patient reports: Feels better Objective vital signs Vital Sign Date Time Temp Pulse Resp B/P (MAP) Pulse Ox O2 Delivery O2 Flow Rate FiO2 02/27/25 11:43 77 16 99 02/27/25 09:45 118/81 02/27/25 09:37 Nasal Cannula* 4 36 02/27/25 09:00 97.5 97.5 Total Intake and Output 02/26/25 02/26/25 02/27/25 15:00 23:00 07:00 Intake Total 1630 ml 600 ml Output Total 1500 ml 4600 ml Balance 130 ml -4000 ml medications Current Medications Medications Dose Ordered Sig/Carlos Alberto Route Start Time Stop Time Status Last Admin Dose Admin Acetaminophen 325 mg Q4HP PRN PO 02/20/25 11:30 02/23/25 16:16 325 MG Ondansetron HCl 4 mg Q4HP PRN IV 02/20/25 11:30 Cancel Nitroglycerin 0.4 mg Q5MINP PRN SL 02/20/25 11:30 Montelukast Sodium 10 mg DAILY PO 02/20/25 11:45 02/27/25 09:45 10 MG Diagnostic Test (Pha) 1 strip ACHS 02/20/25 17:00 02/27/25 11:28 1 STRIP Insulin Human Regular ACHS SC 02/20/25 17:00 02/26/25 16:47 3 UNITS Dextrose 50 ml UD PRN IV 02/20/25 12:45 Fluticasone Propionate 50 mcg Q12HR EACHNOSTRI 02/20/25 22:00 02/27/25 09:44 50 MCG Lisinopril 10 mg DAILY PO 02/21/25 10:00 02/27/25 09:45 10 MG Empaglifozin 10 mg DAILY PO 02/21/25 10:00 02/27/25 09:45 10 MG Carvedilol 12.5 mg BID PO 02/22/25 22:00 02/27/25 09:45 12.5 MG Apixaban 5 mg BID PO 02/22/25 22:00 02/27/25 09:46 5 MG Levalbuterol HCl 0.625 mg Q6HWA NEB 02/22/25 12:00 02/27/25 11:32 0.625 MG Ipratropium [place] 0.5 mg Q6HWA NEB 02/22/25 12:00 02/27/25 11:32 0.5 MG Ondansetron HCl 4 mg Q6HPRN PRN IV 02/22/25 15:15 02/25/25 01:25 4 MG Tramadol HCl 50 mg Q6HP PRN PO 02/22/25 15:15 02/27/25 06:30 50 MG Alprazolam 0.25 mg Q8HP PRN PO 02/22/25 15:15 02/24/25 23:11 0.25 MG Ipratropium [place] 0.5 mg Q4HPRN PRN NEB 02/22/25 23:45 02/25/25 02:32 0.5 MG Spironolactone 25 mg DAILY PO 02/24/25 10:00 02/27/25 09:44 25 MG Bumetanide 25 mg/ Miscellaneous 100 ml @ 4 mls/hr Q24H IV 02/23/25 13:15 02/26/25 17:12 4 MLS/HR Examination: GENERAL:Abnormal, HEENT:Abnormal, LUNGS:Abnormal, CVS:Abnormal, ABDOMEN:Abnormal laboratory and microbiology Laboratory Tests 02/26/25 04:55 02/25/25 04:24 Test 02/26/25 04:55 Range/Units Serum Glucose 91 74-106 mg/dL Problem List/Assessment/Plan Problem List/Assessment/Plan AFL --> SR s/p gee guided dccv cont doac recommend po amio and BB high bicarbo, chronic CO2 retention, copd morbid obesity longterm very high risk for AF recurrence needs [facility] treatment, o2 as needed, weight loss fu cards after DC Plan discussed with: Patient Dietary Evaluation Review Comments: 1) Advnace to [facility] 60gm + cardiac diet 2) Monitor PO intake, lab values, weight trend, and I/O Expected Outcomes/Goals: To meet >75% estimated needs Fu 2-3 days Date of Service: Feb 27, 2025 Billing Provider: RADHA OLIVA MD Common Visit Codes: NOT BILLABLE RADHA OLIVA MD Feb 27, 2025 12:11
--- NOTE | 2025-02-27 12:13 | DVHPN2 ---
Subjective Patient continues to report having shortness of breaths. Reviewed: Care Plan, H&P, Labs, Medications, Previous Orders Changes from previous H/P or p: No Changes General: Per HPI Eyes: No Pain, No Vision change, No Conjunctivae inflammation, No Eyelid inflammation, No Other, No Redness ENT: No Ear pain, No Ear discharge, No Nose pain, No Nose discharge, No Nose congestion, No Mouth pain, No Mouth swelling, No Throat pain, No Throat swelling, No Other Cardiovascular: No Chest Pain, No Palpitations, No Orthopnea, No Paroxysmal Noc. Dyspnea, No Edema, No Lt Headedness, No Other Respiratory: No Cough, No Dry; Shortness of breath; No SOB with excertion; W heezing; No Hemoptysis, No Pleuritic Pain, No Sputum, No Other Gastrointestinal: No Nausea, No Vomiting, No Abdominal Pain, No Diarrhea, No Constipation, No Melena, No Hematochezia; Other (Abdomen distention, skin taut) Genitourinary: No Dysuria, No Frequency, No Incontinence, No Hematuria, No Retention, No Other Musculoskeletal: No other, No neck pain, No shoulder pain, No arm pain, No back pain, No hand pain, No leg pain, No foot pain Skin: No Rash, No Lesions, No Jaundice, No Bruising; Other (Discoloration to bilateral lower extremities, bilateral lower extremities are edematous, nonpitting) Objective Vitals Vital Signs Date Time Temp Pulse Resp B/P (MAP) Pulse Ox O2 Delivery O2 Flow Rate FiO2 02/27/25 11:43 77 16 99 02/27/25 09:45 118/81 02/27/25 09:37 Nasal Cannula* 4 36 02/27/25 09:00 97.5 97.5 Intake/Output Intake and Output 02/27/25 07:00 Intake Total 2230 ml Output Total 6100 ml Balance -3870 ml Intake Oral 2230 ml Output Urine Total 6100 ml General Appearance: Alert, Oriented X3, Cooperative, mild distress HEENT: Atraumatic, PERRLA Lungs: Clear to auscultation, Normal air movement Cardiovascular: Normal S1, Normal S2 Abdomen: Normal bowel sounds, Soft, No hepatospenomegaly, Other (Redness noted to abdominal area) Genitourinary: No Apparent Abnormalities Musculoskeletal: Normal sensory function, Normal motor function Extremities: No clubbing, No cyanosis, No edema, Normal pulses, No tenderness/swelling Neuro: Normal gait, Normal speech Skin: Dry, Intact Psych/Mental Status: Mental status NL, Mood NL Medications Current Medications Medications Dose Ordered Sig/Carlos Alberto Route Start Time Stop Time Status Last Admin Dose Admin Acetaminophen 325 mg Q4HP PRN PO 02/20/25 11:30 02/23/25 16:16 325 MG Ondansetron HCl 4 mg Q4HP PRN IV 02/20/25 11:30 Cancel Nitroglycerin 0.4 mg Q5MINP PRN SL 02/20/25 11:30 Montelukast Sodium 10 mg DAILY PO 02/20/25 11:45 02/27/25 09:45 10 MG Diagnostic Test (Pha) 1 strip ACHS 02/20/25 17:00 02/27/25 11:28 1 STRIP Insulin Human Regular ACHS SC 02/20/25 17:00 02/26/25 16:47 3 UNITS Dextrose 50 ml UD PRN IV 02/20/25 12:45 Fluticasone Propionate 50 mcg Q12HR EACHNOSTRI 02/20/25 22:00 02/27/25 09:44 50 MCG Lisinopril 10 mg DAILY PO 02/21/25 10:00 02/27/25 09:45 10 MG Empaglifozin 10 mg DAILY PO 02/21/25 10:00 02/27/25 09:45 10 MG Carvedilol 12.5 mg BID PO 02/22/25 22:00 02/27/25 09:45 12.5 MG Apixaban 5 mg BID PO 02/22/25 22:00 02/27/25 09:46 5 MG Levalbuterol HCl 0.625 mg Q6HWA NEB 02/22/25 12:00 02/27/25 11:32 0.625 MG Ipratropium [place] 0.5 mg Q6HWA NEB 02/22/25 12:00 02/27/25 11:32 0.5 MG Ondansetron HCl 4 mg Q6HPRN PRN IV 02/22/25 15:15 02/25/25 01:25 4 MG Tramadol HCl 50 mg Q6HP PRN PO 02/22/25 15:15 02/27/25 06:30 50 MG Alprazolam 0.25 mg Q8HP PRN PO 02/22/25 15:15 02/24/25 23:11 0.25 MG Ipratropium [place] 0.5 mg Q4HPRN PRN NEB 02/22/25 23:45 02/25/25 02:32 0.5 MG Spironolactone 25 mg DAILY PO 02/24/25 10:00 02/27/25 09:44 25 MG Bumetanide 25 mg/ Miscellaneous 100 ml @ 4 mls/hr Q24H IV 02/23/25 13:15 02/26/25 17:12 4 MLS/HR Laboratory Results Laboratory Tests 02/25/25 04:24 02/26/25 04:55 Urinalysis Test 02/20/25 04:10 Urine Color Yellow (Yellow) Urine Clarity Clear (Clear) Urine pH 6.0 (5.0-9.0) Urine Specific Reader 1.014 (1.001-1.035) Urine Protein Trace (Negative) H Urine Ketones Negative (Negative) Urine Blood Negative /uL (Negative) Urine Nitrite Negative (Negative) Urine Bilirubin Negative (Negative) Urine Urobilinogen Normal mg/dL (Negative) Urine Leukocyte Esterase Trace /uL (Negative) Urine RBC 2 /hpf (0 - 3) Urine Microscopic WBC 7 /HPF (0-3) H Urine Squamous Epithelial Cells Few /hpf (<5) Urine Calcium Oxalate Crystals Mod (None Seen) Urine Bacteria Few /hpf (None Seen) H Urine Hyaline Casts Few /lpf (0 - 2) Urine Mucus Few (None Seen) Urine Glucose Normal mg/dL (Normal) Labs and/or images reviewed: Labs reviewed by me, Image(s) reviewed by me Assessment/Plan Assessment/Plan Impression: -acute on chronic hypoxic respiratory failure -acute on chronic systolic and diastolic heart failure -obstructive sleep apnea -morbid obesity -amphetamine use -pulmonary hypertension -primary hypertension -diabetes mellitus Plan: Events: Continues to be in sinus rhythm. Hemodynamically improving. Adequate urine output. -stop Bumex drip, switched to IV Bumex -physical therapy consultation given recent fall -fluid restriction -regular insulin sliding scale -continue anticoagulation with Eliquis -CPAP at night -bronchodilators as needed -continue beta-kelsy therapy -repeat labs in a.m. Total time spent with patient discussing and formulating plan of care: 35 minutes. This medical document was created using an electronic medical record system with [employer] computerized dictation system. Although this document has been carefully reviewed, there may still be some phonetic and typographical errors. These areas are purely typographical due to imperfections of the software programs, and do not reflect any compromise in the patient's medical care. Plan discussed with: Patient, Other (RN) Date of Service: Feb 27, 2025 Billing Provider: KEYLA GASTELUM NP Common Visit Codes: [id number] INP/OBS CARE(HIGH) KEYLA GASTELUM NP Feb 27, 2025 12:13
--- NOTE | 2025-02-27 13:20 | DVH ---
CHEST RADIOGRAPH Indication: chf Technique: Single frontal view of the chest was obtained Comparison: XY CHEST PORTABLE on DOS: 02/21/25, XY CHEST PORTABLE on DOS: 02/20/25, XY CHEST PORTABLE on DOS: 08/02/24, XY CHEST PORTABLE on DOS: 07/31/24, EKG on DOS: 04/07/22 FINDINGS: Lines and Tubes: None Lungs: No focal consolidation. Pleura: No effusion. No pneumothorax. Cardiomediastinal contours: Cardiomegaly Bones: No acute osseous abnormality. IMPRESSION: Cardiomegaly with CHF
--- NOTE | 2025-02-27 14:05 | ECG ---
[facility] Test Date: 2025-02-24 Test Time: 17:33:09 Pat Name: IRMA BARRIENTOS Department: Respiratoy Room: [facility]6T B Gender: M [employer]: kevin : 1965 Requested By: MALLORIE MARTE Order Number: [id number] Reading MD: Sixto Conner Measurements Intervals [place] Rate: 79 P: 62 IA: 193 QRS: 78 QRSD: 99 T: 11 QT: 403 QTc: 463 Interpretive Statements Sinus rhythm Low voltage, precordial leads Borderline repolarization abnormality Electronically Signed On 02-27-2025 14:30:26 PDT by Sixto Conner Please click the below link to view image of tracing.
[2025-02-27] MEDS: BUMETANIDE 2.5mg/10ml (0.25 mg/ml) INJ IV SCH (17:54)
[2025-02-27] MEDS: CALCIUM CARB 500 MG CHEW TAB PO PRN (22:30)
[2025-02-28] VITALS (12 sets, daily range): BP systolic 121–133; BP diastolic 72–81; PULSE 73–136; RESP 12–22; TEMP 36.6; O2SAT 90–98
[2025-02-28] MEDS ORDERED: APIX5TAB PO (13:04)
[2025-02-28] MEDS ORDERED: BUME1TAB3 PO (13:04)
[2025-02-28] MEDS ORDERED: CARV12.544 PO (13:04)
[2025-02-28] MEDS ORDERED: EMPA1TAB PO (13:04)
[2025-02-28] MEDS ORDERED: SPIR25TA PO (13:04)
[2025-02-28] MEDS ORDERED: LISI20TA56 PO (13:05)
--- NOTE | 2025-02-28 13:10 | DVHDS2 ---
Discharge Summary Date of Admission Feb 20, 2025 at 11:19 Date of Discharge: Feb 28, 2025 Admitting Diagnosis CHF exacerbation Labs/Diagnostic Data: Laboratory Results Test 02/28/25 11:27 02/26/25 04:55 02/25/25 04:24 02/23/25 06:48 POC Glucose 154 mg/dl (70-106) Sodium Level 140 mmol/L (136-145) Potassium Level 3.8 mmol/L (3.5-5.1) Chloride Level 94 mmol/L (98-107) Carbon Dioxide Level 39 mmol/L (20-31) Anion Gap 7 (5-15) Blood Urea Nitrogen 29 mg/dL (9-23) Creatinine 1.14 mg/dL (0.700-1.30) Glomerular Filtration Rate Calc 73 mL/min (>90) BUN/Creatinine Ratio 25.4 (10.0-20.0) Serum Glucose 91 mg/dL (74-106) Calcium Level 8.8 mg/dL (8.7-10.4) Magnesium Level 2.2 mg/dL (1.6-2.6) Total Bilirubin 0.8 mg/dL (0.2-1.0) Aspartate Amino Transferase (AST) 28 U/L (13-40) Alanine Aminotransferase (ALT) 27 U/L (7-40) Alkaline Phosphatase 110 U/L (46-116) Total Protein 6.5 g/dL (5.7-8.2) Albumin 3.9 g/dL (3.2-4.8) White Blood Count 7.3 10^3/uL (4.4-10.8) Red Blood Count 4.82 10^6/uL (4.5-5.90) Hemoglobin 14.6 g/dL (13.5-17.5) Hematocrit 43.9 % (41.0-53.0) Mean Corpuscular Volume 91.2 fL (80.0-100.0) Mean Corpuscular Hemoglobin 30.3 pg (28.0-32.0) Mean Corpuscular Hemoglobin Concent 33.3 g/dL (32.0-36.0) Red Cell Distribution Width 16.0 % (11.8-14.3) Platelet Count 232 10^3/uL (140-450) Mean Platelet Volume 8.3 fL (6.9-10.8) Neutrophils (%) (Auto) 66.7 % (37.0-80.0) Lymphocytes (%) (Auto) 12.1 % (10.0-50.0) Monocytes (%) (Auto) 15.9 % (0.0-12.0) Eosinophils (%) (Auto) 4.4 % (0.0-7.0) Basophils (%) (Auto) 0.9 % (0.0-2.0) Neutrophils # (Auto) 4.8 10 ^3/uL (1.6-8.6) Lymphocytes # (Auto) 0.9 10 ^3/uL (0.4-5.4) Monocytes # (Auto) 1.2 10 ^3/uL (0-1.3) Eosinophils # (Auto) 0.3 10 ^3/uL (0-0.8) Basophils # (Auto) 0.1 10 ^3/uL (0-0.2) Nucleated Red Blood Cells 0.0 % Blood Gas Specimen Type Arterial Blood Gas Sample Site Right radial Blood Gas Patient Temperature 37.0 Arterial Blood Date Drawn [id number] Arterial Blood pH 7.408 (7.350-7.450) Arterial Blood Partial Pressure CO2 53.2 mmHg (35.0-48.0) Arterial Blood Partial Pressure O2 117.4 mmHg (83.0-108.0) Arterial Blood HCO3 32.8 mmol/L (21.0-28.0) Arterial Blood Oxygen Saturation 98.0 % (94.0-98.0) Arterial Blood Base Excess 6.5 mmol/L (-2.0-3.0) Arterial Blood Oxyhemoglobin 96.7 % (94.0-98.0) Arterial Blood Carboxyhemoglobin 0.7 % (0.5-1.5) Arterial Blood Methemoglobin 0.6 % (0.0-1.5) Sumeet Test Modified Blood Gas Total Hemoglobin 14.70 g/dL (13.5-17.5) Blood Gas Modality Mask - cpap Blood Gas Spontaneous Rate 13 FiO2 % 40.0 Blood Gas Spontaneous Tidal Volume 514 Blood Gas PEEP or CPAP 10.0 Test 02/22/25 07:13 02/20/25 07:30 02/20/25 04:10 B-Type Natriuretic Peptide 391.70 pg/mL (0-100) Troponin I High Sensitivity 24 ng/L (</=54) Thyroid Stimulating Hormone (TSH) 1.16 uIU/mL (0.55-4.78) Urine Color Yellow (Yellow) Urine Clarity Clear (Clear) Urine pH 6.0 (5.0-9.0) Urine Specific [place] 1.014 (1.001-1.035) Urine Protein Trace (Negative) Urine Ketones Negative (Negative) Urine Blood Negative /uL (Negative) Urine Nitrite Negative (Negative) Urine Bilirubin Negative (Negative) Urine Urobilinogen Normal mg/dL (Negative) Urine Leukocyte Esterase Trace /uL (Negative) Urine RBC 2 /hpf (0 - 3) Urine Microscopic WBC 7 /HPF (0-3) Urine Squamous Epithelial Cells Few /hpf (<5) Urine Calcium Oxalate Crystals Mod (None Seen) Urine Bacteria Few /hpf (None Seen) Urine Hyaline Casts Few /lpf (0 - 2) Urine Mucus Few (None Seen) Urine Glucose Normal mg/dL (Normal) Urine Opiates Screen Neg (NEGATIVE) Urine Fentanyl Screen Neg (NEGATIVE) Urine Barbiturates Screen Neg (NEGATIVE) Urine Phencyclidine Screen Neg (NEGATIVE) Urine Amphetamines Screen Pos (NEGATIVE) Urine Benzodiazepines Screen Neg (NEGATIVE) Urine Cocaine Screen Neg (NEGATIVE) Urine Cannabinoids Screen Neg (NEGATIVE) Other Laboratory Tests 02/26/25 04:55 02/25/25 04:24 Brief Hx & Hospital Course: History of Present Illness 59-year-old male presented with history of CHF unsure who his photo editor is, borderline DM type 2, hypertension, fatty liver with chief complaint of abdominal distention and shortness of breath times with worsening symptoms over the past 2 weeks, patient states that he had been working a lot and thinks that is why he built up so much fluid, patient's bilateral lower extremities are edematous, skin is taut, as well as abdomen. Patient was given Lasix in the ER and has been urinating. Patient denies any chest pain, abdominal pain, nausea, vomiting or any other related symptoms. BNP 467. Abdominal ultrasound pending for possible ascites. Patient will be admitted to telemetry for further treatment and management. Course of hospitalization: Patient was started on IV diuresis, with the need to titrate to Bumex drip to achieve adequate diuresis. Patient was also placed on spironolactone, as well as Jardiance. Echocardiogram reveals ejection fraction of 30%. Patient was also found to be in a flutter with rapid ventricular rate despite beta-kelsy therapy. Cardiology consultation was obtained. Patient underwent MAURIZIO with cardioversion on 02/24/2025. Patient had conversion to sinus rhythm, for which he continues to be in sinus rhythm. Bumex drip was discontinued yesterday, with Bumex changed to IV push twice a day. Patient's activity intolerance with ambulation has improved dramatically. Patient will be discharged home and will be continued on guideline directed medical therapy as well as Eliquis 5 mg p.o. b.i.d. for patient has new onset atrial flutter after evaluating CHADS-VASc score. Toxicology screen was positive for amphetamines, for which patient was given lifestyle modification education regarding the need to abstain from illicit drug use. Patient verbalized understanding. Patient reports having home oxygen as well as home CPAP machine for sleep apnea. He is instructed to continue with his established appointment with his PCP on 03/02/2025. Patient does report having in his established photo editor, for which he is instructed to follow up as an outpatient within 1-2 weeks. Patient was agreeable with discharge plan. All questions answered. Physical exam General: Alert and Oriented x3. No acute distress. Well-nourished. Obese Eyes: EOMI. Anicteric. HENT: Moist mucous membranes. Lungs: Clear to auscultation bilaterally. No accessory muscle use. Cardiovascular: Regular rate and rhythm. No murmur. No JVD. Abdomen: Soft, non-tender and non-distended. No palpable masses. Extremities: No edema. Non-tender. Skin: No rashes or lesions. Warm. Neurologic: No focal neurological deficits. CN II-XII grossly intact, but not individually tested. Psychiatric: Cooperative. Appropriate mood and affect. Total time spent with patient discussing and formulating plan of care: 35 minutes. This medical document was created using an electronic medical record system with [employer] system. Although this document has been carefully reviewed, there may still be some phonetic and typographical errors. These areas are purely typographical due to imperfections of the software programs, and do not reflect any compromise in the patient's medical care. Consults/Reason for consult Cardiology: Decompensated heart failure with new onset atrial flutter Condition at Discharge: Guarded Final Diagnosis/Problems List Acute Decompensated systolic heart failure -acute on chronic hypoxic respiratory failure -acute on chronic systolic and diastolic heart failure -obstructive sleep apnea -morbid obesity -amphetamine use -pulmonary hypertension -primary hypertension -diabetes mellitus Discharge Disposition: Home Discharge Instruct/Medications Diet: Cardiac 2g Na,low cholest Activity: No Restrictions, As Tolerated Follow Up/Referral: Follow up with PCP, Dr. Andrews at scheduled appointment on 03/02 Follow up with photo editor in 1-2 weeks. Medications: Coreg 12.5 mg p.o. b.i.d. Lisinopril 10 mg p.o. daily Spironolactone 25 mg p.o. daily Jardiance 10 mg p.o. daily Bumex 1 mg p.o. b.i.d. Eliquis 5 mg p.o. daily Scheduled Amlodipine Besylate (Amlodipine Besylate), 5 MG PO DAILY, (Reported) Apixaban Base (Eliquis), 5 MG PO BID Bumetanide (Bumetanide), 1 MG PO BID Carvedilol (Carvedilol), 12.5 MG PO BID Doxycycline (Monohydrate) (Doxycycline), 100 MG PO BID Empagliflozin (Jardiance), 10 MG PO DAILY Glipizide (Glipizide), 5 MG PO BID, (Reported) Lisinopril (Lisinopril), 10 MG PO DAILY Lisinopril & Hydrochlorothiazi (Zestoretic 20-12.5 mg), 1 TAB PO DAILY, (Reported) Losartan Potassium (Losartan Potassium), 100 MG PO DAILY, (Reported) Metformin Hydrochloride (Metformin Hcl), 500 MG PO IBID, (Reported) Metoprolol Tartrate (Metoprolol Tartrate), 100 MG PO BID, (Reported) Montelukast Sodium (Montelukast Sodium), 1 TAB PO DAILY, (Reported) Potassium Chloride (Potassium Chloride ER), 20 MEQ PO DAILY, (Reported) Spironolactone (Aldactone), 25 MG PO DAILY Scheduled PRN Clonidine Hydrochloride (Clonidine Hcl), 0.1 MG PO Q6HR PRN for SBP>160 or DBP>105, (Reported) 36 Discharge Statement: "Patient was advised to return to the ER or call 911 if any headaches, dizziness, shortness of breath, chest pain, abdominal pain, bleeding, fevers, or worsening of medical condition. Patient was counseled about treatment plan, medications, possible side effects, patientverbalized understanding. All questions were answered to the best of my ability. This discharge took greater then 30 minutes in planning, reviewing documentation, counseling the patient, and discussing with other team members." ASSESSMENT ASSESSMENT Assessment Acute Decompensated systolic heart failure Date of Service: Feb 28, 2025 Billing Provider: EKYLA GASTELUM NP Common Visit Codes: [id number]-[id number] DISCH DAY >30min KEYLA GASTELUM NP Feb 28, 2025 13:10
--- NOTE | 2025-02-28 16:35 | DVHPN2 ---
Progress Note Date Seen: Feb 28, 2025 Medical Necessity Reason Pt with a Central, PICC or Fol: No Subjective Patient reports: Feels better Objective vital signs Vital Sign Date Time Temp Pulse Resp B/P (MAP) Pulse Ox O2 Delivery O2 Flow Rate FiO2 02/28/25 13:57 36.6 78 18 95 02/28/25 13:00 121/73 (89) 02/28/25 12:11 Nasal Cannula* 3 32 Total Intake and Output 02/27/25 02/27/25 02/28/25 15:00 23:00 07:00 Intake Total 1500 ml 1200 ml Output Total 2200 ml 1710 ml Balance -700 ml -510 ml medications Current Medications Medications Dose Ordered Sig/Carlos Alberto Route Start Time Stop Time Status Last Admin Dose Admin Ondansetron HCl 4 mg Q4HP PRN IV 02/20/25 11:30 Cancel Examination: GENERAL:Abnormal, HEENT:Abnormal, LUNGS:Abnormal, CVS:Abnormal, ABDOMEN:Abnormal laboratory and microbiology Laboratory Tests 02/26/25 04:55 02/25/25 04:24 Test 02/26/25 04:55 Range/Units Serum Glucose 91 74-106 mg/dL Problem List/Assessment/Plan Problem List/Assessment/Plan AFL --> SR s/p gee guided dccv cont doac recommend po amio and BB high bicarbo, chronic CO2 retention, copd morbid obesity long-term very high risk for AF recurrence needs [facility] treatment, o2 as needed, weight loss fu cards after dc pt leaving hospital today Plan discussed with: Patient Dietary Evaluation Review Comments: 1) Advnace to [facility] 60gm + cardiac diet 2) Monitor PO intake, lab values, weight trend, and I/O Expected Outcomes/Goals: To meet >75% estimated needs Fu 2-3 days Date of Service: Feb 28, 2025 Billing Provider: RADHA OLIVA MD Common Visit Codes: NOT BILLABLE RADHA OLIVA MD Feb 28, 2025 16:35
== END 2025-02-28 16:04 | disposition home or self-care (01) | DRG 291 ==
LOC: ER 02:41 → OVERFLOW 11:19 → TELE-WESTW 02-21 20:10
PROVIDERS: ADMIT Nurse Practitioner Acute Care; ATTEND Nurse Practitioner Acute Care
PROC: 5A09357 Assistance with Respiratory Ventilation, Less than 24 Consecutive Hours, Continuous Positive Airway Pressure (ICD-10-PCS; 2025-02-20)
PROC: 5A09357 Assistance with Respiratory Ventilation, Less than 24 Consecutive Hours, Continuous Positive Airway Pressure (ICD-10-PCS; 2025-02-21)
PROC: 5A09357 Assistance with Respiratory Ventilation, Less than 24 Consecutive Hours, Continuous Positive Airway Pressure (ICD-10-PCS; 2025-02-23)
PROC: 5A2204Z Restoration of Cardiac Rhythm, Single (ICD-10-PCS; principal; 2025-02-24)
PROC: B24BZZ4 Ultrasonography of Heart with Aorta, Transesophageal (ICD-10-PCS; 2025-02-24)
PROC: 5A09357 Assistance with Respiratory Ventilation, Less than 24 Consecutive Hours, Continuous Positive Airway Pressure (ICD-10-PCS; 2025-02-24)
PROC: 5A09357 Assistance with Respiratory Ventilation, Less than 24 Consecutive Hours, Continuous Positive Airway Pressure (ICD-10-PCS; 2025-02-25)
PROC: 5A09357 Assistance with Respiratory Ventilation, Less than 24 Consecutive Hours, Continuous Positive Airway Pressure (ICD-10-PCS; 2025-02-26)
PROC: 5A09357 Assistance with Respiratory Ventilation, Less than 24 Consecutive Hours, Continuous Positive Airway Pressure (ICD-10-PCS; 2025-02-27)
PROC: 5A09357 Assistance with Respiratory Ventilation, Less than 24 Consecutive Hours, Continuous Positive Airway Pressure (ICD-10-PCS; 2025-02-27)
DX: I11.0 Hypertensive heart disease with heart failure (principal); I50.43 Acute on chronic combined systolic (congestive) and diastolic (congestive) heart failure; J96.21 Acute and chronic respiratory failure with hypoxia; R18.8 Other ascites; I48.92 Unspecified atrial flutter; I42.7 Cardiomyopathy due to drug and external agent; E11.9 Type 2 diabetes mellitus without complications; F17.210 Nicotine dependence, cigarettes, uncomplicated; E66.01 Morbid (severe) obesity due to excess calories; I27.20 Pulmonary hypertension, unspecified; I20.0 Unstable angina; K76.0 Fatty (change of) liver, not elsewhere classified; J44.9 Chronic obstructive pulmonary disease, unspecified; F15.90 Other stimulant use, unspecified, uncomplicated; G47.33 Obstructive sleep apnea (adult) (pediatric); I34.0 Nonrheumatic mitral (valve) insufficiency; Z83.3 Family history of diabetes mellitus; Z88.5 Allergy status to narcotic agent; Z79.84 Long term (current) use of oral hypoglycemic drugs; Z71.6 Tobacco abuse counseling; Z82.49 Family history of ischemic heart disease and other diseases of the circulatory system; Z80.1 Family history of malignant neoplasm of trachea, bronchus and lung; Z91.199 Patient's noncompliance with other medical treatment and regimen due to unspecified reason; Z79.01 Long term (current) use of anticoagulants; Z68.36 Body mass index [BMI] 36.0-36.9, adult
CPT/HCPCS: 36415; 36600; 70450; 71045; 72125; 76700; 80048; 80053; 80307; 81001; 82805; 82962; 83735; 83880; 84443; 84484; 85025; 93005; 93306; 93312; 94640; 94660; 96374; 97163; 99152; 99291; G0378; J1815; J2250; J2405